=== PATIENT | female | born 1985 | race Caucasian/White ===

== ENCOUNTER → 2024-05-10 | Outpatient (CLI) | payer SELFPAY ==
--- NOTE | 2024-05-10 11:46 | US_ITS ---
STUDY: FIRST TRIMESTER OBSTETRICAL ULTRASOUND REASON FOR EXAM: Female, 38 years old spotting in early LMP: March 28, 2024. TECHNIQUE: Transvaginal TECHNICAL QUALITY: Adequate. PRIOR ULTRASOUND: None. FINDINGS: There is visualization of a single gestational sac in a normal intrauterine position. The mean sac diameter (MSD) measures 9 mm, indicating an estimated gestational age (EGA) of 5 weeks, 5 days. The gestational sac shape is within normal limits. There is a visualized yolk sac. The yolk sac measures 2.7 mm. The placenta is non-visualized. There is no demonstrated embryo ( pole). The estimated gestation age (EGA) by LMP is 6 weeks, 1 days. The estimated date of delivery (NAIDA) by LMP is January 02, 2025. The estimated gestation age (EGA) by US is 5 weeks, 5 days. The estimated date of delivery (NAIDA) by US is January 05, 2025. The uterus measures 8.7 cm x 5.9 cm x 4.2 cm. There is a 2.7 cm x 2.8 cm x 2.3 cm uterine fibroid. The cervix is closed. The patient is status post right nephrectomy. The left ovary measures 4.7 cm x 3.8 cm x 3.1 cm. There is a 1.9 cm x 1.8 cm x 1.6 cm left paraovarian cyst. There is no visualized left adnexal mass or complex lesion. There is no fluid in the cul de sac. US/Transvaginal w/Preg US IMPRESSION: Intrauterine gestational sac corresponding to 5 weeks and 5 days. No embryonic cardiac activity is noted at this time. Uterine fibroid. Left paraovarian cyst. Electronically Signed: Ishmael Montoya MD at 14:03 EST ,
[2024-05-10 13:59] LABS: hCG Titer Quant., Serum 4528 mIU/mL (1-3)
== END | disposition home or self-care (01) ==
PROVIDERS: Referring Provider Obstetrics & Gynecology; Visit Provider Obstetrics & Gynecology
DX: O26.859 Spotting complicating pregnancy, unspecified trimester (principal); Z3A.00 Weeks of gestation of pregnancy not specified
CPT/HCPCS: 36415; 76817; 84702; 86850; 86900; 86901

== ENCOUNTER → 2024-05-12 | Outpatient (CLI) | payer SELFPAY ==
[2024-05-12 11:45] LABS: hCG Titer Quant., Serum 6923 mIU/mL (1-3)
== END | disposition home or self-care (01) ==
PROVIDERS: Visit Provider Obstetrics & Gynecology
DX: O26.859 Spotting complicating pregnancy, unspecified trimester (principal); Z3A.00 Weeks of gestation of pregnancy not specified
CPT/HCPCS: 84702

== ENCOUNTER → 2024-05-24 | Outpatient (CLI) | payer SELFPAY ==
[2024-05-24 12:22] LABS: Amphetamine Urine VISTA NEGATIVE (<1000 ng/mL); Barbiturate Urine VISTA NEGATIVE (< 200 ng/mL); Benzodiazepine Urine VISTA NEGATIVE (< 200 ng/mL); Cocaine Urine VISTA NEGATIVE (< 300 ng/mL); Ecstacy Urine VISTA NEGATIVE (< 500 ng/mL); Methadone Urine VISTA NEGATIVE (< 300 ng/mL); PCP Urine VISTA NEGATIVE (< 25 ng/mL); THC Urine VISTA NEGATIVE (< 50 ng/mL); Vista UDS pH Range 4
[2024-05-24 13:04] LABS: hCG Titer Quant., Serum 17898 mIU/mL (1-3)
[2024-05-28 00:06] LABS: Chlamydia By Nucleic Acid AMP Negative (Negative); Gonococcus By Nucleic Acid AMP Negative (Negative)
== END | disposition home or self-care (01) ==
PROVIDERS: Obstetrics & Gynecology; Referring Provider Advanced Practice Midwife; Visit Provider Advanced Practice Midwife
DX: O20.0 Threatened abortion (principal); Z3A.00 Weeks of gestation of pregnancy not specified
CPT/HCPCS: 36415; 80307; 84702; 87077; 87086; 87088; 87186; 87491; 87591

== ENCOUNTER → 2024-05-29 | Outpatient (CLI) | payer SELFPAY ==
--- NOTE | 2024-05-29 10:51 | US_ITS ---
INDICATION: viability. Right oophorectomy. COMPARISON: 05/10/2024 ultrasound. FINDINGS: 60 grayscale ultrasound images obtained transvaginally demonstrate single live intrauterine measuring at 6 weeks +5 days average ultrasound age. This gives estimated date of delivery by current ultrasound of 01/17/2025. However, crown-rump length measures at 6 weeks +2 days. In addition, heart rate is only 72 bpm (which may possibly represent maternal heart rate). Yolk sac is identified. Adequate amniotic fluid for gestational age. Placenta cannot be definitively identified at this gestational age. Uterine myometrium demonstrates dominant 2.5 cm subendometrial fibroid. Uterine cervix is long and closed measuring at least 3 cm in length. Nabothian cyst at the ectocervix. Left ovary is enlarged measuring 5.0 x 4.1 x 3.0 cm without definite discrete lesion. Right ovary is absent as per history. No significant free fluid. US/Transvaginal w/Preg US IMPRESSION: Single live intrauterine measuring at 6 weeks +5 days average ultrasound age. This gives estimated date of delivery by current ultrasound of 01/17/2025. However, crown-rump length measures at 6 weeks +2 days. In addition, heart rate is only 72 bpm (which may possibly represent maternal heart rate). Recommend correlation with serial quantitative beta-hCG values as well as short interval follow-up ultrasound to confirm continued viable intrauterine . Electronically Signed: Clayton Samuel MD at 7:19 EST ,
== END | disposition home or self-care (01) ==
LOC: OPUS 10:50 → US 10:51
PROVIDERS: Referring Provider Advanced Practice Midwife; Visit Provider Advanced Practice Midwife
DX: O20.0 Threatened abortion (principal); Z3A.01 Less than 8 weeks gestation of pregnancy
CPT/HCPCS: 76817

== ENCOUNTER → 2024-06-18 | Outpatient (CLI) | payer SELFPAY ==
--- NOTE | 2024-06-18 12:17 | US_ITS ---
STUDY: FIRST TRIMESTER OBSTETRICAL ULTRASOUND REASON FOR EXAM: Female, 38 years old follow up miscarriage LMP: 03/28/2024 TECHNIQUE: Transvaginal TECHNICAL QUALITY: Adequate. PRIOR ULTRASOUND: 05/29/2024 FINDINGS: There is no demonstrated intrauterine gestational sac.. The uterus measures 8.0 x 6.5 x 4.1 cm. There is no demonstrated uterine fibroid. The cervix is closed. The endometrium measures 16 mm thick which is the upper limits of normal and is somewhat heterogeneous. Status post right oophorectomy. The left ovary measures 5.3 x 4.3 x 2.9. There is no left ovarian cyst. There is no visualized left adnexal mass or complex lesion. There is no fluid in the cul de sac. US/Transvaginal w/Preg US IMPRESSION: Heterogeneous endometrial stripe but no definite evidence of retained products of conception Electronically Signed: Shaun Garvin MD at 0:17 EST ,
[2024-06-18 14:17] LABS: hCG Titer Quant., Serum 85 mIU/mL (1-3)
== END | disposition home or self-care (01) ==
PROVIDERS: Obstetrics & Gynecology; Referring Provider Obstetrics & Gynecology; Visit Provider Obstetrics & Gynecology
DX: O03.9 Complete or unspecified spontaneous abortion without complication (principal)
CPT/HCPCS: 36415; 76817; 84702

== ENCOUNTER → 2024-12-09 | Outpatient (CLI) | payer SELFPAY ==
[2024-12-09 14:06] LABS: hCG Titer Quant., Serum 3106 mIU/mL (<9 non-preg)
== END | disposition home or self-care (01) ==
PROVIDERS: Referring Provider Obstetrics & Gynecology; Visit Provider Obstetrics & Gynecology
DX: N91.2 Amenorrhea, unspecified (principal)
CPT/HCPCS: 36415; 84702

== ENCOUNTER → 2024-12-11 | Outpatient (CLI) | payer SELFPAY ==
[2024-12-11 12:53] LABS: hCG Titer Quant., Serum 6046 mIU/mL (<9 non-preg)
--- OUTSIDE RECORDS SUMMARY | 2024-12-11 21:40 | XMS RPT_ITS | CCD ---
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 Role Phone [place] Attending Unavailable YARIEL TRIPATHI Primary Care Unavailable Yariel Tripathi Primary Care Provider Yariel Tripathi Primary Care Provider Yariel Tripathi MD Primary Care Provider Palmira VILLANUEVA MD, Frank A Primary Care Provider [phone] YARIEL TRIPATHI III Primary Care Unavailable ROXIE, TATO JAYANTILAL Referring Unavail able ROXIE, TATO CHRISTAYANSHEREENAL Admitting Unavail able JIHAN العراقي Attending Unavailable JIHAN العراقي Referring Unavailable YARIEL TRIPATHI Primary Care Unavailable MAGALY FERNANDO Admitting Unavailable MAGALY FERNANDO Primary Care Unavailable MAGALY FERNANDO Referring Unavailable REKHA PINO Attending Unavailable Yariel Tripathi MD Primary Care Provider [phone] SELF, SELF Referring Unavailable RAIZA BORGES Attending Unavailable YARIEL TRIPATHI Primary Care Unavailable SELF, SELF Referring Unavailable YARIEL TRIPATHI Primary Care Unavailable BORIS VELA Attending Unavailable MERCY WONG Attending Unavailable RAIZA BORGES Referring Unavailable YARILE TRIPATHI Primary Care Unavailable NO, PHYSICIAN Primary Care Unavailable PABLO VIGIL Attending Unavailable DOMINGA REILLY Admitting Unavailable NO, PHYSICIAN Primary Care Unavailable DOMINGA REILLY Attending Unavailable DOMINGA REILLY Consulting Unavailable Zulema Ramirez Referring Unavailshazia e Zulema Ramirez Attending Unavailabl e Care Physician, No Primary Primary Care Unava ilable Care Physician, No Primary Referring Unava ilable Zulema Ramirez Attending Unavailabl e Care Physician, No Primary Primary Care Unava ilable Care Physician, No Primary Referring Unava ilable Janice Palacios Attending Unavailable Care Physician, No Primary Primary Care Unava ilable Care Physician, No Primary Primary Care Unava ilable Samantha Laura Referring Unavailable Samantha Laura Attending Unavailable Care Physician, No Primary Referring Unava ilable Care Physician, No Primary Primary Care Unava ilable Samantha Laura Attending Unavailable Care Physician, No Primary Primary Care Unava ilable Samantha Laura Referring Unavailable Samantha Laura Attending Unavailable Zulema Ramirez Attending Unavailabl e Zulema Ramirez Referring Unavailabl e Care Physician, No Primary Primary Care Unava ilable Care Physician, No Primary Primary Care Unava ilable Zulema Ramirez Attending Unavailmult[facility] e Care Physician, No Primary Primary Care Unava ilable Zulema Ramirez Referring UnavailZulema Perdue Attending Neil e Allergies Allergy Classification Reported Allergen(s) Allergy Type Date of Onset Reaction(s) Facility Unclassified (4 sources) Homeopathic Products Propensity to adverse reactions to drug 02-16-2005 [facility] Medications Current Medications Medication Drug Class(es) Dates Sig (Normalized) Sig (Original) 200 actuat albuterol 0.09 mg/actuat dry powder inhaler (4 sources) beta2-Adrenergic Agonist Start: 10-12-2020 take 2 puff(s) by inhalation four times daily as needed Albuterol Sulfate (ProAir RespiClick) 108 (90 Base) MCG/ACT Aerosol Powder, breath activated Inhale 2 puffs 4 times daily as needed. 1 Each 0 10/12/2020 Active benzonatate 200 mg oral capsule (4 sources) Non-narcotic Antitussive Start: 10-12-2020 take 1 capsule by mouth three times daily as needed for cough benzonatate 200 MG capsule Take 1 capsule by mouth 3 times daily as needed for Cough. 21 capsule 0 10/12/2020 Active fluticasone propionate 0.05 mg/actuat metered dose nasal spray (3 sources) Corticosteroid Start: 05-29-2023 take 2 spray(s) nasal route once daily fluticasone 50 MCG/ACT Suspension nasal spray 2 sprays each nostril daily 11.1 mL 0 05/29/2023 Active 24 hr loratadine 10 mg / pseudoephedrine sulfate 240 mg extended release oral tablet (2 sources) alpha-Adrenergic Agonist Start: 06-04-2023 take 10-240 mg by mouth every twenty-four hours loratadine-pseudo ephedrine (Loratadine-D 24HR) 10-240 MG Tab SR 24 HR Indications: Recurrent acute serous otitis media of left ear Take 1 tablet by mouth daily. 7 tablet 0 06/04/2023 Active predniSONE (5 sources) Start: 05-29-2023 predniSONE 10 MG (21) Tab Therapy Pack Take 6 pills on day 1, then 5, 4, 3, 2 and 1 each day sequentially 21 Each 0 05/29/2023 Active Start: 10-12-2020 End: 05-29-2023 predniSONE 20 MG tablet 3 ta bs daily x 3days; 2 tabs daily x 3days; 1 tab daily x 3days then 1/2 tablet daily x 3days 20 tablet 0 10/12/2020 05/29/2023 Discontinued (Therapy completed) Problems Active Problems Problem Classification Problem Date Documented Date Episodic/Chronic Cardiac dysrhythmias (1 source) Ventricular premature beats; Translations: [PVC (premature ventricular contraction)] Chronic Cardiac dysrhythmias (1 source) Palpitations; Translations: [Palpitations] Episodic Coma; stupor; and brain damage (1 source) Hypersomnia; Translations: [Somnolence] Episodic Menstrual disorders (1 source) Amenorrhea, unspecified; Translations: [Amenorrhea, unspecified] Onset: 12-10-2024 Chronic Other complications of (1 source) Obesity complicating , unspecified trimester; Translations: [Obesity complicating , unspecified trimester] Onset: 05-24-2024 Chronic Other ear and sense organ disorders (3 sources) Conductive hearing loss, unilateral, left ear, with unrestricted hearing on the contralateral side; Translations: [Conductive hearing loss, unilateral] Onset: 06-05-2023 06-05-2023 Chronic Other ear and sense organ disorders (3 sources) Otalgia, left ear; Translations: [Otalgia, unspecified] Onset: 06-04-2023 06-04-2023 Episodic Other lower respiratory disease (1 source) Cough; Translations: [Cough] Episodic Other nervous system disorders (1 source) Narcolepsy without cataplexy ; Translations: [Narcolepsy without cataplexy] Chronic Other nutritional; endocrine; and metabolic disorders (2 sources) Morbid obesity; Translations: [Morbid (severe) obesity due to excess calories] Onset: 05-11-2020 05-11-2020 Chronic Other nutritional; endocrine; and metabolic disorders (3 sources) Body mass index 40+ - severely obese; Translations: [Morbid (severe) obesity due to excess calories] Onset: 05-11-2020 05-11-2020 Chronic Other upper respiratory disease (2 sources) Nasal congestion; Translations: [Nasal congestion] Onset: 06-05-2023 06-05-2023 Episodic Other upper respiratory disease (2 sources) Deviated nasal septum; Translations: [Deviated nasal septum] Onset: 06-05-2023 06-05-2023 Episodic Other upper respiratory disease (1 source) Hypertrophy of nasal turbinates; Translations: [Hypertrophy of nasal turbinates] 06-05-2023 Episodic Other upper respiratory disease (1 source) Nasal congestion; Translations: [Nasal congestion] Onset: 06-05-2023 Episodic Other upper respiratory disease (1 source) Deviated nasal septum; Translations: [Deviated nasal septum] Onset: 06-05-2023 Episodic Other upper respiratory disease (2 sources) Hypertrophy of nasal turbinates; Translations: [Hypertrophy of nasal turbinates] Onset: 06-05-2023 Episodic Otitis media and related conditions (3 sources) Chronic suppurative otitis media of left middle ear; Translations: [Other chronic suppurative otitis media, left ear] Onset: 06-05-2023 06-05-2023 Chronic Otitis media and related conditions (7 sources) Acute non-suppurative otitis media - serous; Translations: [Acute serous otitis media, left ear] Onset: 06-04-2023 05-29-2023 Episodic Residual codes; unclassified (1 source) Obstructive sleep apnea syndrome; Translations: [Obstructive sleep apnea (adult) (pediatric)] Chronic Residual codes; unclassified (1 source) Disturbance in sleep behavior; Translations: [Sleep disorder, unspecified] Episodic Unclassified (1 source) Patient encounter status; Translations: [Encounter for screening for COVID-19] Unclassified (2 sources) Facial Pain; Translations: [Facial Pain] Onset: 05-29-2023 Varicose veins of lower extremity (2 sources) Varicose veins of unspecified lower extremity with other complications; Translations: [Varicose veins of unspecified lower extremity with other complications] Onset: 01-06-2023 Episodic Past or Other Problems Problem Classification Problem Date Documented Da te Episodic/Chronic Conditions associated with dizziness or vertigo (1 source) Dizziness; Translations: [Dizzy] Episodic Hemorrhage during ; abruptio placenta; placenta previa (3 sources) Antepartum hemorrhage, unspecified, unspecified trimester; Translations: [Threatened ] Onset: 06-11-2024 Episodic Other complications of (1 source) Supervision of high risk , unspecified, unspecified trimester; Translations: [Supervision of high risk , unspecified, unspecified trimester] Onset: 05-24-2024 Episodic Other complications of (1 source) Spotting complicating , unspecified trimester; Translations: [Spotting complicating , unspecified trimester] Onset: 06-09-2024 Episodic Other connective tissue disease (1 source) Pain in left arm; Translations: [Left arm pain] Episodic Pneumonia (except that caused by tuberculosis or sexually transmitted disease) (2 sources) Pneumonia, unspecified organism; Translations: [Pneumonia, unspecified organism] Onset: 08-10-2023 Episodic Spontaneous (3 sources) Incomplete spontaneous without complication; Translations: [Complete or unspecified spontaneous without complication] Onset: 06-11-2024 Episodic Results Test Name Value Interpretation Reference Range Facility hCG Titer Quant., Serumon HCG QUANT. 3106 mIU/mL High <9 non-preg [facility] Comment on above: Result Comment: Gest ational Age 0.2-1 Week: 5-50 mIU/mL 1-2 Weeks: 50-500 mIU/mL 2-3 Weeks: 100-5000 mIU/mL 3-4 Weeks: 500-10,000 mIU/mL 4-5 Weeks:1000-50,000 mIU/mL 5-6 Weeks: 10,000-100,000 mIU/mL 6-8 Weeks: 15,000-200,000 mIU/mL 2-3 Months:10,000-100,000 mIU/mL Performed By: #### L 700.8000 #### [facility] [address] [place], [address] Numerologist Office Visit Reporton 07-01-2024 Numerologist Office Visit Report [facility] [address] [place] [address], [address] [place] [address] OFFICE VISIT Date of Service: 07/01/24 MR#: [id number] Acct: [id number] Name: ANGELA SALES Rep #: [id number] : 1985 Provider: Dr. Zulema Youssef, Age/Sex: 38/F Location: 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 COUNT INCLUDES THE [facility] Medical History Threatened Obesity affecting Advanced maternal age (AMA) in Spotting affecting Varicose veins of both lower extremities during Supervision of high-risk History of endometrial biopsy Surgical History H/O hernia repair History of right oophorectomy Family History Father Diabetes CVA (cerebral vascular accident), Onset Age: 55 Social History adopted: No household members: spouse current occupational status: unemployed pets and animals: Yes pets and animals: dog(s) history of recent travel: Yes ([place]) out of state: Yes out of country: No sexually active: Yes Smoking Status: Former smoker quit date: 04/30/24 alcohol intake: current alcohol intake frequency: holidays/special occasions only details: Not while substance use type: former substance user Date of last use: January and diet: other well-balanced diet: daily or most days caffeine: No eating out: rarely or never during the past year weight has: decreased > 10 lbs what type of physical activity do you participate in: none caroline/holiness: Shinto seatbelt use: sometimes do you feel safe at home: Yes additional social history: [employer]- Self Employed HPI Follow up miscarriage, discuss ultrasound Details: ANGELA SALES is a 38 year old who presents for follow up after miscarriage on . she had an ultrasound on 06/18 that then showed a thickened heterogenous lining but not necessarily retained products. She states that she stopped bleeding now. History 1 Elective abortions Hx Para 0 Spontaneous abortions 1 Hx # Term Pregnancies Ectopic pregnancies Hx # Pregnancies Multiple births # of living children 0 Past Pregnancies Del. Date Name GA/Weeks Outcome Route Bth Weight Infant Gen Labor Lgth Anesthesia [facility] Provider FOB 06/05/24 9 spontaneous ROS Const ROS Unobtainable: All systems reviewed are unremarkable except as noted in H Resp Resp: Reports system reviewed and no additional complaints, except as documented; Denies cough GI GI: Reports as per HPI Psych Psych: Reports system reviewed and no additional complaints, except as documented Exam Const General: cooperative, healthy appearing, comfortable and no acute distress Resp Effort Inspection: normal respiratory effort Other: bedside ultrasound shows an 8 mm lining and a left 2.5 cm ovarian simple cyst Skin General: no rashes or lesions noted Psych Appearance: grossly normal Speech and Movement: speech and movement normal Coding Level of Care Code Off vis,est,level 3 Diagnoses Miscarriage O03.9 Assessment and Plan Assessment and Plan (1) Miscarriage: Status: Acute Comment: seen in and admitted overnight, monitored, recommend repeat US, patient thinks eveyrthing has passed but unclear documentaiton. follow HCGs until negative Plan: the miscarraige now appears complete. No products of coneption left behind. She will call if she gets again. 07/01/24 1503 Date Zulema Polo Signature: Date (if applicable) CC: Normal [facility] Transvaginal w/Preg USon Transvaginal w/Preg US [facility] [address] [place] [address] Transvaginal w/Preg US MR#: [id number] Acct: [id number] Name: ANGELA SALES Rep #: [id number] : 1985 F 38 From: Shaun Garvin MD PCP: Care Physician,No Primary Status: REG CLI Study: Transvaginal w/Preg US Date of Exam: 06/18/24 Exam# [id number] Ordering Dr: Zulema Ramirez DO [id number] STUDY: FIRST TRIMESTER OBSTETRICAL ULTRASOUND REASON FOR EXAM: Female, 38 years old follow up miscarriage LMP: 03/28/2024 TECHNIQUE: Transvaginal TECHNICAL QUALITY: Adequate. PRIOR ULTRASOUND: 05/29/2024 FINDINGS: There is no demonstrated intrauterine gestational sac.. The uterus measures 8.0 x 6.5 x 4.1 cm. There is no demonstrated uterine fibroid. The cervix is closed. The endometrium measures 16 mm thick which is the upper limits of normal and is somewhat heterogeneous. Status post right oophorectomy. The left ovary measures 5.3 x 4.3 x 2.9. There is no left ovarian cyst. There is no visualized left adnexal mass or complex lesion. There is no fluid in the cul de sac. US/Transvaginal w/Preg US IMPRESSION: Heterogeneous endometrial stripe but no definite evidence of retained products of conception Electronically Signed: Shaun Garvin MD at 0:17 EST , CC: Dr. Zulema Ramirez, DO; No Primary Care Physician Environmental Air Specialist: Signed Normal [facility] hCG Titer Quant., Serumon HCG QUANT. 85 mIU/mL High 1-3 [facility] Comment on above: Order Comment: follo w up miscarriage Result Comment: hCG levels with Gestational Age Gestational Age hCG mIU/mL (IU/L) 0.2 - 1 week 5 - 50 1-2 weeks 50 - 500 2-3 weeks 100 - 5000 3-4 weeks 500 - 71027 4-5 weeks 1000 - 13236 5-6 weeks 25619 - 100,000 6-8 weeks 90974 - 200,000 2-3 months 43780 - 100,000 Performed By: #### L 700.8000 #### [facility] [address] [place], [address] CBC WITH AUTO DIFFERENTIALon 06-12-2024 AUTO NRBC 0.0 % [facility] Comment on above: Performed By: #### L [id number] #### [facility] [address] [place], [place] [address] Russell Williamson M.D. [id number] AUTO NRBC ABS COUNT 0.00 K/mcL Normal 0.00-0.00 [facility] Comment on above: Performed By: #### L [id number] #### [facility] [address] [place], [place] [address] Russell Williamson M.D. [id number] BASOPHILS ABSOLUTE COUNT 0.02 K/mcL Normal 0.00-0.30 [facility] Comment on above: Performed By: #### L [id number] #### [facility] [address] [place], [place] [address] Russell Williamson M.D. [id number] Basophils/100 WBC (Bld) 0.4 % [facility] Comment on above: Performed By: #### L [id number] #### LAB [address] [place] [address] Russell Williamson M.D. [id number] Eosinophils (Bld) [#/Vol] 0.05 10*3/uL Normal 0.00-0.50 [facility] Comment on above: Performed By: #### L [id number] #### LAB [address] [place] [address] Russell Williamson M.D. [id number] Eosinophils/100 WBC (Bld) 0.9 % Normal [facility] Comment on above: Performed By: #### L [id number] #### LAB [address] [place] [address] Russell Williamson M.D. [id number] Erythrocyte distribution width (RBC) [Ratio] 13.3 % Normal 11.6-14.8 [facility] Comment on above: Performed By: #### L [id number] #### LAB [address] [place] [address] Russell Williamson M.D. [id number] Hematocrit (Bld) [Volume fraction] 27.0 % Low 36.0-46.0 [facility] Comment on above: Performed By: #### L [id number] #### LAB [address] [place] [address] Russell Williamson M.D. [id number] Hemoglobin (Bld) [Mass/Vol] 8.9 g/dL Low 12.0-16.0 [facility] Comment on above: Performed By: #### L [id number] #### [facility] [address] [place] [address] Russell Williamson M.D. [id number] IG ABSOLUTE 0.01 K/mcL Normal 0.00-0.30 [facility] Comment on above: Performed By: #### L [id number] #### [facility] [address] [place] [address] Russell Williamson M.D. [id number] IG PERCENT 0.20 % Normal [facility] Comment on above: Result Comment: The IG parameter is the percentage of metamyelocytes, myelocytes and promyelocytes. An immature granulocyte count (IG) of 1% or more suggests the possibility of infection, an IG count of 3% is very likely related to an infection. Performed By: #### L [id number] #### LAB [address] [place] [address] Russell Williamson M.D. [id number] Lymphocytes (Bld) [#/Vol] 1.87 10*3/uL Normal 0.90-4.00 [facility] Comment on above: Performed By: #### L [id number] #### LAB [address] [place] [address] Russell Williamson M.D. [id number] Lymphocytes/100 WBC (Bld) 34.4 % Normal [facility] Comment on above: Performed By: #### L [id number] #### LAB [address] [place] [address] Russell Williamson M.D. [id number] MCH (RBC) [Entitic mass] 30.0 pg Normal 26.0-34.0 [facility] Comment on above: Performed By: #### L [id number] #### LAB [address] [place] [address] Russell Williamson M.D. [id number] MCV (RBC) [Entitic vol] 90.9 fL Normal 80.0-100.0 [facility] Comment on above: Performed By: #### L [id number] #### LAB [address] [place] [address] Russell Williamson M.D. [id number] MEAN CORPUSCULAR HEMOGLOBIN CONC 33.0 g/dL Normal 31.0-37.0 [facility] Comment on above: Performed By: #### L [id number] #### LAB [address] [place] [address] Russell Williamson M.D. [id number] Monocytes (Bld) [#/Vol] 0.60 10*3/uL Normal 0.30-0.90 [facility] Comment on above: Performed By: #### L [id number] #### LAB [address] [place] [address] Russell Williamson M.D. [id number] Monocytes/100 WBC (Bld) 11.0 % Normal [facility] Comment on above: Performed By: #### L [id number] #### LAB [address] [place] [address] Russell Williamson M.D. [id number] NEUTROPHILS ABSOLUTE COUNT 2.89 K/mcL Normal 1.70-7.00 [facility] Comment on above: Performed By: #### L [id number] #### LAB [address] [place] [address] Russell Williamson M.D. [id number] Neutrophils/100 WBC (Bld) 53.1 % Normal [facility] Comment on above: Performed By: #### L [id number] #### LAB [address] [place] [address] Russell Williamson M.D. [id number] Platelet mean volume (Bld) [Entitic vol] 9.3 fL Low 9.4-12.4 [facility] Comment on above: Performed By: #### L [id number] #### LAB [address] [place] [address] Russell Williamson M.D. [id number] Platelets (Bld) [#/Vol] 169 10*3/uL Normal 150-400 [facility] Comment on above: Performed By: #### L [id number] #### LAB [address] [place] [address] Russell Williamson M.D. [id number] RBC (Bld) [#/Vol] 2.97 10*6/uL Low 4.00-5.20 [facility] Comment on above: Performed By: #### L [id number] #### LAB [address] [place] [address] Russell Williamson M.D. [id number] WBC (Bld) [#/Vol] 5.44 10*3/uL Normal 4.50-11.00 [facility] Comment on above: Performed By: #### L [id number] #### [facility] [address] [place] [address] Russell Williamson M.D. [id number] US OB TRANSVAGINAL WITH COLO R FLOW ANY TRIMESTERon 06-12-2024 US OB TRANSVAGINAL WITH COLOR FLOW ANY TRIMESTER EXAMINATION: US OB TRANSVAGINAL WITH COLOR FLOW ANY TRIMESTER HISTORY: ORDERING SYSTEM PROVIDED HISTORY: vaginal bleeding, incomplete ab, pt passed large amount of material since last scan, TECHNOLOGIST PROVIDED HISTORY: Illness/Other Reason for exam: vaginal bleeding; incomplete ab Cancer History: u Surgery, RadiationHistory: rt oophorectomy Encounter Type: Initial Additional signs and symptoms: none ORDERING SYSTEM PROVIDED DIAGNOSIS CODES: O46.90 Vaginal bleeding in O03.4 Incomplete COMPARISON: None TECHNIQUE: Transvaginal ultrasound utilizing B-mode, M-mode, color Doppler and spectral analysis. FINDINGS: Anechoic cystic area within the cervix measures 0.9 x 0.4 x 0.7 cm. There is an additional heterogeneous area within the cervix measuring 1.9 x 0.8 x 1.9 cm. Could be retained products or hemorrhage. No definitive IUP is identified. No definitive intrauterine sac or pole. No yolk sac or evidence of cardiac activity. Uterus measures 9.8 x 5.4 x 4.9 cm. Endometrial stripe thickness 0.24 mm. No myometrial mass. Right ovary surgically absent. Left ovary identified and measures 3 x 1.7 x 2.6 cm. Normal color flow and Doppler signal. No torsion. Resistive index 0.4. There is a simple left ovarian cyst which is anechoic with through transmission measuring 1.1 x 1.3 x 1.3 cm. Probable corpus luteal cyst. No left ovarian mass. No adnexal masses are seen bilaterally. There is a small amount of simple free fluid in the posterior cul-de-sac. IMPRESSION: 1. Anechoic fluid area in cervix measuring 0.9 x 0.4 x 0.7 cm with additional heterogeneous complex area in the cervix measuring 1.9 x 0.8 x 1.9 cm. Could be incomplete but actively aborting products of conception. No definitive or live IUP seen at this time. Correlate with beta HCG and recommend continued follow-up with repeat pelvic ultrasound over the next 72 hours as clinically warranted. 2. Simple free fluid in the cul-de-sac. 3. Normal sonographic appearance of left ovary with simple left ovarian follicular cyst/corpus luteal cyst. 4. Surgically absent right ovary. Workstation ID: [id number] Dictated by: BRITT WILKINSON on MonJun 12, 2024 12:28:46 AM EST Transcribed by: BRITT WILKINSON on MonJun 12, 2024 12:28:46 AM EST Finalized by: BRITT WILKINSON on MonJun 12, 2024 12:28:46 AM EST [facility] Comment on above: Order Comment: Injur y/Trauma or Illness?:Illness/Other How long have you had these symptoms (acute/chronic)?:Acute Reason for exam?:vaginal bleeding; incomplete ab History of cancer?:u Surgeries, chemotherapy, or radiation?:rt oophorectomy Type of Exam?:Initial Additional signs and symptoms?:none ABORH VERIFICATIONon 024 ABO and Rh group Nom (Bld) Blood group A Rh(D) negative [facility] ABO and Rh group Nom (Bld) ABO/Rh Verification [facility] [facility] Comment on above: Result Comment: Sandi ent's ABO/Rh is verified. CBC WITH AUTO DIFFERENTIALon 06-11-2024 AUTO NRBC 0.0 % [facility] Comment on above: Performed By: #### L [id number] #### MH LAB [address] [address] Russell Williamson M.D. [id number] AUTO NRBC ABS COUNT 0.00 K/mcL Normal 0.00-0.00 [facility] Comment on above: Performed By: #### L [id number] #### MH LAB [address] [place], [place] [address] Russell Williamson M.D. [id number] BASOPHILS ABSOLUTE COUNT 0.05 K/mcL Normal 0.00-0.30 [facility] Comment on above: Performed By: #### L [id number] #### MH LAB [address] [place], [place] [address] Russell Williamson M.D. [id number] Basophils/100 WBC (Bld) 0.5 % Normal [facility] Comment on above: Performed By: #### L [id number] #### LAB [address] [address] Russell Williamson M.D. [id number] Eosinophils (Bld) [#/Vol] 0.04 10*3/uL Normal 0.00-0.50 [facility] Comment on above: Performed By: #### L [id number] #### LAB [address] [address] Russell Williamson M.D. [id number] Eosinophils/100 WBC (Bld) 0.4 % Normal [facility] Comment on above: Performed By: #### L [id number] #### LAB [address] [address] Russell Williamson M.D. [id number] Erythrocyte distribution width (RBC) [Ratio] 13.2 % Normal 11.6-14.8 [facility] Comment on above: Performed By: #### L [id number] #### MH LAB [address] [address] Russell Williamson M.D. [id number] Hematocrit (Bld) [Volume fraction] 29.9 % Low 36.0-46.0 [facility] Comment on above: Performed By: #### L [id number] #### LAB [address] [place] [address] Russell Williamson M.D. [id number] Hemoglobin (Bld) [Mass/Vol] 9.7 g/dL Low 12.0-16.0 [facility] Comment on above: Performed By: #### L [id number] #### MH LAB [address] [address] Russell Williamson M.D. [id number] IG ABSOLUTE 0.02 K/mcL Normal 0.00-0.30 [facility] Comment on above: Performed By: #### L [id number] #### MH LAB [address] [place] [address] Russell Williamson M.D. [id number] IG PERCENT 0.20 % [facility] Comment on above: Result Comment: The IG parameter is the percentage of metamyelocytes, myelocytes and promyelocytes. An immature granulocyte count (IG) of 1% or more suggests the possibility of infection, an IG count of 3% is very likely related to an infection. Performed By: #### L [id number] #### LAB [address] [place] [address] Russell Williamson M.D. [id number] Lymphocytes (Bld) [#/Vol] 1.27 10*3/uL Normal 0.90-4.00 [facility] Comment on above: Performed By: #### L [id number] #### LAB [address] [address] Russell Williamson M.D. [id number] Lymphocytes/100 WBC (Bld) 12.4 % Normal [facility] Comment on above: Performed By: #### L [id number] #### LAB [address] [address] Russell Williamson M.D. [id number] MCH (RBC) [Entitic mass] 30.5 pg Normal 26.0-34.0 [facility] Comment on above: Performed By: #### L [id number] #### LAB [address] [address] Russell Williamson M.D. [id number] MCV (RBC) [Entitic vol] 94.0 fL Normal 80.0-100.0 [facility] Comment on above: Performed By: #### L [id number] #### LAB [address] [address] Russell Williamson M.D. [id number] MEAN CORPUSCULAR HEMOGLOBIN CONC 32.4 g/dL Normal 31.0-37.0 [facility] Comment on above: Performed By: #### L [id number] #### LAB [address] [place] [address] Russell Williamson M.D. [id number] Monocytes (Bld) [#/Vol] 0.85 10*3/uL Normal 0.30-0.90 [facility] Comment on above: Performed By: #### L [id number] #### LAB [address] [address] Russell Williamson M.D. [id number] Monocytes/100 WBC (Bld) 8.3 % Normal [facility] Comment on above: Performed By: #### L [id number] #### LAB [address] [address] Russell Williamson M.D. [id number] NEUTROPHILS ABSOLUTE COUNT 8.00 K/mcL High 1.70-7.00 [facility] Comment on above: Performed By: #### L [id number] #### LAB [address] [address] Russell Williamson M.D. [id number] Neutrophils/100 WBC (Bld) 78.2 % [facility] Comment on above: Performed By: #### L [id number] #### LAB [address] [address] Russell Williamson M.D. [id number] Platelet mean volume (Bld) [Entitic vol] 9.3 fL Low 9.4-12.4 [facility] Comment on above: Performed By: #### L [id number] #### LAB [address] [address] Russell Williamson M.D. [id number] Platelets (Bld) [#/Vol] 165 10*3/uL Normal 150-400 [facility] Comment on above: Performed By: #### L [id number] #### [facility] LAB [address] [address] Russell Williamson M.D. [id number] RBC (Bld) [#/Vol] 3.18 10*6/uL Low 4.00-5.20 [facility] Comment on above: Performed By: #### L [id number] #### MH LAB [address] [address] Russell Williamson M.D. [id number] WBC (Bld) [#/Vol] 10.23 10*3/uL Normal 4.50-11.00 [facility] Comment on above: Performed By: #### L [id number] #### LAB [address] [address] Russell Williamson M.D. [id number] AUTO NRBC 0.0 % Normal [facility] Comment on above: Performed By: #### L [id number] #### LAB [address] [address] Russell Williamson M.D. [id number] AUTO NRBC ABS COUNT 0.00 K/mcL Normal 0.00-0.00 [facility] Comment on above: Performed By: #### L [id number] #### LAB [address] [address] Russell Williamson M.D. [id number] BASOPHILS ABSOLUTE COUNT 0.04 K/mcL Normal 0.00-0.30 [facility] Comment on above: Performed By: #### L [id number] #### LAB [address] [address] Russell Williamson M.D. [id number] Basophils/100 WBC (Bld) 0.5 % [facility] Comment on above: Performed By: #### L [id number] #### LAB [address] [place] [address] Russell Williamson M.D. [id number] Eosinophils (Bld) [#/Vol] 0.14 10*3/uL Normal 0.00-0.50 [facility] Comment on above: Performed By: #### L [id number] #### LAB [address] [place] [address] Russell Williamson M.D. [id number] Eosinophils/100 WBC (Bld) 1.7 % [facility] Comment on above: Performed By: #### L [id number] #### LAB [address] [place] [address] Russell Williamson M.D. [id number] Erythrocyte distribution width (RBC) [Ratio] 13.3 % Normal 11.6-14.8 [facility] Comment on above: Performed By: #### L [id number] #### LAB [address] [address] Russell Williamson M.D. [id number] Hematocrit (Bld) [Volume fraction] 36.8 % Normal 36.0-46.0 [facility] Comment on above: Performed By: #### L [id number] #### LAB [address] [address] Russell Williamson M.D. [id number] Hemoglobin (Bld) [Mass/Vol] 12.4 g/dL Normal 12.0-16.0 [facility] Comment on above: Performed By: #### L [id number] #### LAB [address] [address] Russell Williamson M.D. [id number] IG ABSOLUTE 0.03 K/mcL Normal 0.00-0.30 [facility] Comment on above: Performed By: #### L [id number] #### LAB [address] [address] Russell Williamson M.D. [id number] IG PERCENT 0.40 % [facility] Comment on above: Result Comment: The IG parameter is the percentage of metamyelocytes, myelocytes and promyelocytes. An immature granulocyte count (IG) of 1% or more suggests the possibility of infection, an IG count of 3% is very likely related to an infection. Performed By: #### L [id number] #### LAB [address] [address] Russell Williamson M.D. [id number] Lymphocytes (Bld) [#/Vol] 2.14 10*3/uL Normal 0.90-4.00 [facility] Comment on above: Performed By: #### L [id number] #### LAB [address] [address] Russell Williamson M.D. [id number] Lymphocytes/100 WBC (Bld) 25.3 % Normal [facility] Comment on above: Performed By: #### L [id number] #### LAB [address] [address] Russell Williamson M.D. [id number] MCH (RBC) [Entitic mass] 30.5 pg Normal 26.0-34.0 [facility] Comment on above: Performed By: #### L [id number] #### LAB [address] [address] Russell Williamson M.D. [id number] MCV (RBC) [Entitic vol] 90.4 fL Normal 80.0-100.0 [facility] Comment on above: Performed By: #### L [id number] #### LAB [address] [address] Russell Williamson M.D. [id number] MEAN CORPUSCULAR HEMOGLOBIN CONC 33.7 g/dL Normal 31.0-37.0 [facility] Comment on above: Performed By: #### L [id number] #### LAB [address] [address] Russell Williamson M.D. [id number] Monocytes (Bld) [#/Vol] 0.81 10*3/uL Normal 0.30-0.90 [facility] Comment on above: Performed By: #### L [id number] #### LAB [address] [address] Russell Williamson M.D. [id number] Monocytes/100 WBC (Bld) 9.6 % Normal [facility] Comment on above: Performed By: #### L [id number] #### LAB [address] [address] Russell Williamson M.D. [id number] NEUTROPHILS ABSOLUTE COUNT 5.29 K/mcL Normal 1.70-7.00 [facility] Comment on above: Performed By: #### L [id number] #### LAB [address] [address] Russell Williamson M.D. [id number] Neutrophils/100 WBC (Bld) 62.5 % Normal [facility] Comment on above: Performed By: #### L [id number] #### [facility] LAB [address] [address] Russell Williamson M.D. [id number] Platelet mean volume (Bld) [Entitic vol] 9.5 fL Normal 9.4-12.4 [facility] Comment on above: Performed By: #### L [id number] #### [facility] LAB [address] [address] Russell Williamson M.D. [id number] Platelets (Bld) [#/Vol] 197 10*3/uL Normal 150-400 [facility] Comment on above: Performed By: #### L [id number] #### [facility] LAB [address] [address] Russell Williamson M.D. [id number] RBC (Bld) [#/Vol] 4.07 10*6/uL Normal 4.00-5.20 [facility] Comment on above: Performed By: #### L [id number] #### [facility] LAB [address] [address] Russell Williamson M.D. [id number] WBC (Bld) [#/Vol] 8.45 10*3/uL Normal 4.50-11.00 [facility] Comment on above: Performed By: #### L [id number] #### LAB [address] [address] Russell Williamson M.D. [id number] COMPREHENSIVE METABOLIC PANE Jai 06-11-2024 Albumin [Mass/Vol] 4.0 g/dL Normal 3.2-5.2 [facility] Comment on above: Order Comment: [facility] has implemented the eGFR calculation approach that does not have a coefficient for race that conforms to the NKF-ASN Task Force Recommendations. Performed By: #### 4 [id number] #### [facility] LAB [address] [address] Russell Williamson M.D. [id number] ALP [Catalytic activity/Vol] 39 U/L Low 40-140 [facility] Comment on above: Order Comment: [facility] has implemented the eGFR calculation approach that does not have a coefficient for race that conforms to the NKF-ASN Task Force Recommendations. Performed By: #### 4 [id number] #### LAB [address] [address] Russell Williamson M.D. [id number] ALT [Catalytic activity/Vol] 29 U/L Normal 0-35 U/L [facility] Comment on above: Order Comment: [facility] has implemented the eGFR calculation approach that does not have a coefficient for race that conforms to the NKF-ASN Task Force Recommendations. Performed By: #### 4 [id number] #### LAB [address] [address] Russell Williamson M.D. [id number] Anion gap [Moles/Vol] 14 mmol/L Normal 10-20 [facility] Comment on above: Order Comment: [facility] has implemented the eGFR calculation approach that does not have a coefficient for race that conforms to the NKF-ASN Task Force Recommendations. Performed By: #### 4 [id number] #### LAB [address] [address] Russell Williamson M.D. [id number] AST [Catalytic activity/Vol] 26 U/L Normal 0-35 U/L [facility] Comment on above: Order Comment: [facility] has implemented the eGFR calculation approach that does not have a coefficient for race that conforms to the NKF-ASN Task Force Recommendations. Result Comment: Slig htly Hemolyzed Performed By: #### 4 [id number] #### LAB [address] [address] Russell Williamson M.D. [id number] Bilirubin [Mass/Vol] 0.3 mg/dL Normal 0.0-1.3 [facility] Comment on above: Order Comment: [facility] has implemented the eGFR calculation approach that does not have a coefficient for race that conforms to the NKF-ASN Task Force Recommendations. Performed By: #### 4 [id number] #### LAB [address] [address] Russell Williamson M.D. [id number] Calcium [Mass/Vol] 8.5 mg/dL Normal 8.4-10.2 [facility] Comment on above: Order Comment: [facility] has implemented the eGFR calculation approach that does not have a coefficient for race that conforms to the NKF-ASN Task Force Recommendations. Performed By: #### 4 [id number] #### LAB [address] [id number] Russell Williamson M.D. [id number] Chloride [Moles/Vol] 106 mmol/L Normal 98-108 [facility] Comment on above: Order Comment: [facility] has implemented the eGFR calculation approach that does not have a coefficient for race that conforms to the NKF-ASN Task Force Recommendations. Performed By: #### 4 6126 #### LAB [address] [address] Russell Williamson M.D. [id number] Creatinine [Mass/Vol] 0.53 mg/dL Normal 0.40-1.10 [facility] Comment on above: Order Comment: [facility] has implemented the eGFR calculation approach that does not have a coefficient for race that conforms to the NKF-ASN Task Force Recommendations. Performed By: #### 4 6126 #### LAB [address] [address] Russell Williamson M.D. [id number] EGFR 123 mL/min/1.73 m2 Normal >=60 [facility] Comment on above: Order Comment: [facility] has implemented the eGFR calculation approach that does not have a coefficient for race that conforms to the NKF-ASN Task Force Recommendations. Result Comment: Mandi mated GFR was calculated using the 2020 CKD-EPI creatinine equation. Performed By: #### 4 6126 #### LAB [address] [address] Russell Williamson M.D. [id number] Glucose [Mass/Vol] 126 mg/dL High 65-99 [facility] Comment on above: Order Comment: [facility] has implemented the eGFR calculation approach that does not have a coefficient for race that conforms to the NKF-ASN Task Force Recommendations. Performed By: #### 4 6126 #### LAB [address] [id number] Russell Williamson M.D. [id number] HCO3 (Bld) [Moles/Vol] 22 mmol/L Normal 21-32 [facility] Comment on above: Order Comment: [facility] has implemented the eGFR calculation approach that does not have a coefficient for race that conforms to the NKF-ASN Task Force Recommendations. Performed By: #### 4 6126 #### LAB [address] [id number] Russell Williamson M.D. [id number] Potassium [Moles/Vol] 3.7 mmol/L Normal 3.5-5.1 [facility] Comment on above: Order Comment: [facility] has implemented the eGFR calculation approach that does not have a coefficient for race that conforms to the NKF-ASN Task Force Recommendations. Result Comment: Slig htly Hemolyzed Performed By: #### 4 6126 #### LAB [address] [address] Russell Williamson M.D. [id number] Protein [Mass/Vol] 6.3 g/dL Normal 6.0-8.0 [facility] Comment on above: Order Comment: [facility] has implemented the eGFR calculation approach that does not have a coefficient for race that conforms to the NKF-ASN Task Force Recommendations. Performed By: #### 4 6126 #### LAB [address] [address] Russell Williamson M.D. [id number] Sodium [Moles/Vol] 138 mmol/L Normal 135-145 [facility] Comment on above: Order Comment: [facility] has implemented the eGFR calculation approach that does not have a coefficient for race that conforms to the NKF-ASN Task Force Recommendations. Performed By: #### 4 6126 #### LAB [address] [address] Russell Williamson M.D. [id number] Urea nitrogen [Mass/Vol] 11 mg/dL Normal 8-25 [facility] Comment on above: Order Comment: [facility] has implemented the eGFR calculation approach that does not have a coefficient for race that conforms to the NKF-ASN Task Force Recommendations. Performed By: #### 4 6126 #### LAB [address] [place], [place] [address] Russell Williamson M.D. [id number] Urea nitrogen/Creatinine [Mass ratio] 20.8 mg/mg High 10.0-20.0 [facility] Comment on above: Order Comment: [facility] has implemented the eGFR calculation approach that does not have a coefficient for race that conforms to the NKF-ASN Task Force Recommendations. Performed By: #### 4 6126 #### LAB [address] [place], [place] [address] Russell Williamson M.D. [id number] ED Prov Noteon 06-11-2024 ED Prov Note ED PROVIDER NOTE [facility] EMERGENCY DEPARTMENT NAME: Angela Sales AGE: 38 y.o. : 1985 VISIT DATE: 06/11/2024 CSN: [id number] PCP: No, Physician Chief Complaint Patient presents with Vaginal Bleeding Vaginal Bleeding Patient reports vaginal bleeding onset 4:45 PM today. It was preceded by abdominal cramping onset last night through today. She is 10 weeks last seen by Dr. Adams material worker in [place] 6 days ago. The material worker last Monday noted no heart tones and previous to this visit had a quant of 17,000. Patient now presents by EMS with copious blood clots but she has no pain no dizziness no chest pain no shortness of breath or other symptoms. Past Medical History: Diagnosis Date PCOS (polycystic ovarian syndrome) Past Surgical History: Procedure Laterality Date HERNIA REPAIR ovary removed Right 2010 History reviewed. No pertinent family history. Social History Socioeconomic History Marital status: Tobacco Use Smoking status: Former Current packs/day: 0.50 Average packs/day: 0.5 packs/day for 10.0 years (5.0 ttl pk-yrs) Types: Cigarettes Smokeless tobacco: Never Substance and Sexual Activity Alcohol use: Never Drug use: Never No current outpatient medications on file prior to encounter. No Known Allergies Review of Systems Genitourinary: Positive for vaginal bleeding. All other systems reviewed and are negative. Patient Vitals for the past 24 hrs: BP Temp Pulse Resp SpO2 Height Weight 06/11/24 1756 -- -- (!) 107 -- -- -- -- 06/11/24 1755 (!) 136/100 98.1 degrees F (36.7 degrees C) -- 18 100 % -- -- 06/11/24 1748 -- -- -- -- -- 5' 4 81.6 kg (180 lb) Physical Exam Vitals reviewed. Constitutional: Appearance: Normal appearance. HENT: Head: Normocephalic. Mouth/Throat: Mouth: Mucous membranes are moist. Eyes: Conjunctiva/sclera: Conjunctivae normal. Cardiovascular: Rate and Rhythm: Tachycardia present. Heart sounds: Normal heart sounds. Musculoskeletal: General: Normal range of motion. Cervical back: Normal range of motion and neck supple. Pulmonary: Breath sounds: Normal breath sounds. Abdominal: Palpations: Abdomen is soft. Genitourinary: Comments: With light bulb assembler present a vaginal speculum exam was noted with no vaginal tears. She has large clots removed and what appeared to be a small piece of tissue however no definite specific products of conception other than the tissue. Skin: General: Skin is warm and dry. Neurological: General: No focal deficit present. Mental Status: She is alert and oriented to person, place, and time. Laboratory & Radiographic Imaging (if done): Results for orders placed or performed during the hospital encounter of 06/11/24 CBC Auto Differential Result Value Ref Range WBC 8.45 4.50 - 11.00 K/mcL RBC 4.07 4.00 - 5.20 M/mcL Hemoglobin 12.4 12.0 - 16.0 g/dL Hematocrit 36.8 36.0 - 46.0 % MCV 90.4 80.0 - 100.0 fL MCH 30.5 26.0 - 34.0 pg MCHC 33.7 31.0 - 37.0 g/dL Platelets 197 150 - 400 K/mcL RDW - CV 13.3 11.6 - 14.8 % MPV 9.5 9.4 - 12.4 fL Neutrophils 62.5 % Lymphocytes 25.3 % Monocytes 9.6 % Eosinophils 1.7 % Basophils 0.5 % IG Percent 0.40 % Neutrophils Abs 5.29 1.70 - 7.00 K/mcL Lymphocytes Abs 2.14 0.90 - 4.00 K/mcL Monocytes Abs 0.81 0.30 - 0.90 K/mcL Eosinophils Abs 0.14 0.00 - 0.50 K/mcL Basophils Abs 0.04 0.00 - 0.30 K/mcL IG Absolute 0.03 0.00 - 0.30 K/mcL Nucleated RBC 0.0 % Nucleated RBC Abs 0.00 0.00 - 0.00 K/mcL No orders to display Procedures Medical Decision Making Patient is tachycardic but normotensive. She has known demise and had initially declined Cytotec. Her plan at this time for care is IV fluids checking labs Rh status type and screen. Will get an ultrasound once her exam is stabilized and we can remove some of the clots that are actively coming out. Once the workup is completed I will have a further discussion with Dr. Manzano from OB as we initially spoke regarding the use of Cytotec before the ultrasound and she advised against it. Patient is in agreement with this plan. 1 hour after arrival the patient's heart rate has come down to 92 remains normotensive and although she is still having vaginal bleeding it is now significantly less. She is going for ultrasound Ultrasound is reviewed and discussed with the material worker. Based on this information I had a discussion with the patient regarding option 1 discharge home and continue expectant management option to just discharge home and to take the Cytotec and pain medicine as she was previously prescribed or option 3 a D&C. The patient would prefer option 1 and she does have follow-up in 2 days time knowing that her quant is now 5000 down from previously 17,000. She would prefer to avoid the Cytotec and is adamant about not wanting a D&C. She is comfortable with discharge plan understands (more content not included)... Normal [facility] HCG, BLOOD, QUANTITATIVEon 1 08-12-2023 HCG, QUANTITATIVE 5088 mIU/mL High 0-5 [facility] Comment on above: Order Comment: Males and non females: <5 mIU/mL Females during : 3-4 weeks 9-130 mIU/mL 4-5 weeks 75-2600 mIU/mL 5-6 weeks 850-20,800 mIU/mL 6-7 weeks 4000-100,200 mIU/mL 7-12 weeks 11,500-289,000 mIU/mL 12-16 weeks 18,300-137,000 mIU/mL 16-29 weeks 1,400-53,000 mIU/mL 29-41 weeks 940-60,000 mIU/mL Performed By: #### 4 5827 #### LAB [address] [place], [place] [address] Russell Williamson M.D. [id number] PT/INRon 06-11-2024 INR Coag (PPP) [Relative time] 1.1 {INR} Normal 0.8-1.1 [facility] Comment on above: Order Comment: Andrew richards the induction phase of oral anticoagulation, the INR may not reflect the anticoagulation status of the patient. Therapeutic ranges for INR's are: Most clinical situations: INR 2.0-3.0 Mechanical Prosthetic Valve: INR 2.5-3.5 Critical: INR >5.0 Performed By: #### 4 6391 #### LAB [address] [place], [place] [address] Russell Williamson M.D. [id number] PT Coag (PPP) [Time] 13.9 s Normal 11.8-14.3 [facility] Comment on above: Order Comment: Andrew richards the induction phase of oral anticoagulation, the INR may not reflect the anticoagulation status of the patient. Therapeutic ranges for INR's are: Most clinical situations: INR 2.0-3.0 Mechanical Prosthetic Valve: INR 2.5-3.5 Critical: INR >5.0 Performed By: #### 4 6391 #### LAB [address], [place] [address] Russell Williamson M.D. [id number] TYPE AND SCREENon 06-11-2024 TYPE AND SCREEN ABORH: A Negative AB SCREEN: Negative EXPIRATION DATE: 06/14/2024 23:59 EST Normal [facility] US OB TRANSVAGINAL WITH COLO R FLOW ANY TRIMESTERon 06-11-2024 US OB TRANSVAGINAL WITH COLOR FLOW ANY TRIMESTER EXAMINATION: US OB TRANSVAGINAL WITH COLOR FLOW ANY TRIMESTER HISTORY: ORDERING SYSTEM PROVIDED HISTORY: Miscarriage now, TECHNOLOGIST PROVIDED HISTORY: Illness/Other Reason for exam: vag bleeding; miscarriage Cancer History: u Surgery, RadiationHistory: u Encounter Type: Initial Additional signs and symptoms: none ORDERING SYSTEM PROVIDED DIAGNOSIS CODES: COMPARISON: None. TECHNIQUE: Endovaginal ultrasound of the pelvis with grayscale and Doppler interrogation. FINDINGS: The uterus measured 10.03 cm in length x 5.21 cm AP x 4.73 cm transverse. An elongated cystic structure is identified within the endometrial canal at the lower uterine segment extending into the endocervical canal that is consistent with a gestational sac with a mean diameter of 2.54 cm, corresponding to 7 weeks 5 days. The crown-rump length measured 4.2 mm, corresponding to 7 weeks 0 days. No heart motion is seen. Adjacent heterogeneous tissue within the endometrial canal at the uterine body is consistent with blood products. The left ovary measures 2.19 x 2.07 x 1.41 cm and contains a 1.26 cm peripheral cyst. The left ovary has normal intrinsic arterial and venous waveforms for which the arterial resistive index is 0.42. The right ovary was not visualized. Minimal free fluid is seen within the pelvis. IMPRESSION: 1. Single intrauterine with an estimated age of 7 weeks 0 days. 2. No heart motion consistent with demise, for which the appearance and location of the gestational sac is consistent with a miscarriage in progress. DPR/alt Workstation ID: [id number] Dictated by: MAGALY LEE on MonJun 11, 2024 8:24:28 PM EST Transcribed by: JOHN KOHLER on MonJun 11, 2024 8:34:33 PM EST Finalized by: MAGALY LEE on MonJun 11, 2024 8:35:13 PM EST Normal [facility] Comment on above: Order Comment: Injur y/Trauma or Illness?:Illness/Other How long have you had these symptoms (acute/chronic)?:Acute Reason for exam?:vag bleeding; miscarriage History of cancer?:u Surgeries, chemotherapy, or radiation?:u Type of Exam?:Initial Additional signs and symptoms?:none Numerologist Office Visit Reporton 06-05-2024 Numerologist Office Visit Report [facility]'[address], [address] [place] [address] OFFICE VISIT Date of Service: 06/05/24 MR#: [id number] Acct: [id number] Name: ANGELA SALES Rep #: [id number] : 1985 Provider: Dr. Janice proctor MD Age/Sex: 38/F Location: [facility] Status: Signed with Addenda ADDENDUM by Dr. Janice Palacios MD on 06/14/24 at 1417 Assessment and Plan Assessment and Plan (1) Obesity affecting : Status: Acute (2) Advanced maternal age (AMA) in : Status: Acute (3) Former cigarette smoker: Status: Acute Comment: Quit April (4) Supervision of high-risk : Status: Acute Comment: , NAIDA 01/02/25, Bari (5) : Status: Acute Qualifiers: Weeks of gestation: 9 weeks Qualified Code(s): Z3A.09 - 9 weeks gestation of Comment: declined NIPT Carrier testing (6) Recent weight loss: Status: Acute Comment: lost 100# since July, (7) PCOS (polycystic ovarian syndrome): Status: Acute Comment: denies any thyroid disorder (8) Varicose veins of both lower extremities during : Status: Acute (9) Marijuana use, episodic: Status: Acute Comment: discussed with pt tox screen initial random, used edibles last used 01/2024 (10) Spotting affecting : Status: Acute Comment: HCGx 2 (11) Miscarriage: Status: Acute Comment: seen in and admitted overnight, monitored, recommend repeat US, patient thinks eveyrthing has passed but unclear documentaiton. follow HCGs until negative Orders: Orders POC Urinalysis 2 Dip (Clinic) 06/05/24 Medications: New misoprostol (Cytotec) 800 mcg (4 x 200 mcg) PO .complex 8 tabs 1RF Discontinued oxycodone-acetaminoph en 5-325 mg (Percocet) Discontinued Reason: By Stop Date 1 TAB PO Q4H 3 days PRN 18 tabs 0RF pain O20.0 - Threatened 06/14/24 1417 Date Janice Palacios MD cc: * Signed Intake Vital Signs 05/24/24 10:37 06/05/24 13:05 Height 5 ft 4 in 5 ft 4 in Weight: 178 lb 4 oz 181 lb 4 oz BMI 30.6 31.1 BP 121/85 H 110/73 Blood Pressure Location Rt brachial Position Sitting Intake Visit Reasons: Recheck US in office Chief Complaint: US rescan Is patient in pain?: Yes Allergies No Known Allergies Allergy (Verified 06/05/24 13:10) Medications ???Medication ???Instructions ???Recorded ???Confirmed ???Type multivitamin no.47-iron fum 27 cap PO 05/14/24 06/05/24 History mg-folate no.1 1 mg-dha 300 mg capsule (PNV-DHA) misoprostol 200 mcg tablet 800 mcg (4 x 200 mcg) PO .complex 06/06/24 06/06/24 Rx (Cytotec) #8 tabs oxycodone-acetaminoph en 5 mg-325 1 tab PO Q4H PRN pain 3 days #18 06/06/24 Rx mg tablet (Percocet) tabs Last Menstrual Period: 03/28/24 Zika: Zika virus screening: Negative : Yes Nurse's Note: US rescan PFSH PFSH Medical History History of endometrial biopsy Surgical History H/O hernia repair History of right oophorectomy Family History Father Diabetes CVA (cerebral vascular accident), Onset Age: 55 Social History adopted: No household members: spouse current occupational status: unemployed pets and animals: Yes pets and animals: dog(s) history of recent travel: Yes ([place]) out of state: Yes out of country: No sexually active: Yes Smoking Status: Former smoker quit date: 04/30/24 alcohol intake: current alcohol intake frequency: holidays/special occasions only details: Not while substance use type: former substance user Date of last use: January and diet: other well-balanced diet: daily or most days caffeine: No eating out: rarely or never during the past year weight has: decreased > 10 lbs what type of physical activity do you participate in: none caroline/holiness: Shinto seatbelt use: sometimes do you feel safe at home: Yes 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 repeat ultrasound today shows 3 mm CRL with no FHT activity. confirmed demise. she has had some brown spotting but minimal cramping. she is coping appropriately with loss. large yolk sac seen. small bleeding seen around sac. OB Visit NAIDA Calculator Estimated Delivery Valdemar (more content not included)... Normal [facility] Transvaginal w/Preg USon Transvaginal w/Preg US [facility] Services [address] [place] [address] [id number] Transvaginal w/Preg US MR#: [id number] Acct: [id number] Name: ANGELA SALES Rep #: [id number] : 1985 F 38 From: Clayton Samuel MD PCP: Care Physician,No Primary Status: REG CLI Study: Transvaginal w/Preg US Date of Exam: 05/29/24 Exam# [id number] Ordering Dr: Samantha Laura CNM [id number] INDICATION: viability. Right oophorectomy. COMPARISON: 05/10/2024 ultrasound. __ FINDINGS: 60 grayscale ultrasound images obtained transvaginally demonstrate single live intrauterine measuring at 6 weeks +5 days average ultrasound age. This gives estimated date of delivery by current ultrasound of 01/17/2025. However, crown-rump length measures at 6 weeks +2 days. In addition, heart rate is only 72 bpm (which may possibly represent maternal heart rate). Yolk sac is identified. Adequate amniotic fluid for gestational age. Placenta cannot be definitively identified at this gestational age. Uterine myometrium demonstrates dominant 2.5 cm subendometrial fibroid. Uterine cervix is long and closed measuring at least 3 cm in length. Nabothian cyst at the ectocervix. Left ovary is enlarged measuring 5.0 x 4.1 x 3.0 cm without definite discrete lesion. Right ovary is absent as per history. No significant free fluid. US/Transvaginal w/Preg US IMPRESSION: Single live intrauterine measuring at 6 weeks +5 days average ultrasound age. This gives estimated date of delivery by current ultrasound of 01/17/2025. However, crown-rump length measures at 6 weeks +2 days. In addition, heart rate is only 72 bpm (which may possibly represent maternal heart rate). Recommend correlation with serial quantitative beta-hCG values as well as short interval follow-up ultrasound to confirm continued viable intrauterine . Electronically Signed: Clayton Samuel MD at 7:19 EST , CC: ALF Laura; No Primary Care Physician Environmental Air Specialist: Signed Normal [facility] Chlamydia/GC LAUREN aptimaon CHLAMY,NUC ACID Negative Normal Negative [facility] Comment on above: Performed By: #### L 505.5000, M100.2200, L7000.1800 ####[facility] [address] [place], [address] GC BY NUC ACID Negative Normal Negative [facility] Comment on above: Result Comment: Perf ormed at: =G - [facility] [address] [place] [id number] Coarse Wire Drawer: Sheree Majano MD, Phone: [phone] Performed By: #### L 505.5000, M100.2200, L7000.1800 ####[facility] [address] [place], [address] Urine Cultureon 05-26-2024 [facility] Enterococcus faecali s [place] Count 25,000-50,000 Enterococcus faecalis: REACTION Ampicillin Islt BRIAN <=2 Ciprofloxacin Islt BRIAN <=0.5 S Gentamicin Synergy Susc Islt SYN-S S levoFLOXacin Islt BRIAN 1 S Linezolid Islt BRIAN 2 S Nitrofurantoin Islt BRIAN <=16 S Streptomycin High Pot Susc Islt SYN-S S Tetracycline Islt BRIAN <=1 S Vancomycin Islt BRIAN 2 S Normal [facility] Comment on above: Performed By: #### L 505.5000, M100.2200, L7000.1800 ####[facility] [address] [place], [address] Numerologist Office Visit Reporton 05-24-2024 Numerologist Office Visit Report [facility] [address], [address] [place] [address] OFFICE VISIT Date of Service: 05/24/24 MR#: [id number] Acct: [id number] Name: ANGELA SALES Rep #: [id number] : 1985 Provider: ALF Flynn ams Age/Sex: 38/F Location: 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 Required: No Is patient in pain?: No Allergies No Known Allergies Allergy (Verified 05/24/24 10:30) Medications ???Medication ???Instructions ???Recorded ???Confirmed ???Type multivitamin no.47-iron fum 27 cap PO 05/14/24 05/24/24 History mg-folate no.1 1 mg-dha 300 mg capsule (PNV-DHA) Last Menstrual Period: 03/28/24 Zika: Zika virus screening: Negative : Yes PFSH PFSH Medical History History of endometrial biopsy Surgical History H/O hernia repair History of right oophorectomy Family History Father Diabetes CVA (cerebral vascular accident), Onset Age: 55 Social History adopted: No household members: spouse current occupational status: unemployed pets and animals: Yes pets and animals: dog(s) history of recent travel: Yes ([place]) out of state: Yes out of country: No sexually active: Yes Smoking Status: Former smoker quit date: 04/30/24 alcohol intake: current alcohol intake frequency: holidays/special occasions only details: Not while substance use type: former substance user Date of last use: January and diet: other well-balanced diet: daily or most days caffeine: No eating out: rarely or never during the past year weight has: decreased > 10 lbs what type of physical activity do you participate in: none caroline/holiness: Shinto seatbelt use: sometimes do you feel safe at home: Yes 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 OB Visit NAIDA Calculator Estimated Delivery Date Method Current WG Current Estimate 01/02/25 LMP (Certain) 8w 1d Comments: HIV: Urine Culture: Sequential Screen: NIPT Screen: Estimated Due Date: 01/02/25 Expected Delivery Route/Plan Labor Preferences- CB/BF classes: [] labor support person: [] labor intervention preferences: [] pain management options preferred: [] cut cord/dad catch: [] : [] PP control planned: [] discussed possible routes of delivery and associated risks: [] special requests: [] Specific Issue/Plans Covid status: [] Flu vaccine: [] Tdap vaccine: [] Rhogam: [] LARC form signed: [] Problem list reviewed and updated with the most current plan of care details and appropriate orders placed. Relevant counseling for the gestational age provided. Continue routine care and follow up unless otherwise noted in visit notes/problem list details Initial Weight: Not Recorded Date -???-???-???-???-???- ???-???-???-???-???-? ??-???- EGA Weight BP Urine Prot -???-???-???-???-???- ???-???-???-???-???-? ??-???- Glucose FHR FuHt Pres Dilation -???-???-???-???-???- ???-???-???-???-???-? ??-???- Effaced St Visit Note 05/24/24 -???-???-???-???-???- ???-???-???-???-???-? ??-???- 8w 1d 178 lb 4 oz 121/85 -???-???-???-???-???- ???-???-???-???-???-? ??-???- 68 -???-???-???-???-???- ???-???-???-???-???-? ??-???- KW-CRL not c ons with dates. measuring 6 weeks today. declines NIPT. formal scan ordered Menstrual History Last Menstrual Period: 03/28/24 Reported LMP: definite Normal amount/duration: No (staff interpreter than normal.) Frequency in days: 28 On hormonal BC at conception: No hCG+: 04/29/24 Antepartum Record Genetic Screening: Congenital Heart Defect: Other, Neural Tube Defect: Other, Hemoglobinopathy Or Carrier: Other, Cystic Fibrosis: Other, Chromosome Abnormality: Other, Ramirez-Sachs: Other, Hemophilia: Other, Intellectual Disability/Autism: Other, Recurrent Loss/Stillbirth: Other, Other Structural Defect: Other, Other Genetic Disease: Other and Maternal Metabolic Disorder: Other Infection History: Live with someone with TB or Exposed to TB: No, Patient or Partner has history of Genital Herpes: No, Rash or Viral illness since last mentrual period: No, Prior GBS-Infected child: No, History of STD: No (more content not included)... Normal [facility] Urine Drug Screen (VISTA)on 05-24-2024 AMPHETAMINES Negative Normal <1000 ng/mL [facility] Comment on above: Order Comment: UNK Performed By: #### L 505.5000, M100.2200, L7000.1800 ####[facility] [address] [place] [address] BARBITIURATES Negative Normal < 200 ng/mL [facility] Comment on above: Order Comment: UNK Performed By: #### L 505.5000, M100.2200, L7000.1800 ####[facility] [address] [place] [address] BENZODIAZIPINE Negative Normal < 200 ng/mL [facility] Comment on above: Order Comment: UNK Performed By: #### L 505.5000, M100.2200, L7000.1800 ####[facility] [address] [place] [address] COCAINE Negative Normal < 300 ng/mL [facility] Comment on above: Order Comment: UNK Performed By: #### L 505.5000, M100.2200, L7000.1800 ####[facility] [address] [place] [address] ECSTACY Negative Normal < 500 ng/mL [facility] Comment on above: Order Comment: UNK Performed By: #### L 505.5000, M100.2200, L7000.1800 ####[facility] [address] [place] [address] METHADONE Negative Normal < 300 ng/mL [facility] Comment on above: Order Comment: UNK Performed By: #### L 505.5000, M100.2200, L7000.1800 ####[facility] [address] [place], [address] OPIATES Negative Normal < 300 ng/mL [facility] Comment on above: Order Comment: UNK Performed By: #### L 505.5000, M100.2200, L7000.1800 ####[facility] [address] [place], [address] PCP Negative Normal < 25 ng/mL [facility] Comment on above: Order Comment: UNK Performed By: #### L 505.5000, M100.2200, L7000.1800 ####[facility] [address] [place], [address] THC Negative Normal < 50 ng/mL [facility] Comment on above: Order Comment: UNK Performed By: #### L 505.5000, M100.2200, L7000.1800 ####[facility] [address] [place], [address] VISTA UDS PH 4 Normal [facility] Comment on above: Order Comment: UNK Performed By: #### L 505.5000, M100.2200, L7000.1800 ####[facility] [address] [place], [address] hCG Titer Quant., Serumon HCG QUANT. 56717 mIU/mL High 1-3 [facility] Comment on above: Result Comment: hCG levels with Gestational Age Gestational Age hCG mIU/mL (IU/L) 0.2 - 1 week 5 - 50 1-2 weeks 50 - 500 2-3 weeks 100 - 5000 3-4 weeks 500 - 92731 4-5 weeks 1000 - 91339 5-6 weeks 97274 - 100,000 6-8 weeks 78914 - 200,000 2-3 months 04855 - 100,000 Performed By: #### L 700.8000 #### [facility] [address] [place], [address] hCG Titer Quant., Serumon HCG QUANT. 6923 mIU/mL High 1-3 [facility] Comment on above: Result Comment: hCG levels with Gestational Age Gestational Age hCG mIU/mL (IU/L) 0.2 - 1 week 5 - 50 1-2 weeks 50 - 500 2-3 weeks 100 - 5000 3-4 weeks 500 - 91513 4-5 weeks 1000 - 57909 5-6 weeks 93531 - 100,000 6-8 weeks 60305 - 200,000 2-3 months 37480 - 100,000 Performed By: #### L 700.8000 ####[facility] [address] [facility] [place], [address] Transvaginal w/Preg USon Transvaginal w/Preg US [facility] Imaging Services [address] [facility] [place] [address] Transvaginal w/Preg US MR#: [id number] Acct: [id number] Name: ANGELA SALES Rep #: [id number] : 1985 F 38 From: Ishmael barrientos MD PCP: Care Physician,No Primary Status: [facility] CLI Study: Transvaginal w/Preg US Date of Exam: 05/10/24 Exam# [id number] Ordering Dr: Zulema Ramirez DO [id number] STUDY: FIRST TRIMESTER OBSTETRICAL ULTRASOUND REASON FOR EXAM: Female, 38 years old spotting in early LMP: March 28, 2024. TECHNIQUE: Transvaginal TECHNICAL QUALITY: Adequate. PRIOR ULTRASOUND: None. FINDINGS: There is visualization of a single gestational sac in a normal intrauterine position. The mean sac diameter (MSD) measures 9 mm, indicating an estimated gestational age (EGA) of 5 weeks, 5 days. The gestational sac shape is within normal limits. There is a visualized yolk sac. The yolk sac measures 2.7 mm. The placenta is non-visualized. There is no demonstrated embryo ( pole). The estimated gestation age (EGA) by LMP is 6 weeks, 1 days. The estimated date of delivery (NAIDA) by LMP is January 02, 2025. The estimated gestation age (EGA) by US is 5 weeks, 5 days. The estimated date of delivery (NAIDA) by US is January 05, 2025. The uterus measures 8.7 cm x 5.9 cm x 4.2 cm. There is a 2.7 cm x 2.8 cm x 2.3 cm uterine fibroid. The cervix is closed. The patient is status post right nephrectomy. The left ovary measures 4.7 cm x 3.8 cm x 3.1 cm. There is a 1.9 cm x 1.8 cm x 1.6 cm left paraovarian cyst. There is no visualized left adnexal mass or complex lesion. There is no fluid in the cul de sac. US/Transvaginal w/Preg US IMPRESSION: Intrauterine gestational sac corresponding to 5 weeks and 5 days. No embryonic cardiac activity is noted at this time. Uterine fibroid. Left paraovarian cyst. Electronically Signed: Ishmael Montoya MD at 14:03 EST Reading Location ID and State: [address] [place] [address] , Service support , CC: Dr. Zulema Ramirez, DO; No Primary Care Physician Environmental Air Specialist: Signed [facility] Type AND Screenon 05-10-2024 Ab SCREEN GEL Negative [facility] Comment on above: Order Comment: PN Performed By: #### L 700.8000, BTS #### [facility] [address] [place], [place], [id number] ABO and Rh group Nom (Bld) Blood group A Rh(D) negative [facility] Comment on above: Order Comment: PN Performed By: #### L 700.8000, BTS #### [facility] [address] [place], [address] hCG Titer Quant., Serumon HCG QUANT. 4528 mIU/mL High 1-3 [facility] Comment on above: Result Comment: hCG levels with Gestational Age Gestational Age hCG mIU/mL (IU/L) 0.2 - 1 week 5 - 50 1-2 weeks 50 - 500 2-3 weeks 100 - 5000 3-4 weeks 500 - 49727 4-5 weeks 1000 - 35599 5-6 weeks 00189 - 100,000 6-8 weeks 39970 - 200,000 2-3 months 45643 - 100,000 Performed By: #### L 700.8000, BTS #### [facility] [address] [place], [address] XR CHEST AP/PA AND LATon XR CHEST AP/PA AND LAT EXAMINATION: XR CHEST AP/PA AND LAT 08/10/2023 12:33 pm HISTORY: ORDERING SYSTEM PROVIDED HISTORY: pain, TECHNOLOGIST PROVIDED HISTORY: Illness/Other Reason for exam: chest pain, numbness in arms Cancer History: u Surgery, RadiationHistory: u Encounter Type: Initial Additional signs and symptoms: current smoker ORDERING SYSTEM PROVIDED DIAGNOSIS CODES: COMPARISON: AP and lateral chest 08/08/2020. FINDINGS: The heart appears within normal limits in size. Since the prior study there has been development of patchy opacification involving the medial aspect of the lung bases bilaterally and there is also patchy opacification projecting over the anterior aspect of the heart on the lateral view. No pneumothorax, pleural effusion or evidence of congestive heart failure is seen. IMPRESSION: Since the prior study of 08/08/2020 there has been development of patchy opacification involving the lung bases bilaterally which is concerning for multifocal pneumonia or less likely atelectasis among other etiologies. A follow-up PA and lateral chest examination in 4-6 weeks is recommended to document resolution of these findings. Workstation ID: [id number] Dictated by: QUENTIN RODRÍGUEZ on MonAug 10, 2023 12:38:28 PM EST Transcribed by: QUENTIN RODRÍGUEZ on MonAug 10, 2023 12:38:28 PM EST Finalized by: QUENTIN RODRÍGUEZ on MonAug 10, 2023 12:38:28 PM EST Normal [facility] Comment on above: Order Comment: Injur y/Trauma or Illness?:Illness/Other How long have you had these symptoms (acute/chronic)?:Acute Reason for exam?:vaginal bleeding; incomplete ab History of cancer?:u Surgeries, chemotherapy, or radiation?:rt oophorectomy Type of Exam?:Initial Additional signs and symptoms?:none No Panel Informationon 06-05 [facility] CNOVon 07-16-2021 CNOV Office Visit (FAMPWS ) ANGELA SALES ([id number]) 1985 F Date Time Provider Department 07/16/21 1:40 PM STEPHANIE STOCKTON During your visit today, we recorded the following information about you: Temperature Pulse Respiration Blood pressure 99.9 degrees 101/minute 18/minute 126/72 Weight 127.4 kg Stephanie Stockton APRN.CNP 07/16/2021 3:32 PM Signed 07/16/2021 Patient presents with: Covid Follow Up: Congested croupy cough; SUBJECTIVE: This is a 35 year old that is here today for Above Complaints.. Reports COVID-19 beginning of June. Had some sinus issues, dizziness, fevers, and chills. Reports felt better after ten days. Started yesterday afternoon with sore throat, chest congestion, occasionally productive cough. Reports some soreness in throat from swallowing. Also admits to mild SOB when climbing stairs. Has used some OTC cough/cold preparations with mild relief. Denies fevers, chills, difficulty swallowing, headache, sinus pressure, nasal congestion, rhinorrhea, loss of taste or smell, dyspnea, chest pain, nausea, vomiting or diarrhea PAST MEDICAL HISTORY Diagnosis Date - Absence of menstruation - Adjustment disorder with depressed mood 01/22/2007 - Anxiety 05/07/2010 - Migraine with aura - PCOS (polycystic ovarian syndrome) ALLERGIES Asthma Med [Other] and Dena Topping [Other] MEDICATIONS Current Outpatient Medications Medication Sig - oxyCODONE-acetaminoph en (PERCOCET) 5-325 mg tablet Take 1 tablet by mouth every 8 hours as needed for pain. (Patient not taking: Reported on 07/16/2021) No current facility-administered medications for this visit. Medications and allergies reviewed by this provider. SOCIAL HISTORY Social History Tobacco Use - Smoking status: Current Every Day Smoker Packs/day: 0.50 Years: 10.00 Pack years: 5.00 Types: Cigarettes - Smokeless tobacco: Never Used Substance Use Topics - Alcohol use: Yes Comment: Occasionally - Drug use: No REVIEW OF SYSTEMS All other reviewed and negative other than HPI. OBJECTIVE: BP 126/72 Pulse 101 Temp 37.7 ?C (99.9 ?F) Resp 18 Wt 127.4 kg (280 lb 12.8 oz) LMP 11/17/2020 (Approximate) SpO2 97% BMI 48.20 kg/m? . Vital signs reviewed by this provider. APPEARANCE Well appearing, alert, in no acute distress, well-hydrated, well nourished. EYES PERRLA, conjunctiva and sclera normal. EARS External ears normal, canals clear THROATno erythema and tonsillar hypertrophy, 2+. No exudates NECK Supple, no adenopathy; thyroid symmetric, normal size, no bruits HEART RRR with normal S1 and S2, no murmurs, no gallops, no JVD appreciated LUNG clear to auscultation. No wheezes, rhonchi or rales. Able to speak in full sentence without difficulty SKIN Skin color, texture, turgor normal, no suspicious rashes or lesions to exposed skin COVID-19 VACCINE(1) Never done DTAP,TDAP,TD(6 - Tdap) due on 09/13/1998 HEPATITIS C SCREENING Never done HIV SCREENING Never done ONE PNEUMOVAX PRIOR TO AGE 65 Never done INFLUENZA(1) Never done DEPRESSION SCREENING due on 08/31/2021 PAP TESTING due on 04/06/2023 HPV TESTING due on 04/06/2023 MENINGOCOCCAL CONJUGATE Aged Out ASSESSMENT/PLAN: 1. Sore throat - ICD9: 462, ICD10: J02.9 (primary diagnosis) - suspect viral - Discussed supportive care treatment with fluids, rest and analgesia. - The patient may also use OTC cough and cold meds as needed, warm salt water gargles, throat lozenges and/or OTC throat spray as needed and Cepacol lozenges. - The patient should follow up in 3-5 days if symptoms persist or worsen - Call back if drooling, increased temperature, symptoms of dehydration and/or still sick in one week 2. Cough - ICD9: 786.2, ICD10: R05.9 - plan as #1 Stephanie Stockton APRN.[employer] Prescription instructions reviewed with patient as applicable. Patient advised if symptoms do not improve or if symptoms worsen sooner, to contact their primary care physician. Potential red flag symptoms discussed with the patient. Reviewed appropriate action plan to take if red flag symptoms occur. Patient agreeable to treatment plan. Referring Provider: SELF [[id number]] Allergies As of Date: 07/16/2021 Noted Allergy Reaction asthma med [Other] 02/16/2005 Comments: caused hallucinations dena topping [Other] 02/16/2005 4 - Hives Date Reviewed: 07/16/2021 Reviewed by: Dea Pickens LPN - Fully Assessed Reason for Visit: Covid Follow Up [3281] Cmt: Congested croupy cough; Primary Visit Diagnosis:Sore throat [J02.9] Other Visit Diagnosis:Cough [R05.9] Prescriptions as of 07/16/2021 - oxyCODONE-acetaminoph en (PERCOCET) 5-325 mg tablet Take 1 tablet by mouth every 8 hours as needed for pain. Problem List As Of Date 07/16/2021 Noted Resolved ADJUSTMENT DISORDER WITH DEPRESSED MOOD [F43.21]01/22/2007 Anxiety [F41.9] 05/07/2010 Obesity, Class III, BM (more content not included)... [facility] KATLYNN [facility] (GENABBY) ANGELA SALES ([id number]) 1985 F Date Time Provider Department 05/18/21 MAX CHINO During your visit today, we recorded the following information about you: Ana Maria Duffy RN 05/18/2021 8:58 AM Signed 05/11/21 Umbilical hernia repair Patient was unable to work yesterday due to post surgical pain. She is working today but needs a letter excusing her from work yesterday, 05/17/2021 Letter completed, signed and faxed to Patient's employer at [phone] Fax confirmation received Paperwork sent to scanning Allergies As of Date: 05/18/2021 Noted Allergy Reaction asthma med [Other] 02/16/2005 Comments: caused hallucinations dena topping [Other] 02/16/2005 4 - Hives Date Reviewed: 05/11/2021 Reviewed by: Mecca Garvin RN - Fully Assessed Reason for Visit: Letter [264] Prescriptions as of 05/18/2021 - oxyCODONE-acetaminoph en (PERCOCET) 5-325 mg tablet Take 1 tablet by mouth every 8 hours as needed for pain. Problem List As Of Date 05/18/2021 Noted Resolved ADJUSTMENT DISORDER WITH DEPRESSED MOOD [F43.21]01/22/2007 Anxiety [F41.9] 05/07/2010 Obesity, Class III, BMI 40-49.9 (morbid obesity*10/25/2010 PCOS (polycystic ovarian syndrome) [E28.2] 07/12/2016 Palpitations [R00.2] 08/31/2020 Letter Text Encounter Status:Closed by ANA MARIA DUFFY RN on 05/18/21 Normal [facility] ANES POSTPROC EVALon 021 ANES POSTPROC EVAL HNO ID: [id number] Author: Tylor Palacios MD Service: Anesthesiology Author Type: Anesthesiologist Type: Anesthesia Postprocedure Evaluation Filed: 05/11/2021 11:19 AM Note Text: POST ANESTHESIA EVALUATION NOTE : 1985 Procedure Summary Date: 05/11/21 Room / Location: [place] [address] / [place] Anesthesia Start: 732 Anesthesia Stop: 913 Procedure: HERNIORRHAPHY UMBILICAL ADULT (N/A Umbilicus) Diagnosis: Umbilical hernia without obstruction or gangrene Surgeons: Max Chino MD Responsible Provider: Tylor Palacios MD Anesthesia Type: general ASA Status: 4 Anesthesia Type: general Last vitals Vitals Value Taken Time BP 92/55 05/11/21 1000 Temp 36.5 ?C (97.7 ?F) 05/11/21 0913 Pulse 72 05/11/21 1001 Resp 26 05/11/21 1001 SpO2 94 % 05/11/21 1001 Vitals shown include unvalidated device data. Post Anesthesia Patient Status Patient Evaluation: bedside. Anticipated Disposition: phase 2 then home. Neurological Status: aware and responsive. Pulmonary Status: breathing comfortably on room air Airway Control: returned to baseline unsupported. Cardiovascular Status: stable. Pain Management: clinically adequate Postoperative Hydration: acceptable. Intraoperative Events: no significant anesthesia events Post Operative Nausea/Vomiting Status: no significant post operative nausea or vomiting Anesthetic Observations: Recommendation: continue current plan of care. Anesthesia Observations No Documentation SIGNATURE: Tylro Palacios MD PATIENT NAME: Angela Sales DATE: May 11, 2021 TIME: 11:19 AM CSN: [id number] [facility] ANES PRE-OPon 05-11-2021 ANES PRE-OP HNO ID: [id number] Author: Tylor Palacios MD Service: Anesthesiology Author Type: Anesthesiologist Type: Anesthesia Preprocedure Evaluation Filed: 05/11/2021 6:52 AM Note Text: ANESTHESIOLOGY DAY OF SURGERY NOTE : 1985 Procedure(s) (LRB): HERNIORRHAPHY UMBILICAL ADULT (N/A) Surgeon(s): Max Chino MD Estimated body mass index is 48.41 kg/m? as calculated from the following: Height as of 05/10/21: 162.6 cm (5' 4). Weight as of 05/10/21: 127.9 kg (282 lb). Most recent hematocrit and potassium results: No results found for this basename: HCT,HEMATOCRIT,K,POTA SSIUM Relevant Problems No relevant active problems I - PHYSICAL EVALUATION AIRWAY Patient intubated: No. Tracheostomy tube not present Mallampati: III. TM distance: <3 FB. Neck ROM: full ROM without neurological symptoms. Mouth opening: non-adequate. Short neck: yes. Thick neck: yes DENTAL Normal dental observations. Dental findings: teeth intact. Additional exam findings: no II - ANESTHESIA PLAN ASA Score: 4 Anesthetic Plan: general Airway type: LMA The patient is a current smoker. NPO Status: adequate Monitoring plan: standard ASA. Postoperative analgesic plan: parenteral or oral opioids. Anesthetic Risks, Benefits, Alternatives, Personnel Discussed. Consent obtained from: patient.Patient / Surrogate agrees to blood products: blood products not planned DNR status not reviewed with patient and/or family prior to surgery. Significant changes in the patient condition since the History and Physical, not otherwise documented in primary service progress note: no. Potential Anesthesia issues that may suggest increased risk of complications or contraindication to planned procedure: potential difficult intubation and potential difficult IV access. Vitals Value Taken Time BP 131/66 05/11/21636 Pulse Resp 18 05/11/21636 Temp 36.3 ?C (97.3 ?F) 05/11/21636 SpO2 98 % 05/11/21636 Facility-Administered Medications as of 05/11/2021 Medication Dose Route Frequency - [COMPLETED] acetaminophen 650 mg tab(s) (TYLENOL) 650 mg ORAL Pre-Op Once - [COMPLETED] promethazine 12.5 mg tab(s) (PHENERGAN) 12.5 mg ORAL Pre-Op Once - scopolamine 1 mg over 3 days 1 Patch (TRANSDERM-SCOP) 1 Patch TRANSDERMAL ONCE - lidocaine 10 mg/mL (1 %) 1-2 mg injection (XYLOCAINE) 0.1-0.2 mL INTRADERMAL PRN - lactated ringers iv infusion 5-30 mL/hr INTRAVENOUS CONTINUOUS No current outpatient medications on file as of 05/11/2021. I have interviewed and examined the patient. I have reviewed the medical record and/or the pre-anesthesia evaluation, pertinent labs, and test results. This contains updated information obtained within 48 hours of Surgery/Procedure. SIGNATURE: Tylor Palacios MD PATIENT NAME: Angela Sales DATE: May 11, 2021 TIME: 6:51 AM CSN: [id number] [facility] BRIEF OP NOTon 05-11-2021 BRIEF OP NOT HNO ID: [id number] Author: Max Chino MD Service: General Surgery Author Type: Physician Type: Brief Op Note Filed: 05/11/2021 9:18 AM Note Text: BRIEF OPERATIVE / PROCEDURE NOTE LOG ID: [id number] SURGERY/PROCEDURE DATE: 05/11/2021 INCISION/PROCEDURE START TIME: 7:59 AM INCISION CLOSE/PROCEDURE END TIME: 9:04 AM SURGEON(S)/PROCEDURAL IST(S) AND SHOPPER MARKETING MANAGER(S): Surgeon(s) and Role: * Max Chino MD - Primary Nurse Practitioner: Jihan Jacobsen APRN.KATLYN SURGERY/PROCEDURE(S): umbilical hernia repair with mesh ANESTHESIA: General FINDINGS: 3 cm defect ESTIMATED BLOOD LOSS: 10 mls SPECIMENS: None COMPLICATIONS: None PRE-OP/PRE-PROCEDURE DIAGNOSIS: umbilical hernia POST-OP/POST-PROCEDUR E DIAGNOSIS: Same as Preop SIGNATURE: Max Chino MD PATIENT NAME: Angela Sales DATE: May 11, 2021 TIME: 9:18 AM [facility] HISTORY PHYSICALon HISTORY PHYSICAL HNO ID: [id number] Author: Max Chino MD Service: General Surgery Author Type: Physician Type: HANDP Filed: 05/11/2021 7:35 AM Note Text: UPDATED HISTORY AND PHYSICAL EXAMINATION SERVICE DATE: 05/11/2021 SERVICE TIME: 7:27 AM PHYSICAL EXAM MUST BE COMPLETED ON ADMISSION The History and Physical (completed in the past 30 days) has been reviewed and the patient has been examined. The contents accurately reflect the patient's condition with the following additions or revisions since the HANDP was completed. Examination indicates the following changes Heart : RRR Lungs: CTA B This HANDP can be found in the Electronic Medical Record. SIGNATURE: Max Chino MD PATIENT NAME: Angela Sales DATE: May 11, 2021 TIME: 7:27 AM [facility] NURSING PROGon 05-11-2021 NURSING PROG HNO ID: [id number] Author: Malathi Pepper RN Service: Nursing Author Type: Registered Nurse Type: Nursing Progress Note Filed: 05/11/2021 10:40 AM Note Text: Nursing Progress Note Patient Name: Angela Sales Patient Location: [place] [facility] [facility] 1010 pt relates pain 4-5, offered pain pill, pt not wanting to wait after taking pain pill, binder applied and pt has relief of pain. called to bedside This note was completed by: Malathi Pepper 1030 up to bathroom, gait steady, + void. Asking to go home, D/C instructions given. Normal [facility] OPERATIVE NOon 05-11-2021 OPERATIVE NO HNO ID: [id number] Author: Max Chino MD Service: General Surgery Author Type: Physician Type: Operative Report Filed: 05/12/2021 2:56 PM Note Text: [facility] - Operative Report ANGELA SALES : 1985 AGE: 35. SEX: F PATIENT TYPE: [place] [facility] [place] [place] [facility] LOCATION: [facility] ATTENDING PHYSICIAN: Max Chino M.D. CSN NUMBER: [id number] DATE OF SURGERY/PROCEDURE: 05/11/2021 INCISION/PROCEDURE START TIME: 7:59 a.m. INCISION CLOSE/PROCEDURE END TIME: 9:04 a.m. PREOPERATIVE DIAGNOSIS: Umbilical hernia. POSTOPERATIVE DIAGNOSIS: Umbilical hernia. SURGEON: Max Chino M.D. SHOPPER MARKETING MANAGER: Jihan Jacobsen CNP No resident was able to assist with the surgery. A nurse practitioner was utilized as 1st state tested nursing assistant. Her role included skin retraction, assistance with incision closure. SURGERY/PROCEDURE: Umbilical hernia repair with mesh. ANESTHESIA: General. FINDINGS: 3 cm fascial defect. ESTIMATED BLOOD LOSS: About 10 mL. SPECIMENS: None. COMPLICATIONS: None. PATIENT HISTORY: Patient is a 35-year-old female recently seen through the office with umbilical hernia. This was causing her increasing discomfort and she wished to have this repaired. I offered her the option of surgery. We discussed details of the planned procedure and she wished to proceed. She was brought to the operating room today following informed consent. Antibiotics were given. Time-out was performed. She was placed supine on the operative table with arms outstretched on armboards. General anesthesia was induced. Once adequately sedated, the abdomen was then prepped and draped in usual sterile manner. A curvilinear incision was made around the superior aspect of the umbilicus. Bovie electrocautery was then used to dissect down through subcutaneous tissues down to the level of the fascia. The skin of the umbilicus was then detached from the underlying hernia sac. The hernia sac was then excised. This was actually fairly sizable hernia, defect size was about 3 or so cm. The hernia sac was excised. The fascial edges were cleared. Due to the size of the fascial defect, the size of the patient's abdomen and the quality of the fascia, we decided that a mesh repair would be beneficial to reduce risk of recurrence and so a 6.6 cm mesh was selected. This was inserted in a subfascial layer. The edges of the mesh ring were tacked to the fascia in a segment and 8 sutures. This mesh laid very nicely. The wound was copiously irrigated. The skin of the umbilicus was then reattached to the underlying fascia using 3-0 Vicryl. 3-0 Vicryl was used to reapproximate the subdermal layer and then 5-0 Vicryl was run on the skin. Skin glue was applied as dressing. A 2 x 2 and a Silverlon dressing were applied along with skin glue. She was awakened from anesthesia and taken to the PACU in good condition. Max Chino M.D. SAW:[id number] /[id number] Normal [facility] HISTORY PHYSICALon HISTORY PHYSICAL HNO ID: [id number] Author: Lynne Santamaria PA-C Service: ? Author Type: Physician Spread Cutter Type: HANDP Filed: 05/10/2021 3:04 PM Note Text: PREANESTHESIA CONSULT CLINIC TELEHEALTH VISIT Patient has been identified by name and date of : Yes This is a virtual visit using [employer] video visit. It require patient-provider interaction for the medical decision making as documented below. Reason for contact: PACC visit Accompanied by: Self Scheduled Surgery: HERNIORRHAPHY UMBILICAL ADULT Subjective CHIEF COMPLAINT: Umbilical hernia HPI: This is a 35 year old female who presents for preop evaluation. Patient has had umbilical hernia for the past few months. She states she has discomfort in the area. She denies changes in bowel habits and blood in her stool. She denies fever, chills, chest pain and SOB. ACTIVE PROBLEM LIST Adjustment Disorder With Depressed Mood Anxiety Obesity, Class III, BMI 40-49.9 (morbid obesity) (HCC) Pcos (Polycystic Ovarian Syndrome) Palpitations PAST MEDICAL HISTORY Diagnosis Date - Absence of menstruation - Adjustment disorder with depressed mood 01/22/2007 - Anxiety 05/07/2010 - Migraine with aura - PCOS (polycystic ovarian syndrome) PAST SURGICAL HISTORY Procedure Laterality Date - Dermoid Cyst Removed 07/30/2009 FAMILY HISTORY Problem Relation Age of Onset - Diabetes Father - other (depression) Mother - Breast Cancer Maternal Grandmother - Anesthesia Problems No Family History Social History Tobacco Use - Smoking status: Current Every Day Smoker Packs/day: 0.50 Years: 10.00 Pack years: 5.00 Types: Cigarettes - Smokeless tobacco: Never Used Substance Use Topics - Alcohol use: Yes Comment: Occasionally - Drug use: No ALLERGIES Allergen Reactions - Asthma Med [Other] caused hallucinations - Gilbert Topping [Oth* Hives MEDICATIONS: No current outpatient medications on file. No current facility-administered medications for this visit. COVID VACCINATION STATUS: Not vaccinated REVIEW OF SYSTEMS: Pain Assessment: General: No weight loss, malaise or fevers. Neuro: No history of TIA's, stroke, PILE HEADER tumor, impaired sensorium, hemiplegia, paraplegia or quadraplegia. No neurological symptoms or problems. Respiratory: Negative for Asthma, COPD, Current cough, Dyspnea, Pneumonia within 6 weeks (date) +ANABELLE - uses CPAP, +smoker -0.5ppd, ~5 pack year history Cardiovascular: No history of HTN requiring medication, no history of angina, CHF, OR, cardiac surgery or stents. Denies rest pain, gangrene or revascularization/amp utation for PVD. No history of cardiovascular symptoms or problems. GI: No history of GI symptoms or problems. No history of esophageal varices, recent ascites, or ETOH greater than 2 drinks per day. : No history of dysuria, frequency or incontinence,, stones or chronic kidney disease BENCH MOVER: Negative for abnormal vaginal bleeding, abnormal vaginal discharge. : Denies, Patient's last menstrual period was 11/17/2020 (approximate). Endocrine: No history of diabetes. Has not taken steroids within the past 30 days. No history of endocrinological symptoms or problems. Hematology: No history of bleeding or clotting disorder. Pt is not taking anti-coagulation or platelet medications. No history of hematological symptoms or problems. Oncology: No history of CA metastasis, chemo within 30 days, or radiotherapy within 90 days. Has not lost 10% of body wt in 6 months. No history of oncological symptoms or problems. Psych: Anxiety Musculoskeletal: Negative for joint pain or swelling, back pain or muscle pain. Skin: Negative for lesions, rash and itching. Objective PHYSICAL EXAM: Ht 5' 4 (1.63m) Wt 282 lb (127.9kg) LMP 11/17/2020 BMI 48.38 kg/(m2). VIDEO EXAM: (if completed, performed via video enabled technology) GENERAL: alert and appropriate, in no distress, well-hydrated, well nourished, happy, smiling, interactive and overweight SKIN: no rash noted HEAD: normocephalic, no abnormality or lesion noted EYES: no injection OROPHARYNX: moist mucus membranes NECK: full ROM, no cervical LNs noted RESPIRATORY: breathing non-labored CHEST: equal chest rise with normal respiratory effort HEART: Well perfused, no cyanosis noted NEUROLOGIC: no obvious deficit Diagnostic tests reviewed for today's visit: No results found for: HBA1C Most recent labs in CE reviewed Most recent EKG 05/15/21 Diagnosis: NORMAL SINUS RHYTHM LOW VOLTAGE QRS, CONSIDER PULMONARY DISEASE, PERICARDIAL EFFUSION, OR NORMAL VARIANT BORDERLINE ECG Confirmed by RICARDO JONES M.D. ([id number]) on 05/15/2020 9:34:21 AM ? Impression/Recommenda tions ASSESSMENT: Obesity, Class III, BMI 40-49.9 (morbid obesity) (HCC) -BMI 48.38 METS: Climb a flight of stairs or walk up a hill (5.50 METs) Patient denies any chest pain or undue shortness of breath with the above physical activity. (more content not included)... Normal [facility] Giovanny 05-07-2021 ADY Telephone ([employer] ([employer]a [employer])) ANGELA SALES ([id number]) 1985 F Date Time Provider Department 05/07/21 MAX CHINO During your visit today, we recorded the following information about you: Ana Maria Duffy RN 05/07/2021 3:20 PM Signed This nurse reached patient by phone re: Pre-anesthesia appointment. 05/11/21 Umbilical hernia repair is scheduled with Dr Chino Patient asks if 05/11/21 is the same date for pre-anesthesia Patient will answer the phone in the future. Please call to confirm the date and time of pre-anesthesia Allergies As of Date: 05/07/2021 Noted Allergy Reaction asthma med [Other] 02/16/2005 Comments: caused hallucinations dena topping [Other] 02/16/2005 4 - Hives Date Reviewed: 04/08/2021 Reviewed by: Max Chino MD - Fully Assessed Reason for Visit: Appointment [186] Prescriptions as of 05/17/2021 - oxyCODONE-acetaminoph en (PERCOCET) 5-325 mg tablet Take 1 tablet by mouth every 8 hours as needed for pain. Problem List As Of Date 05/07/2021 Noted Resolved ADJUSTMENT DISORDER WITH DEPRESSED MOOD [F43.21]01/22/2007 Anxiety [F41.9] 05/07/2010 Obesity, Class III, BMI 40-49.9 (morbid obesity*10/25/2010 PCOS (polycystic ovarian syndrome) [E28.2] 07/12/2016 Palpitations [R00.2] 08/31/2020 Encounter Status:Closed by ANA MARIA DUFFY RN on 05/17/21 [facility] CNOVon 04-08-2021 CNOV Office Visit (GENSBR ) ANGELA SALES ([id number]) 1985 F Date Time Provider Department 04/08/21 2:30 PM MAX CHINO During your visit today, we recorded the following information about you: Weight Height 127.5 kg 1.626 m Max Chino MD 04/15/2021 12:56 PM Addendum PROGRESS NOTES PATIENT NAME: Angela aSles Assessment Consultation requested by Vi Jalloh PA-C for an opinion regarding umbilical hernia . My final recommendations will be communicated back to the requesting physician by way of shared Medical record or letter to requesting physician via [place] mail. ASSESSMENT AND PLAN The patient is a 35-year-old female who is being seen today for an umbilical hernia. I recommended umbilical hernia repair surgery. We discussed the details of the planned procedure including risk benefits and alternatives and she wishes to proceed. This will be scheduled in a timely manner. SUBJECTIVE CHIEF COMPLAINT: Patient presents with: Hernia: umbilical INTERVAL HISTORY OF PRESENT ILLNESS: The patient is a 35-year-old female who is being seen today for an umbilical hernia. She states she has had this for few months. This is causing her into increasing discomfort. She presents today to discuss having this repaired. GENERAL:No weight loss, malaise or fevers., See HPI HEENT:Negative for frequent or significant headaches, Wear glasses or contacts, No changes in hearing or vision, no nose bleeds or other nasal problems CARDIOVASCULAR: Negative for chest pain, Negative for leg swelling, Negative for palpitaions SKIN:Negative for lesions, rash, and itching. RESPIRATORY: Negative for cough, wheezing or shortness of breath. GASTROINTESTINAL: Negative for abdominal discomfort, blood in stools or black stools or change in bowel habits GENITOURINARY: No history of dysuria, frequency or incontinence. ENDOCRINE: None MUSCULOSKELETAL: Negative for joint pain or swelling, back pain or muscle pain. NEUROLOGIC:Negative for focal numbness or weakness, headaches and dizziness or syncope. HEMATOLOGIC/LYMPHATIC /IMMUNOLOGIC:Negative for prolonged bleeding, bruising easily or swollen nodes. I have reviewed and agree with the Review of Systems. Max Chino MD HISTORIES: PAST MEDICAL HISTORY Diagnosis Date - Absence of menstruation - Adjustment disorder with depressed mood 01/22/2007 - Anxiety 05/07/2010 - Migraine with aura - PCOS (polycystic ovarian syndrome) PAST SURGICAL HISTORY Procedure Laterality Date - Dermoid Cyst Removed 07/30/2009 - HSG 12/28/2016 Patient Left Fallopian tube- right surgically absent ALLERGIES: Asthma Med [Other] and Gilbert Topping [Other] MEDICATIONS: Current Outpatient Medications Medication Sig - metoprolol succinate ER (TOPROL XL) 25 mg 24 hr tablet Take 1 tablet by mouth once daily. (Patient not taking: Reported on 03/24/2021 ) No current facility-administered medications for this visit. FAMILY HISTORY Problem Relation Age of Onset - other (depression) Mother - Diabetes Father - Breast Cancer Maternal Grandmother Social History Tobacco Use - Smoking status: Current Every Day Smoker Types: Cigarettes Last attempt to quit: 08/17/2010 Years since quittin.6 - Smokeless tobacco: Never Used - Tobacco comment: 1 pack every month or 2 months Substance Use Topics - Alcohol use: Yes Comment: Occasionally - Drug use: No OBJECTIVE PHYSICAL EXAM: [facility] 12/18/2019 GENERAL: Alert, no distress, cooperative EYES: PERRLA, EOMI LUNGS: Lungs clear to auscultation, Good diaphragmatic excursion CARDIAC: Normal S1 and S2; no rubs, murmurs, or gallops ABDOMEN: Abdomen soft, non-tender, BS normal, No masses or organomegaly DATA: Diagnostic tests reviewed for today's visit: Most recent labs and imaging results. Max Chino MD Referring Provider: VI JALLOH [[id number]] Allergies As of Date: 04/08/2021 Noted Allergy Reaction asthma med [Other] 02/16/2005 Comments: caused hallucinations dena topping [Other] 02/16/2005 4 - Hives Date Reviewed: 04/08/2021 Reviewed by: Max Chino MD - Fully Assessed Reason for Visit: Hernia [1598] Cmt: umbilical Visit Diagnosis:Umbilical hernia without obstruction or gangrene [K42.9] Order(s):CONSULT TO GENERAL SURGERY [9011] Order #: [id number]: 1 Prescriptions as of 04/15/2021 - metoprolol succinate ER (TOPROL XL) 25 mg 24 hr tablet Take 1 tablet by mouth once daily. Problem List As Of Date 04/08/2021 Noted Resolved ADJUSTMENT DISORDER WITH DEPRESSED MOOD [F43.21]01/22/2007 Anxiety [F41.9] 05/07/2010 Obesity, Class III, BMI 40-49.9 (morbid obesity*10/25/2010 PCOS (polycystic ovarian syndrome) [E28.2] 07/12/2016 Palpitations [R00.2] 08/31/2020 Disposition: Return in about 4 weeks (around 05/06/2021). Follow-up and Disposition History Record (more content not included)... Normal [facility] CNOVon 03-24-2021 CNOV Office Visit (FAMPWS ) ANGELA SALES ([id number]) 1985 F Date Time Provider Department 03/24/21 12:00 PM [facility] During your visit today, we recorded the following information about you: Temperature Pulse Respiration Blood pressure 99.2 degrees 96/minute 16/minute 118/80 Weight 127 kg Vi Jalloh PA-C 03/24/2021 12:25 PM Signed 03/24/2021 Patient presents with: Pain: hernia SUBJECTIVE: This is a 35 year old that is here today for Above Complaints.. Patient states that she has had an undiagnosed abdominal hernia for the past 2 years. Never brought this up with her previous doctor as it never caused any pain. Today, she bent over to tie her shoes and when she stood up, she coughed and felt a sharp pain in this area that took about an hour to subside enough that she felt like she could move again. She is still having some nausea. But pain has improved quite a bit. States certain movements is still painful, but not to the same extent. PAST MEDICAL HISTORY Diagnosis Date - Absence of menstruation - Adjustment disorder with depressed mood 01/22/2007 - Anxiety 05/07/2010 - Migraine with aura - PCOS (polycystic ovarian syndrome) ALLERGIES Asthma Med [Other] and Dena Topping [Other] MEDICATIONS Current Outpatient Medications Medication Sig - metoprolol succinate ER (TOPROL XL) 25 mg 24 hr tablet Take 1 tablet by mouth once daily. (Patient not taking: Reported on 03/24/2021 ) No current facility-administered medications for this visit. SOCIAL HISTORY Social History Tobacco Use - Smoking status: Current Every Day Smoker Types: Cigarettes Last attempt to quit: 08/17/2010 Years since quittin.6 - Smokeless tobacco: Never Used - Tobacco comment: 1 pack every month or 2 months Substance Use Topics - Alcohol use: Yes Comment: Occasionally - Drug use: No REVIEW OF SYSTEMS All other reviewed and negative other than HPI. OBJECTIVE: BP 118/80 Pulse 96 Temp 37.3 ?C (99.2 ?F) (Left Tympanic) Resp 16 Wt 127 kg (280 lb) LMP 12/18/2019 (LMP Unknown) BMI 48.06 kg/m? APPEARANCE Well appearing, alert, in no acute distress, well-hydrated, well nourished. and Obese ABDOMEN bowel sounds normoactive, no bruits, soft, non-distended, palpable umbilical hernia that is tender when patient does situp. No evidence of obstruction on exam. Reduces when patient relaxes back to supine position. ASSESSMENT/PLAN: 1. Umbilical hernia without obstruction or gangrene - ICD9: 553.1, ICD10: K42.9 Given that she has developed more pain associated with the hernia, I would recommend patient discussing options with surgeon. Patient in agreement. ER if worsening pain. - CONSULT TO GENERAL SURGERY Vi Jalloh PA-C Referring Provider: SELF [[id number]] Allergies As of Date: 03/24/2021 Noted Allergy Reaction asthma med [Other] 02/16/2005 Comments: caused hallucinations dena topping [Other] 02/16/2005 4 - Hives Date Reviewed: 03/24/2021 Reviewed by: Eryn Pagan Ma - Fully Assessed Reason for Visit: Pain [78] Cmt: hernia Primary Visit Diagnosis:Umbilical hernia without obstruction or gangrene [K42.9] Order(s):CONSULT TO GENERAL SURGERY [9011] Order #: [id number]: 1 FUTURE Prescriptions as of 03/24/2021 - metoprolol succinate ER (TOPROL XL) 25 mg 24 hr tablet Take 1 tablet by mouth once daily. Problem List As Of Date 03/24/2021 Noted Resolved ADJUSTMENT DISORDER WITH DEPRESSED MOOD [F43.21]01/22/2007 Anxiety [F41.9] 05/07/2010 Obesity, Class III, BMI 40-49.9 (morbid obesity*10/25/2010 PCOS (polycystic ovarian syndrome) [E28.2] 07/12/2016 Palpitations [R00.2] 08/31/2020 Encounter Status:Closed by VI LUCERO on 03/24/21 [facility] COVID-19, MOLECULARon 2020 SARS-CoV-2 (COVID-19) RNA LAUREN+probe Ql (Unsp spec) Not detected Normal Not Detected [facility] Comment on above: Result Comment: This test was performed under the FDA's Emergency Use Authorization (EUA). Testing was performed using the Ani SARS-CoV-2 RT-PCR assay on the Linda Ani 6800 System. This test has not been approved for use in asymptomatic patients and its performance in this patient population has not been evaluated. Negative results do not rule out the presence of SARS-CoV-2/COVID-19. Fact sheets for this EUA can be found at the following links: For Healthcare Providers: https://www.fda.gov/media/438368/download For Patients: https://www.fda.gov/media/718085/download Performed By: #### L [id number] #### [facility] [address] [place] [address] Tylor Goetz M.D. [id number] SARS-COV-2 RAPIDOrdered By: Aimee Elaine on 10-12-2020 Watch Engineer Cyto stain Nom (Cvx/Vag) [ID] NEMAHA WALK-IN [facility] NARRATIVE -1 This test was performed using isothermal LAUREN and has been approved as Emergency Use Authorization (EUA) for the qualitative detection [id number] nucleic acid. [facility] SARS-CoV-2 (COVID-19) RNA LAUREN+probe Ql (Unsp spec) Not detected NOT DETECTED [facility] Comment on above: Negative results do not preclude SARS-CoV-2 infection and should not be used as the sole basis for treatment or other patient management decisions. Optimum specimen types and timing for peak viral levels during infections caused by SARS-CoV-2 has not been determined. The possibility of a false negative result should especially be considered if the patient's recent exposures or clinical presentation suggest that SARS-CoV-2 infection is probable, and diagnostic tests for other causes of illness (e.g., other respiratory illness) are negative. Collection of a new specimen and re-testing may be necessary if the patient is critically ill or clinically deteriorating. [facility] CBC WITH AUTO DIFFERENTIALon 08-08-2020 Basophils (Bld) [#/Vol] 0.08 10*3/uL [facility] Basophils/100 WBC (Bld) 0.5 % [facility] Eosinophils (Bld) [#/Vol] 0.19 10*3/uL [facility] Eosinophils/100 WBC (Bld) 1.3 % [facility] Erythrocyte distribution width (RBC) [Entitic vol] 13.5 % 11.6 - 14.8 % [facility] Hematocrit (Bld) [Volume fraction] 47.9 % High 36.0 - 46.0 % [facility] Hemoglobin (Bld) [Mass/Vol] 14.9 g/dL 12.0 - 16.0 g/dL [facility] Immature granulocytes (Bld) [#/Vol] 0.04 10*3/uL [facility] Immature granulocytes/100 WBC (Bld) 0.30 % [facility] Comment on above: The IG parameter is the percentage of metamyelocytes, myelocytes and promyelocytes. An immature granulocyte count (IG) of 1% or more suggests the possibility of infection, an IG count of 3% is very likely related to an infection. Interpretation and review of laboratory results Abnormal [facility] Lymphocytes (Bld) [#/Vol] 4.19 10*3/uL High [facility] Lymphocytes/100 WBC (Bld) 28.5 % [facility] MCH (RBC) [Entitic mass] 27.5 pg 26.0 - 34.0 pg [facility] MCHC (RBC) [Mass/Vol] 31.1 g/dL 31.0 - 37.0 g/dL [facility] MCV (RBC) [Entitic vol] 88.4 fL 80.0 - 100.0 fL [facility] Monocytes (Bld) [#/Vol] 1.32 10*3/uL High [facility] Monocytes/100 WBC (Bld) 9.0 % [facility] Neutrophils (Bld) [#/Vol] 8.90 10*3/uL High [facility] Neutrophils/100 WBC (Bld) 60.4 % [facility] Nucleated RBC (Bld) [#/Vol] 0.00 10*3/uL [facility] Nucleated RBC/100 WBC (Bld) [Ratio] 0.0 % [facility] Platelet mean volume (Bld) [Entitic vol] 10.1 fL 9.4 - 12.4 fL [facility] Platelets (Bld) [#/Vol] 306 10*3/uL [facility] RBC (Bld) [#/Vol] 5.42 10*6/uL High [facility]alth WBC (Bld) [#/Vol] 14.72 10*3/uL [facility] Comprehensive Metabolic Pane jai 08-08-2020 Albumin [Mass/Vol] 3.5 g/dL 3.2 - 5.2 g/dL [facility] ALP [Catalytic activity/Vol] 76 U/L 40 - 140 U/L [facility] ALT [Catalytic activity/Vol] 30 U/L 14 - 65 U/L [facility] Anion gap [Moles/Vol] 9 mmol/L Low 10 - 20 mmol/L [facility] AST [Catalytic activity/Vol] 17 U/L 0 - 45 U/L [facility] Bilirubin [Mass/Vol] 0.2 mg/dL 0.0 - 1 .3 mg/dL [facility] Calcium [Mass/Vol] 9.1 mg/dL 8.4 - 10. 2 mg/dL [facility] Chloride [Moles/Vol] 108 mmol/L 98 - 10 8 mmol/L [facility] Creatinine [Mass/Vol] 0.70 mg/dL 0.40 - 1.10 [facility] GFR/1.73 sq M predicted among non-blacks MDRD (S/P/Bld) [Vol rate/Area] The eGFR should be used for monitoring renal function only and not for medication dosing. [facility] GFR/1.73 sq M.predicted CKD-EPI (S/P/Bld) [Vol rate/Area] 115 >=60 mL/min/1.73 m2 [facility] Glucose [Mass/Vol] 135 mg/dL High 65 - 99 mg/dL [facility] HCO3 [Moles/Vol] 25 mmol/L 21 - 32 mmol/L [facility] Interpretation and review of laboratory results Abnormal [facility] Potassium [Moles/Vol] 3.7 mmol/L 3.5 - 5.1 mmol/L [facility] Protein [Mass/Vol] 7.8 g/dL 6.0 - 8.0 g/dL [facility] Sodium [Moles/Vol] 138 mmol/L 135 - 145 mmol/L [facility] Urea nitrogen [Mass/Vol] 10 mg/dL 8 - 25 mg/dL [facility] Urea nitrogen/Creatinine [Mass ratio] 14.3 mg/mg [facility] ECG 12-LEADon 08-08-2020 Esdras Cruz MD 08/08/2020 3:04 PM EKG 12-lead Date/Time: 08/08/2020 1:50 PM Performed by: Esdras Cruz MD Authorized by: Esdras Cruz MD Interpreted by ED attending physician Comparison: not compared with previous ECG Rhythm: sinus rhythm BPM: 97 Conduction: conduction normal CT Interval: 150 QRS Interval: 86 QT Interval: 426 Other findings: low voltage Clinical impression: non-specific ECG and low voltage [facility] Otheron 08-08-2020 Extra Tube Hold for add-ons. [facility] Comment on above: Auto resulted. TROPONINon 08-08-2020 Troponin I.cardiac [Mass/Vol] Normal [facility] Troponin I.cardiac [Mass/Vol] ng/mL <=45 ng/L [facility] TSH with Reflex Free T4on Interpretation and review of laboratory results Normal [facility] TSH Qn 1.08 m[IU]/L [facility] XR CHEST AP/PA AND LATon No radiographic evidence of acute cardiopulmonary disease. Workstation ID: [id number] [facility] EXAMINATION: XR CHES T AP/PA AND LAT 08/08/2020 2:14 pm HISTORY: ORDERING SYSTEM PROVIDED HISTORY: COUGHING, TECHNOLOGIST PROVIDED HISTORY: Illness/Other Reason for exam: hx of heart palpitations, sob, hx of htn Cancer History: u Surgery, RadiationHistory: u Encounter Type: Initial Additional signs and symptoms: . ORDERING SYSTEM PROVIDED DIAGNOSIS CODES: COMPARISON: Prior chest x-ray from 07/26/2010. FINDINGS: Frontal and lateral views of the chest were obtained. The lungs appear clear. The heart size is within normal limits. There are no pleural effusions. No acute bony abnormality is identified in the chest. EKG wires overlie the chest. [facility] Interface, Rad In Fuji Speechq - 08/08/2020 2:44 PM EST EXAMINATION: XR CHEST AP/PA AND LAT 08/08/2020 2:14 pm HISTORY: ORDERING SYSTEM PROVIDED HISTORY: COUGHING, TECHNOLOGIST PROVIDED HISTORY: Illness/Other Reason for exam: hx of heart palpitations, sob, hx of htn Cancer History: u Surgery, RadiationHistory: u Encounter Type: Initial Additional signs and symptoms: . ORDERING SYSTEM PROVIDED DIAGNOSIS CODES: COMPARISON: Prior chest x-ray from 07/26/2010. FINDINGS: Frontal and lateral views of the chest were obtained. The lungs appear clear. The heart size is within normal limits. There are no pleural effusions. No acute bony abnormality is identified in the chest. EKG wires overlie the chest. IMPRESSION: No radiographic evidence of acute cardiopulmonary disease. Workstation ID: [id number] [facility] POC Basic Metabolic Panelon 04-25-2019 Calcium.ionized (Bld) [Mass/Vol] 4.6 mg/dL 4.5 - 5.3 mg/dL [facility] Chloride [Moles/Vol] 106 mmol/L 98 - 10 8 mmol/L [facility] CO2 [Moles/Vol] 26 mmol/L 21 - 32 mmol/L [facility] Creatinine [Mass/Vol] 0.51 mg/dL 0.4 - 1.1 mg/dL [facility] GFR/1.73 sq M.predicted MDRD (S/P/Bld) [Vol rate/Area] 129 mL/min/{1.73_m2} >=60 mL/min/1.73 m2 [facility] Glucose [Mass/Vol] 165 mg/dL High 65 - 99 mg/dL [facility] Interpretation and review of laboratory results Abnormal [facility] Potassium [Moles/Vol] 3.8 mmol/L 3.5 - 5.1 mmol/L [facility] Sodium [Moles/Vol] 141 mmol/L 135 - 145 mmol/L [facility] Urea nitrogen [Mass/Vol] 11 mg/dL 8 - 25 mg/dL [facility] POC CBC and Differentialon 1 06-25-2018 Erythrocyte distribution width (RBC) [Entitic vol] 13.9 % 11.6 - 14.8 % [facility] Hematocrit (Bld) [Volume fraction] 41.4 % 36 - 46 % [facility] Hemoglobin (Bld) [Mass/Vol] 13.6 g/dL 12 - 16 g/dL [facility] Lymphocytes (Bld) [#/Vol] 3.6 10*3/uL [facility] Lymphocytes/100 WBC (Bld) 38.2 % [facility] MCH (RBC) [Entitic mass] 28.6 pg 26 - 34 pg [facility] MCHC (RBC) [Mass/Vol] 32.9 g/dL 31 - 37 g/dL [facility] MCV (RBC) [Entitic vol] 87.0 fL 80 - 100 fL [facility] Mixed 7.5 % [facility] Mixed Abs 0.7 K/mcl [facility] Neutrophil Abs 5.1 [facility] Neutrophils/100 WBC (Bld) 54.3 % [facility] Platelet mean volume (Bld) [Entitic vol] 9.7 fL 9 - 15.5 fL [facility] Platelets (Bld) [#/Vol] 276 10*3/uL [facility] RBC (Bld) [#/Vol] 4.76 10*6/uL [facility] WBC (Bld) [#/Vol] 9.40 10*3/uL [facility] POC , Urineon 04-25 Beta HCG ( test) Ql (U) Dilute urine specimens, as indicated by a low specific gravity (<1.010) may not contain access services representative levels of hCG. If is still suspected, a serum test or repeat urine test using a first morning urine specimen should be considered. [facility] HCG ( test) Ql (U) Negative Negative [facility] Interpretation and review of laboratory results Normal [facility] Vital Signs Date Time Vital Sign Value Performing Clinician Facility 06-05-2023 14:31-0500 Body height 162.6 cm Mercy Wong MD Work Phone: [facility] 06-05-2023 14:31-0500 Body mass index (BMI) [Ratio] 43.65 kg/m2 Mercy Wong MD Work Phone: [facility] 06-05-2023 14:31-0500 Body temperature 97.59 [degF] Mercy Wong MD Work Phone: [facility] 06-05-2023 14:31-0500 Body weight 115.35 kg Mercy Wong MD Work Phone: [facility] 06-04-2023 14:21-0500 Body mass index (BMI) [Ratio] 42.91 kg/m2 [facility] 06-04-2023 14:21-0500 Body temperature 97.5 [degF] [facility] 06-04-2023 14:21-0500 Body weight 113.4 kg [facility] 06-04-2023 14:21-0500 Diastolic blood pressure 69 mm[Hg] [facility] 06-04-2023 14:21-0500 Heart rate 69 /min [facility] 06-04-2023 14:21-0500 Respiratory rate 16 /min [facility] 06-04-2023 14:21-0500 SaO2% (BldA) [Mass fraction] 98 % [facility] 06-04-2023 14:21-0500 Systolic blood pressure 138 mm[Hg] [facility] 05-29-2023 19:01-0500 Body height 162.6 cm Raiza Borges PA Work Phone: [facility] 05-29-2023 19:01-0500 Body mass index (BMI) [Ratio] 42.91 kg/m2 Raiza Borges PA Work Phone: [facility] 05-29-2023 19:01-0500 Body temperature 99.1 [degF] Raiza Borges PA Work Phone: [facility] 05-29-2023 19:01-0500 Body weight 113.4 kg Raiza Borges PA Work Phone: [facility] 05-29-2023 19:01-0500 Diastolic blood pressure 63 mm[Hg] Raiza Borges PA Work Phone: [facility] 05-29-2023 19:01-0500 Heart rate 71 /min Raiza Borges PA Work Phone: [facility] 05-29-2023 19:01-0500 Respiratory rate 18 /min Raiza Borges PA Work Phone: [facility] 05-29-2023 19:01-0500 SaO2% (BldA) [Mass fraction] 99 % Raiza Borges PA Work Phone: [facility] 05-29-2023 19:01-0500 Systolic blood pressure 113 mm[Hg] Raiza Borges PA Work Phone: [facility] 10-12-2020 10:22-0400 Body height 162.6 cm Aimee Chele PA-C Work Phone: [facility] 10-12-2020 10:22-0400 Body mass index (BMI) [Ratio] 45.83 kg/m2 Aimee Chele PA-C Work Phone: [facility] 10-12-2020 10:22-0400 Body temperature 98.71 [degF] Aimee Chele PA-C Work Phone: [facility] 10-12-2020 10:22-0400 Body weight 121.11 kg Aimee Chele PA-C Work Phone: [facility] 10-12-2020 10:22-0400 Diastolic blood pressure 76 mm[Hg] Aimee Chele PA-C Work Phone: [facility] 10-12-2020 10:22-0400 Heart rate 102 /min Aimee Chele PA-C Work Phone: [facility] 10-12-2020 10:22-0400 Respiratory rate 16 /min Aimee Chele PA-C Work Phone: [facility] 10-12-2020 10:22-0400 SaO2% (BldA) [Mass fraction] 97 % Aimee Chele PA-C Work Phone: [facility] 10-12-2020 10:22-0400 Systolic blood pressure 116 mm[Hg] Aimee Chele PA-C Work Phone: [facility] 08-08-2020 15:00-0500 BP Diastolic 75 mm[Hg] [facility] 08-08-2020 15:00-0500 BP Systolic 126 mm[Hg] [facility] 08-08-2020 15:00-0500 Pulse (Heart Rate) 87 /min [facility] 08-08-2020 15:00-0500 Pulse Oximetry 96 % [facility] 08-08-2020 13:51-0500 Body Temperature 98.71 [degF] [facility] 08-08-2020 13:51-0500 Respiratory Rate 14 /min [facility] 08-08-2020 13:47-0500 BMI (Body Mass Index) 46.35 kg/m2 [facility] 08-08-2020 13:47-0500 Body weight 122.47 kg [facility] 08-08-2020 13:47-0500 Height 162.6 cm [facility] 05-11-2020 16:23-0500 BMI (Body Mass Index) 46.69 kg/m2 [facility] 05-11-2020 16:23-0500 Body Temperature 99 [degF] [facility] 05-11-2020 16:23-0500 Body weight 123.38 kg [facility] 05-11-2020 16:23-0500 BP Diastolic 90 mm[Hg] [facility] 05-11-2020 16:23-0500 BP Systolic 130 mm[Hg] [facility] 05-11-2020 16:23-0500 Height 162.6 cm [facility] 05-11-2020 16:23-0500 Pulse (Heart Rate) 91 /min [facility] 05-11-2020 16:23-0500 Pulse Oximetry 97 % [facility] 05-11-2020 16:23-0500 Respiratory Rate 18 /min [facility] 04-25-2019 00:10-0500 Body Temperature 98.29 [degF] [facility] 04-25-2019 00:10-0500 BP Diastolic 79 mm[Hg] [place] [facility] 04-25-2019 00:10-0500 BP Systolic 129 mm[Hg] [place] [facility] 04-25-2019 00:10-0500 Pulse (Heart Rate) 87 /min [place] [facility] 04-25-2019 00:10-0500 Pulse Oximetry 96 % [place] [facility] 04-25-2019 00:10-0500 Respiratory Rate 18 /[facility] Encounters Encounter Date Encounter Type Care Provider Facility Start: 12-09-2024 ambulatory Zulema Ramirez Fa cility:[facility] Start: 07-01-2024 End: 07-01-2024 ambulatory No Primary Care Physician Facility:[facility] Start: 06-18-2024 End: 06-18-2024 ambulatory Zulema Ramirez Facility:[facility] Start: 06-11-2024 End: 06-12-2024 ambulatory DOMINGA MEÑO [facility] Start: 06-05-2024 End: 06-05-2024 ambulatory No Primary Care Physician Facility:[facility] Start: 05-29-2024 End: 05-29-2024 ambulatory No Primary Care Physician Facility:[facility] Start: 05-24-2024 End: 05-24-2024 ambulatory No Primary Care Physician Facility:[facility] Start: 05-24-2024 End: 05-24-2024 ambulatory No Primary Care Physician Facility:[facility] Start: 05-12-2024 End: 05-12-2024 ambulatory No Primary Care Physician Facility:[facility] Start: 05-10-2024 End: 05-10-2024 ambulatory No Primary Care Physician Facility:[facility] Start: 08-10-2023 End: 08-10-2023 Emergency department patient visit PHYSICIAN NO [facility] Start: 06-05-2023 ambulatory MERCY WONG [facility] Start: 06-05-2023 End: 06-05-2023 Office outpatient new 45 minutes Mercy Wong MD Work Phone: [facility] Comment on above: Dysfunction of left eustachian tube (Primary Dx); Chronic suppurative otitis media of left ear, unspecified otitis media location; Conductive hearing loss of left ear with unrestricted hearing of right ear; Nasal congestion; Deviated nasal septum; Nasal turbinate hypertrophy Start: 06-04-2023 ambulatory SELF SELF [facility] Start: 06-04-2023 End: 06-04-2023 Office outpatient visit 15 minutes Boris IRVINSAP HANA DEVELOPER Work Phone: [facility] Comment on above: Recurrent acute sero us otitis media of left ear (Primary Dx); Otalgia of left ear Start: 05-29-2023 ambulatory SELF SELF [facility] Start: 05-29-2023 End: 05-29-2023 Office outpatient visit 15 minutes Raiza SABILLON Work Phone: [facility] Comment on above: Non-recurrent acute serous otitis media of left ear (Primary Dx) Start: 01-06-2023 End: 01-06-2023 [facility] Start: 05-10-[address] [facility] Start: 02-26-2021 End: 02-26-2021 ambulatory [facility] Start: 01-25-2021 End: 01-25-2021 Orders Only [facility] Comment on above: ANABELLE (obstructive sle ep apnea) (Primary Dx) Start: 01-15-2021 End: 01-15-2021 Transcribe Orders [facility] Comment on above: Primary narcolepsy w ithout cataplexy (Primary Dx) Start: 11-25-2020 End: 11-25-2020 Transcribe Orders Jazzy [employer] Work Phone: [facility] Comment on above: Sleep disturbances ( Primary Dx); Excessive sleepiness while driving Start: 10-12-2020 End: 10-12-2020 Office outpatient visit 15 minutes Aimee Elaine PA-C Work Phone: [facility] Comment on above: Encounter for screen ing for COVID-19 (Primary Dx); Cough Start: 08-08-2020 End: 08-08-2020 Emergency department patient visit Esdras Cruz Work Phone: [facility] Comment on above: Palpitations (Primar y Dx); PVC (premature ventricular contraction) Start: 05-11-2020 End: 05-11-2020 Office outpatient new 20 minutes Suni Yanes Work Phone: [facility] Comment on above: Left arm pain (Prima ry Dx) Start: 04-25-2019 End: 04-25-2019 [facility] Start: 04-25-2019 End: 04-25-2019 [facility] Work Phone: [facility] Comment on above: Dizzy (Primary Dx) Procedures Date Procedure Procedure Detail Performing Clinician Start: 06-05-2023 Nasal endoscopy diagnostic uni/bi spx Mercy Wong MD Work Phone: Start: 10-12-2020 SARS-COV-2 RAPID Aimee Elaine PA-C Work Phone: Start: 08-08-2020 12 lead ECG Esdras Cruz Work Phone: Start: 08-08-2020 Standard chest X-ray Esdras Cruz Work Phone: Start: 08-08-2020 Complete blood count with white cell differential, automated Esdras Cruz Work Phone: Start: 08-08-2020 Complete blood count with white cell differential, manual Esdras Cruz Work Phone: Start: 08-08-2020 Comprehensive metabolic 2000 panel - Serum or Plasma Esdras Cruz Work Phone: Start: 08-08-2020 LAVENDER TOP Esdras Cruz Work Phone: Start: 08-08-2020 LIGHT BLUE TOP Esdras Cruz Work Phone: Start: 08-08-2020 LIGHT GREEN TOP Esdras Cruz Work Phone: Start: 08-08-2020 MINT GREEN TOP Esdras Cruz Work Phone: Start: 08-08-2020 RAINBOW DRAW Esdras Cruz Work Phone: Start: 08-08-2020 Thyrotropin [Units/volume] in Serum or Plasma by Detection limit <= 0.005 mIU/L Esdras Cruz Work Phone: Start: 08-08-2020 Troponin measurement Esdras Cruz Work Phone: Start: 04-25-2019 Choriogonadotropin ( test) [Presence] in Urine [facility] Start: 04-25-2019 Assay of urea nitrogen quantitative [facility] Start: 04-25-2019 Blood count complete auto&auto difrntl [facility] [place] Work Phone: Plan of Treatment Date Care Activity Detail Author Start: 02-17-2023 Influenza vaccination INFLUENZA VACC INE (#1) [facility] Start: 03-03-2021 End: 03-03-2021 Patient encounter procedure 03/03/2021 Appointment Sleep Medicine [facility] Start: 03-02-2021 End: 03-02-2021 Patient encounter procedure 03/02/2021 Appointment Sleep Medicine Tato Burns MD [address] [place], [place] [id number] [phone] [facility] Start: 02-17-2021 Influenza vaccination [facility] Start: 02-18-2020 Influenza vaccination INFLUENZA VACC INE (#1) [facility] Start: 02-18-2020 Influenza vaccinatio n given Sequential Influenza Vaccine (#1) [facility] Start: 09-13-2008 Screening for malign ant neoplasm of cervix CERVICAL CANCER SCREENING DISCUSSION [facility] Start: 09-13-2006 Third diphtheria, tetanus and acellular pertussis (DTaP) vaccination TDAP (ADULT) [facility] Start: 09-13-2005 Hepatitis C antibody , confirmatory test Hepatitis C Screening [facility] Start: 09-13-2005 Hepatitis C screening Hepatitis C Sc reening [facility] Start: 09-13-2005 Tetanus vaccination TETANUS [facility] Start: 2003 COVID-19 Vaccine (1 of 2) COVID-19 Vaccine ([facility] 2) [facility] Start: 2003 COVID-19 VACCINE (1) COVID-19 VACCIN E (1) [facility] Start: 01-04-2003 Tetanus vaccination TETANUS [facility] Start: 09-13-2002 HIV screening [facility] Start: 09-13-2000 HIV screening HIV SCREENING DISCUSSION [facility] Start: 1999 Adolescent depressio n screening assessment Depression Screening (PHQ9) [facility] Start: 1999 COVID-19 Vaccine (1) COVID-19 Vaccin e (1) [facility] Start: 1999 Depression screening using PHQ-9 (Patient Health Questionnaire 9) score Depression Screening (PHQ9) [facility] Start: 09-13-1993 PNEUMOCOCCAL VACCINE SERIES (1 - PCV) PNEUMOCOCCAL VACCINE SERIES (1 - PCV) [facility] Start: 09-13-1993 Pneumococcal Vaccine : Ped or At-Risk (1 of 2 - PPSV23) Pneumococcal Vaccine: Ped or At-Risk (1 of 2 - PPSV23) [facility] Start: 09-13-1990 History and physical examination, annual for health maintenance Wellness Visit [facility] Start: 03-16-1988 COVID-19 VACCINE (#1) COVID-19 VACCI NE (#1) [facility] Start: 1987 Hepatitis B vaccination HEP B VACCINE (1 of 3 - 3-dose series) [facility] Start: 1987 Hepatitis C antibody , confirmatory test HEPATITIS C VIRUS SCREENING [facility] Start: 1987 Hepatitis C screening HEPATITI S C VIRUS SCREENING [facility] Start: 1987 Screening for malign ant neoplasm of cervix Pap Smear [facility] Start: 1987 Tetanus vaccination Tetanus: Every 1 0yrs [facility] End: 01-25-2022 SARS-CoV-2 (COVID-19) RdRp gene [Presence] in Respiratory specimen by LAUREN with probe detection COVID-19, Molecular Microbiology Routine ANABELLE (obstructive sleep apnea) 1 Occurrences starting 01/25/2021 until 01/25/2022 [facility] Comment on above: 1 Occurrences starti ng 01/25/2021 until 01/25/2022 Payers Date Payer Category Payer Self-pay 2024 Unknown [id number] 2022 Unknown [employer] M [place] [id number] 2022-Present [address] [place] [address] [id number] 2022 Unknown [id number] 2022 Unknown [id number] 2016 Unknown [id number] 2016 Unknown [employer] S UPERMED PPO xxxxxxxxxxxx 2016-Present [id number] 2016 Unknown [employer] UPERMED PPO [id number] 2016-Present [id number] 1987 Unknown [id number] 1987 Unknown [id number] [id number] 1987 Unknown [id number] [id number] 1987 Unknown [id number] [id number] 1987 Unknown [id number] [id number] 1987 Unknown [id number] [id number] 1987 Unknown [id number] [id number] 1987 Unknown [id number] [id number] 1987 Unknown [id number] [id number] Unknown [id number] [id number] Unknown [id number] [id number] Unknown [id number] [id number] Unknown [id number] [id number] Unknown [id number] [id number] Unknown [id number] [id number] Unknown [id number] [id number] Unknown [id number] [id number] Unknown [id number] [id number] Social History Date Type Detail Facility Start: 04-25-2019 Tobacco smoking stat [facility] Unknown if ever smoked [facility] Start: 1987 Sex Assigned At Not on file [facility] Start: 08-08-2020 End: 06-05-2023 Tobacco smoking status NHIS Current every day smoker Satiety [facility] Start: 08-08-2020 End: 06-05-2023 Tobacco use and exposure Never used Satiety [facility] Start: 08-08-2020 Alcohol intake Lifetime non-d daniel (finding) [facility] Start: 08-08-2020 History SDOH Alcohol Frequency 1 [facility] Exposure to SARS-CoV -2 (event) Not sure [facility] History of tobacco use Cigarette Smoker [facility] Start: 05-11-2020 End: 06-05-2023 Cigarettes smoked current (pack per day) - Reported [facility] Start: 05-11-2020 End: 06-05-2023 Alcohol intake Current drinker of alcohol (finding) [facility] Start: 05-11-2020 Alcohol Comment rare [facility] Start: 05-29-2023 End: 06-05-2023 Tobacco use panel [facility] Clinical Notes 10-12-2020 to 06-12-2024 Lavonne Douglass, ELECTRICIAN - 06/05/2023 2:40 PM Cristal Wong MD - 06/05/2023 2:40 PM Cristal Wong MD - 06/05/2023 2:40 PM Cristal Wong MD - 06/05/2023 2:40 PM ESTPatient Instructions Note Date & Type Note Facility 06-12-2024 Note Patient states her b leeding is like a normal menstrual flow at this time. She denies any cramping, lightheadedness or dizziness. Abdomen is soft nontender, nondistended. Extremities: Negative Assessment: Complete miscarriage and mother with Rh- blood type. Plan: Repeat CBC Rhophylac Discharge to home after Rhophylac. AUTHENTICATED BY JIHAN NASH, ON 06/12/2024 08:07:09 [facility] 06-11-2024 Note Ultrasound repeat sh owed no further gestational sac or pole, endo is 2.4cm Pt is bleeding small amount now, much improved. Will observe for now. AUTHENTICATED BY DOMINGA REILLY, ON 06/11/2024 23:54:21 [facility] 06-11-2024 Note Obstetrics History a nd Physical Subjective Chief Complaint Patient presents with Vaginal Bleeding HPI: Angela Sales is a 38 y.o. No obstetric history on file. at Unknown who presents to the Center with complaints of known missed AB. Pt had syncopal episode this evening at home with what she states was a large amount of vaginal bleeding. Pt has declined and continues to decline cytotec or surgical intervention. Pt has desire to be discharged but continues to be symptomatic with near syncope and diaphoresis. Pt states she passed a large amount of material into bedpan after her ultrasound was performed earlier. Ultrasound at that time showed no FHT but sac and pole still present in the uterus. Review of Systems: The following ROS was otherwise negative, except as noted in the HPI: constitutional, HEENT, respiratory, cardiovascular, gastrointestinal, genitourinary, skin, musculoskeletal, neurological, psych. Active Problems There are no active problems to display for this patient. Obstetrical History: OB History No obstetric history on file. Past Medical History: Past Medical History: Diagnosis Date PCOS (polycystic ovarian syndrome) Medications: No current outpatient medications on file as of 06/11/2024. Allergies: Patient has no known allergies. Surgical History: Past Surgical History: Procedure Laterality Date HERNIA REPAIR ovary removed Right 2010 Family History: History reviewed. No pertinent family history. Social History: Social History Substance and Sexual Activity Alcohol Use Never Social History Substance and Sexual Activity Drug Use Never Social History Tobacco Use Smoking Status Former Current packs/day: 0.50 Average packs/day: 0.5 packs/day for 10.0 years (5.0 ttl pk-yrs) Types: Cigarettes Smokeless Tobacco Never Social History Substance and Sexual Activity Sexual Activity Not on file Objective OBGyn Exam Physical Exam: BP (!) 72/47 Pulse (!) 59 Temp 98.1 degrees F (36.7 degrees C) Resp (!) 19 Ht 5' 4 (1.626 m) Wt 81.6 kg (180 lb) LMP 03/25/2024 SpO2 99% BMI 30.90 kg/m Vitals: 06/11/24 1830 06/11/24 2100 06/11/24 2200 06/11/24 2245 BP: 119/71 110/70 111/70 (!) 72/47 Pulse: 90 96 72 (!) 59 Resp: (!) 21 (!) 19 Temp: SpO2: 99% 99% 100% 99% Weight: Height: Body mass index is 30.9 kg/m . Neuro: She has no focal neurologic deficits. Normal gait and mobility. Pulm: Breathing is non labored breathing with no use of accessory muscles. CV: Skin well perfused. No edema. No significant varicosities. Musculoskeletal: No gross osteopathic abnormalities noted on general physical exam. Skin: Skin exam normal on brief evaluation of exposed skin with no obvious rashes or concerning lesions. Abd: Soft. Non tender. No rebound or guarding. Uterus: Non tender, gravid. Pelvic:Genital exam not performed by this provider at this time. Cervical Check: Cervix was not checked by physician or CNM at this time. Labs: Labs from the last 3 days: Admission on 06/11/2024 Component Date Value Ref Range Status Extra Tube 06/11/2024 Hold for add-ons. Final Extra Tube 06/11/2024 Hold for add-ons. Final Extra Tube 06/11/2024 Hold for add-ons. Final Sodium 06/11/2024 138 135 - 145 mmol/L Final Potassium 06/11/2024 3.7 3.5 - 5.1 mmol/L Final Chloride 06/11/2024 106 98 - 108 mmol/L Final Bicarbonate 06/11/2024 22 21 - 32 mmol/L Final Anion Gap 06/11/2024 14 10 - 20 mmol/L Final Glucose 06/11/2024 126 (H) 65 - 99 mg/dL Final BUN 06/11/2024 11 8 - 25 mg/dL Final Creatinine 06/11/2024 0.53 0.40 - 1.10 mg/dL Final eGFR 06/11/2024 123 >=60 mL/min/1.73 m2 Final BUN/Creatinine Ratio 06/11/2024 20.8 (H) 10.0 - 20.0 Final Total Protein 06/11/2024 6.3 6.0 - 8.0 g/dL Final Albumin 06/11/2024 4.0 3.2 - 5.2 g/dL Final Calcium 06/11/2024 8.5 8.4 - 10.2 mg/dL Final Alkaline Phosphatase 06/11/2024 39 (L) 40 - 140 U/L Final AST 06/11/2024 26 0-35 U/L U/L Final ALT 06/11/2024 29 0-35 U/L U/L Final Total Bilirubin 06/11/2024 0.3 0.0 - 1.3 mg/dL Final hCG Quant 06/11/2024 5,088 (H) 0 - 5 mIU/mL Final Protime (PT) 06/11/2024 13.9 11.8 - 14.3 seconds Final INR 06/11/2024 1.1 0.8 - 1.1 Final ABORh 06/11/2024 A Negative Final Antibody Screen 06/11/2024 Negative Final Specimen Expires 06/11/2024 06/14/2024 23:59 EST Final WBC 06/11/2024 8.45 4.50 - 11.00 K/mcL Final RBC 06/11/2024 4.07 4.00 - 5.20 M/mcL Final Hemoglobin 06/11/2024 12.4 12.0 - 16.0 g/dL Final Hematocrit 06/11/2024 36.8 36.0 - 46.0 % Final MCV 06/11/2024 90.4 80.0 - 100.0 fL Final MCH 06/11/2024 30.5 26.0 - 34.0 pg Final MCHC 06/11/2024 33.7 31.0 - 37.0 g/dL Final Platelets 06/11/2024 197 150 - 400 K/mcL Final RDW - CV 06/11/2024 13.3 11.6 - 14.8 % Final MPV 06/11/2024 9.5 9.4 - 12.4 fL Final Neutrophils 06/11/2024 62.5 % Final Lymphocytes 06/11/2024 25.3 % Final Monocytes 06/11/2024 9.6 % Final Eosinophils 06/11/2024 1.7 % (more content not included)... [facility] 06-05-2023 History of Present illness Narrative Angela complains of left ear pain for the past 3 months. She went to the walk in clinic yesterday and was given a prescription for Claritan and a referral to ENT. Her last dose of Prednisone is today. ENT History & Physical Chief Complaint: New Patient Referring Provider: Raiza Borges PA HPI: Angela Sales is a 37 y.o. female who presents with LEFT eustachian tube dysfunction. Patient notes intermittent aural fullness, hearing loss, tinnitus, ear popping and crackling. It seems to improve briefly with ear popping, but patient has difficulty popping ears. This has been a problem for months. Started with a URI and was told she has fluid buildup in her ear. Patient denies otorrhea, vertigo, facial weakness. Patient denies prior history of ear surgery or trauma. I reviewed Raiza Borges's note dated 05/29/23. The following areas of the chart have been personally reviewed: Tobacco Allergies Meds Problems Med Hx Surg Hx Fam Hx Review of Systems: General: Negative Eyes: Negative ENT: Per HPI Heart: Negative Respiratory: Negative GI: Negative : Negative Skin: Negative Neuro: Negative Psych: Negative Endocrine: Negative Heme/lymph: Negative Past Medical History: Past Medical History: Diagnosis Date PCOS (polycystic ovarian syndrome) Past Surgical History: Past Surgical History: Procedure Laterality Date CYSTOSTOMY OOPHORECTOMY Right Medications: Current Outpatient Medications Medication Sig fluticasone 50 MCG/ACT Suspension nasal spray 2 sprays each nostril daily loratadine-pseudoephedrine (Loratadine-D 24HR) 10-240 MG Tab SR 24 HR Take 1 tablet by mouth daily. predniSONE 10 MG (21) Tab Therapy Pack Take 6 pills on day 1, then 5, 4, 3, 2 and 1 each day sequentially Albuterol Sulfate (ProAir RespiClick) 108 (90 Base) MCG/ACT Aerosol Powder, breath activated Inhale 2 puffs 4 times daily as needed. (Patient not taking: Reported on 06/05/2023) benzonatate 200 MG capsule Take 1 capsule by mouth 3 times daily as needed for Cough. (Patient not taking: Reported on 06/05/2023) Allergies: Allergies Allergen Reactions Aches-Pains Medicine [Homeopathic Products] caused hallucinations Family History: Family History Problem Relation Age of Onset No known problems Mother Diabetes Father Stroke Father x3 Social History: Social History Tobacco Use Smoking status: Every Day Packs/day: .5 Types: Cigarettes Smokeless tobacco: Never Vaping Use Vaping Use: Never used Substance Use Topics Alcohol use: Yes Comment: rare Drug use: Never Objective: Vitals: 06/05/23 1431 Temp: 97.6 F (36.4 C) General: No acute distress Head: Normocephalic, atraumatic Face: Bilateral symmetric movement, sensation intact Eyes: Extraocular movements intact, no scleral icterus Ears: The ears were examined under binocular otomicroscopy. Obstructive cerumen was removed with cerumen loops and suction as needed. See procedure note for details. LEFT ear canal patent, tympanic membrane bulging with serous effusion. RIGHT ear canal patent, tympanic membrane midposition, pearly de, and mobile without fluid or infection Nose: Bilateral nasal cavities patent, moist mucosa Mouth: Moist mucous membranes, no lesions Neck: Supple, nontender, no lymphadenopathy Cardiovascular: Intact peripheral perfusion Pulmonary: Equal chest rise, nonlabored respirations, no stridor Skin: Warm and dry, no lesions of the head and neck Neuro: Alert and oriented, no cranial nerve deficits Psych: Normal affect Procedure: Rigid nasal endoscopy (see procedure note for details) Findings: Right: Nasal cavity with moderate turbinate hypertrophy, no pus, no polyps, no masses Left: Nasal cavity with moderate turbinate hypertrophy, no pus, no polyps, no masses Nasopharynx: Clear, bilateral eustachian tube orifices patent, no masses Septum: Moderately deviated to the left with inferior spur, makes access of nasopharynx very difficult Assessment and Plan: Angela was seen today for new patient. Diagnoses and all orders for this visit: Dysfunction of left eustachian tube - CT NASAL ENDOSCOPY,DX Chronic suppurative otitis media of left ear, unspecified otitis media location - CT EAR MICROSCOPY EXAMINATION Conductive hearing loss of left ear with unrestricted hearing of right ear - CT EAR MICROSCOPY EXAMINATION Nasal congestion - CT NASAL ENDOSCOPY,DX Deviated nasal septum Nasal turbinate hypertrophy -- LEFT eustachian tube dysfunction with serous effusion. Discussed options including observation, trial of nasal corticosteroid sprays and allergy medication, myringotomy with ear tube placement, and/or eustachian tube balloon dilation. After discussion of risks, benefits, indications and alternatives of the options, patient opts for trial of nasal steroid sprays or allergy medication. -- Pt will call if desiring LEFT ear tube placement in the office -- RTC PRN Mercy Wong MD documented in this encounter [facility] 06-05-2023 Note Mercy Wong MD 1 08/06/2022 3:09 PM Procedure: Binocular otomicroscopy (CPT 27373) Performed by: Mercy Wong MD Pre-procedure diagnosis: hearing loss, otalgia, and eustachian tube dysfunction Post-procedure diagnosis: Same Description: After obtaining verbal informed consent, the patient was positioned seated upright. The binocular microscope and a disposable otic speculum were used to examine the bilateral ears. Obstructive cerumen was removed with a combination of cerumen loops and suction. The findings are as described below. The speculum was removed. The patient tolerated the procedure well and I performed the procedure myself. Findings: LEFT ear canal patent, tympanic membrane bulging with serous effusion. RIGHT ear canal patent, tympanic membrane midposition, pearly de, and mobile without fluid or infection Procedure: Rigid nasal endoscopy (CPT 88488) Performed by: Mercy Wong MD Pre-procedure diagnosis: Nasal congestion not able to visualize posteriorly Post-procedure diagnosis: Same Description: After obtaining informed consent, the patient was positioned seated upright. The 0-degree rigid nasal endoscope was inserted in a two-pass maneuver into the right nasal cavity and then the left. The findings are as described below. The scope was removed. The patient tolerated the procedure well and I performed the procedure myself. Findings: Right: Nasal cavity with moderate turbinate hypertrophy, no pus, no polyps, no masses Left: Nasal cavity with moderate turbinate hypertrophy, no pus, no polyps, no masses Nasopharynx: Clear, bilateral eustachian tube orifices patent, no masses Septum: Moderately deviated to the left with inferior spur, makes access of nasopharynx very difficult [facility] 06-05-2023 Note Mercy Wong MD 1 08/06/2022 3:09 PM Procedure: Binocular otomicroscopy (CPT 42865) Performed by: Mercy Wong MD Pre-procedure diagnosis: hearing loss, otalgia, and eustachian tube dysfunction Post-procedure diagnosis: Same Description: After obtaining verbal informed consent, the patient was positioned seated upright. The binocular microscope and a disposable otic speculum were used to examine the bilateral ears. Obstructive cerumen was removed with a combination of cerumen loops and suction. The findings are as described below. The speculum was removed. The patient tolerated the procedure well and I performed the procedure myself. Findings: LEFT ear canal patent, tympanic membrane bulging with serous effusion. RIGHT ear canal patent, tympanic membrane midposition, pearly de, and mobile without fluid or infection Procedure: Rigid nasal endoscopy (CPT 63742) Performed by: Mercy Wong MD Pre-procedure diagnosis: Nasal congestion not able to visualize posteriorly Post-procedure diagnosis: Same Description: After obtaining informed consent, the patient was positioned seated upright. The 0-degree rigid nasal endoscope was inserted in a two-pass maneuver into the right nasal cavity and then the left. The findings are as described below. The scope was removed. The patient tolerated the procedure well and I performed the procedure myself. Findings: Right: Nasal cavity with moderate turbinate hypertrophy, no pus, no polyps, no masses Left: Nasal cavity with moderate turbinate hypertrophy, no pus, no polyps, no masses Nasopharynx: Clear, bilateral eustachian tube orifices patent, no masses Septum: Moderately deviated to the left with inferior spur, makes access of nasopharynx very difficult [facility] 06-05-2023 Procedure note Associated Ord er(s): CT NASAL ENDOSCOPY,DX; CT EAR MICROSCOPY EXAMINATION Procedure: Binocular otomicroscopy (CPT 19769) Performed by: Mercy Wong MD Pre-procedure diagnosis: hearing loss, otalgia, and eustachian tube dysfunction Post-procedure diagnosis: Same Description: After obtaining verbal informed consent, the patient was positioned seated upright. The binocular microscope and a disposable otic speculum were used to examine the bilateral ears. Obstructive cerumen was removed with a combination of cerumen loops and suction. The findings are as described below. The speculum was removed. The patient tolerated the procedure well and I performed the procedure myself. Findings: LEFT ear canal patent, tympanic membrane bulging with serous effusion. RIGHT ear canal patent, tympanic membrane midposition, pearly de, and mobile without fluid or infection Procedure: Rigid nasal endoscopy (CPT 98507) Performed by: Mercy Wong MD Pre-procedure diagnosis: Nasal congestion not able to visualize posteriorly Post-procedure diagnosis: Same Description: After obtaining informed consent, the patient was positioned seated upright. The 0-degree rigid nasal endoscope was inserted in a two-pass maneuver into the right nasal cavity and then the left. The findings are as described below. The scope was removed. The patient tolerated the procedure well and I performed the procedure myself. Findings: Right: Nasal cavity with moderate turbinate hypertrophy, no pus, no polyps, no masses Left: Nasal cavity with moderate turbinate hypertrophy, no pus, no polyps, no masses Nasopharynx: Clear, bilateral eustachian tube orifices patent, no masses Septum: Moderately deviated to the left with inferior spur, makes access of nasopharynx very difficult [facility] 06-05-2023 Procedure note Associated Ord er(s): CT NASAL ENDOSCOPY,DX; CT EAR MICROSCOPY EXAMINATION Procedure: Binocular otomicroscopy (CPT 60588) Performed by: Mercy Wong MD Pre-procedure diagnosis: hearing loss, otalgia, and eustachian tube dysfunction Post-procedure diagnosis: Same Description: After obtaining verbal informed consent, the patient was positioned seated upright. The binocular microscope and a disposable otic speculum were used to examine the bilateral ears. Obstructive cerumen was removed with a combination of cerumen loops and suction. The findings are as described below. The speculum was removed. The patient tolerated the procedure well and I performed the procedure myself. Findings: LEFT ear canal patent, tympanic membrane bulging with serous effusion. RIGHT ear canal patent, tympanic membrane midposition, pearly de, and mobile without fluid or infection Procedure: Rigid nasal endoscopy (CPT 37371) Performed by: Mercy Wong MD Pre-procedure diagnosis: Nasal congestion not able to visualize posteriorly Post-procedure diagnosis: Same Description: After obtaining informed consent, the patient was positioned seated upright. The 0-degree rigid nasal endoscope was inserted in a two-pass maneuver into the right nasal cavity and then the left. The findings are as described below. The scope was removed. The patient tolerated the procedure well and I performed the procedure myself. Findings: Right: Nasal cavity with moderate turbinate hypertrophy, no pus, no polyps, no masses Left: Nasal cavity with moderate turbinate hypertrophy, no pus, no polyps, no masses Nasopharynx: Clear, bilateral eustachian tube orifices patent, no masses Septum: Moderately deviated to the left with inferior spur, makes access of nasopharynx very difficult documented in this encounter [facility] 06-04-2023 History of Present illness Narrative QUE Sales female 1985 presents to the [facility] with Chief Complaint Patient presents with Ear Pain Left ear pain worsening. Recently treated here for this issue 37-year-old female presents today with recurrent complaint of left ear pain. Patient was seen here 1 week ago and was treated for serous otitis media. Patient states she is on her last day of prednisone and she has had continuously had pain as her prednisone was decreased. Patient was referred to ENT through [facility] and is not heard from them at this time. Patient denies fever, shortness of breath, dysphagia, sinus pain. History Allergies Allergen Reactions Aches-Pains Medicine [Homeopathic Products] caused hallucinations Current Outpatient Medications Medication Sig Albuterol Sulfate (ProAir RespiClick) 108 (90 Base) MCG/ACT Aerosol Powder, breath activated Inhale 2 puffs 4 times daily as needed. benzonatate 200 MG capsule Take 1 capsule by mouth 3 times daily as needed for Cough. fluticasone 50 MCG/ACT Suspension nasal spray 2 sprays each nostril daily loratadine-pseudoephedrine (Loratadine-D 24HR) 10-240 MG Tab SR 24 HR Take 1 tablet by mouth daily. predniSONE 10 MG (21) Tab Therapy Pack Take 6 pills on day 1, then 5, 4, 3, 2 and 1 each day sequentially Family History Problem Relation Age of Onset No known problems Mother Diabetes Father Stroke Father x3 Past Medical History: Diagnosis Date PCOS (polycystic ovarian syndrome) Past Surgical History: Procedure Laterality Date CYSTOSTOMY OOPHORECTOMY Right Social History Socioeconomic History Marital status: Spouse name: Not on file Number of children: Not on file Years of education: Not on file Highest education level: Not on file Occupational History Not on file Tobacco Use Smoking status: Every Day Packs/day: .5 Types: Cigarettes Smokeless tobacco: Never Vaping Use Vaping Use: Never used Substance and Sexual Activity Alcohol use: Yes Comment: rare Drug use: Never Sexual activity: Not on file Other Topics Concern Service Not Asked Blood Transfusions Not Asked Caffeine Concern Not Asked Occupational Exposure Not Asked Hobby Hazards Not Asked Sleep Concern Not Asked Stress Concern Not Asked Weight Concern Not Asked Special Diet Not Asked Back Care Not Asked Exercise Not Asked Bike Helmet Not Asked Seat Belt Not Asked Domestic Violence No Social History Narrative Not on file Social Determinants of Health Financial Resource Strain: Not on file Food Insecurity: Not on file Transportation Needs: Not on file Physical Activity: Not on file Stress: Not on file Social Connections: Not on file Intimate Partner Violence: Not on file Housing Stability: Not on file ROS Review of Systems Constitutional: Negative. HENT: Positive for ear pain. Negative for rhinorrhea, sinus pain and sore throat. Eyes: Negative. Respiratory: Negative. Cardiovascular: Negative. 8 systems reviewed with patient, negative unless specifically mentioned in history of present illness PHYSICAL EXAM Visit Vitals BP 138/69 (BP Location: Right arm, BP Position: Sitting) Pulse 69 Temp 97.5 F (36.4 C) (Temporal) Resp 16 Wt 113.4 kg (250 lb) SpO2 98% BMI 42.91 kg/m Physical Exam Vitals and nursing note reviewed. Constitutional: Appearance: Normal appearance. She is normal weight. HENT: Head: Normocephalic and atraumatic. Right Ear: Tympanic membrane, ear canal and external ear normal. Left Ear: A middle ear effusion is present. Tympanic membrane is bulging. Tympanic membrane is not injected, scarred, perforated or erythematous. Cardiovascular: Rate and Rhythm: Normal rate and regular rhythm. Pulmonary: Effort: Pulmonary effort is normal. Neurological: Mental Status: She is alert. RESULTS No results found for this or any previous visit (from the past 1 hour(s)). ASSESSMENT/PLAN 1. Recurrent acute serous otitis media of left ear 2. Otalgia of left ear Orders Placed This Encounter loratadine-pseudoephedrine (Loratadine-D 24HR) 10-240 MG Tab SR 24 HR Patient is to keep referral with ENT and call them tomorrow morning to schedule appointment. Patient is to increase use of fluticasone to twice daily 1 squirt in each nostril. We will add on Claritin D 24 hour release to use in conjunction with fluticasone. Patient is agreeable to plan and left urgent care in stable condition. If symptoms worsen patient was advised to follow up in our office, primary care provider or the Emergency Dept. Benefits, Risks, Contraindications, and Complications of recommended treatments were explained. The patient understands and agrees to proceed with plan. ADA Peterson 06/04/2023 documented in this encounter [facility] 05-29-2023 History of Present illness Narrative URGENT CARE eNCOUnter CHIEF COMPLAINT Facial Pain (Left side face pain down into neck x couple months did have xray done at dentist and tooth pulled but still has the pain and not sure if its her ear or what is causing the pain ) HPI Angela Sales is a 37 y.o. female who presents today for complaint of left ear pain that radiates down to her neck. Patient states she is had this discomfort for the past couple months. Patient has discomfort in her ear when she swallows. Denies fever. She has had some intermittent congestion. Has not tried any medication at home. REVIEW OF SYSTEMS Review of Systems As documented in HPI. A thorough 12 point review of systems was evaluated including Constitutional and general appearance, Head, Face, Ears, Eyes, Nose, Throat, Cardiovascular, Pulmonary, GI, , Skin, and Psychiatric and was found to be negative without symptoms or signs consistent with acute pathology with the exception of that specifically documented in the HPI section of this documentation. PAST MEDICAL HISTORY Past Medical History: Diagnosis Date PCOS (polycystic ovarian syndrome) SURGICAL HISTORY Past Surgical History: Procedure Laterality Date CYSTOSTOMY OOPHORECTOMY Right CURRENT MEDICATIONS Current Outpatient Medications Medication Sig Dispense Refill Albuterol Sulfate (ProAir RespiClick) 108 (90 Base) MCG/ACT Aerosol Powder, breath activated Inhale 2 puffs 4 times daily as needed. 1 Each 0 benzonatate 200 MG capsule Take 1 capsule by mouth 3 times daily as needed for Cough. 21 capsule 0 fluticasone 50 MCG/ACT Suspension nasal spray 2 sprays each nostril daily 11.1 mL 0 predniSONE 10 MG (21) Tab Therapy Pack Take 6 pills on day 1, then 5, 4, 3, 2 and 1 each day sequentially 21 Each 0 No current facility-administered medications for this visit. ALLERGIES Allergies Allergen Reactions Aches-Pains Medicine [Homeopathic Products] caused hallucinations FAMILY HISTORY Family History Problem Relation Age of Onset No known problems Mother Diabetes Father Stroke Father x3 SOCIAL HISTORY Social History Socioeconomic History Marital status: Spouse name: Not on file Number of children: Not on file Years of education: Not on file Highest education level: Not on file Occupational History Not on file Tobacco Use Smoking status: Every Day Packs/day: .5 Types: Cigarettes Smokeless tobacco: Never Vaping Use Vaping Use: Never used Substance and Sexual Activity Alcohol use: Yes Comment: rare Drug use: Never Sexual activity: Not on file Other Topics Concern Service Not Asked Blood Transfusions Not Asked Caffeine Concern Not Asked Occupational Exposure Not Asked Hobby Hazards Not Asked Sleep Concern Not Asked Stress Concern Not Asked Weight Concern Not Asked Special Diet Not Asked Back Care Not Asked Exercise Not Asked Bike Helmet Not Asked Seat Belt Not Asked Domestic Violence No Social History Narrative Not on file Social Determinants of Health Financial Resource Strain: Not on file Food Insecurity: Not on file Transportation Needs: Not on file Physical Activity: Not on file Stress: Not on file Social Connections: Not on file Intimate Partner Violence: Not on file Housing Stability: Not on file PHYSICAL EXAM BP 113/63 (BP Location: Right arm, BP Position: Sitting) Pulse 71 Temp 99.1 F (37.3 C) (Temporal) Resp 18 Ht 1.626 m (5' 4) Wt 113.4 kg (250 lb) SpO2 99% BMI 42.91 kg/m Smoking Status Every Day Physical Exam General exam: Patient is well-developed and well-nourished in no distress. Patient does not appear acutely ill or toxic. Eye exam: Lids and conjunctivae are normal ENT exam: head and facial exam is normal. The neck is supple without meningeal signs. No significant adenopathy. + increased serous fluid of the left TM with air bubbles. TM intact. TM clear for the most part. Right TM clear. Bilateral external canals are normal. Pulmonary exam: No respiratory distress. Respiratory rate is normal. No stridor. Breath sounds are equal bilaterally. There are no wheezes, rales, or rhonchi noted. Cardiac exam: The cardiac rate and rhythm are normal. No significant murmurs, rubs, or gallops. Peripheral pulses are normal. Skin and soft tissue: Skin is warm and dry, without significant abnormality. Good color. Musculoskeletal exam: There is no peripheral edema. Musculoskeletal exam of the lower extremities is normal without significant focal tenderness or spasm. Neurologic: Patient is alert and appropriate. Normal speech. Normal symmetric strength and tone in all extremities. Psychiatric: Normal adult with appropriate demeanor and interpersonal interaction. Is oriented to person, place, and time. Diagnosis, Assessment & Plan: Angela was seen today for facial pain. Diagnoses and all orders for this visit: Non-recurrent acute serous otitis media of left ear - AMB REFERRAL TO OTOLARYNGOLOGY Other orders - predniSONE 10 MG (21) Tab Therapy Pack; Take 6 pills on day 1, then 5, 4, 3, 2 and 1 each day sequentially - fluticasone 50 MCG/ACT Suspension nasal spray; 2 sprays each nostril daily 37-year-old female presents today with serous otitis media of the left ear. Patient started on Flonase and prednisone also advised to use a daily antihistamine. Referral placed to ENT. Advised to return if any new or worsening symptoms. RAMANDEEP Brown 05/29/2023 documented in this encounter [facility] 07-16-2021 Note HNO ID: [id number] Author: Stephanie Stockton APRN.SAP HANA DEVELOPER Service: ? Author Type: Nurse Practitioner Type: Progress Notes Filed: 07/16/2021 3:32 PM Note Text: 07/16/2021 Patient presents with: Covid Follow Up: Congested croupy cough; SUBJECTIVE: This is a 35 year old that is here today for Above Complaints.. Reports COVID-19 beginning of June. Had some sinus issues, dizziness, fevers, and chills. Reports felt better after ten days. Started yesterday afternoon with sore throat, chest congestion, occasionally productive cough. Reports some soreness in throat from swallowing. Also admits to mild SOB when climbing stairs. Has used some OTC cough/cold preparations with mild relief. Denies fevers, chills, difficulty swallowing, headache, sinus pressure, nasal congestion, rhinorrhea, loss of taste or smell, dyspnea, chest pain, nausea, vomiting or diarrhea PAST MEDICAL HISTORY Diagnosis Date - Absence of menstruation - Adjustment disorder with depressed mood 01/22/2007 - Anxiety 05/07/2010 - Migraine with aura - PCOS (polycystic ovarian syndrome) ALLERGIES Asthma Med [Other] and Gilbert Topping [Other] MEDICATIONS Current Outpatient Medications Medication Sig - oxyCODONE-acetaminophen (PERCOCET) 5-325 mg tablet Take 1 tablet by mouth every 8 hours as needed for pain. (Patient not taking: Reported on 07/16/2021) No current facility-administered medications for this visit. Medications and allergies reviewed by this provider. SOCIAL HISTORY Social History Tobacco Use - Smoking status: Current Every Day Smoker Packs/day: 0.50 Years: 10.00 Pack years: 5.00 Types: Cigarettes - Smokeless tobacco: Never Used Substance Use Topics - Alcohol use: Yes Comment: Occasionally - Drug use: No REVIEW OF SYSTEMS All other reviewed and negative other than HPI. OBJECTIVE: BP 126/72 Pulse 101 Temp 37.7 ?C (99.9 ?F) Resp 18 Wt 127.4 kg (280 lb 12.8 oz) LMP 11/17/2020 (Approximate) SpO2 97% BMI 48.20 kg/m? . Vital signs reviewed by this provider. APPEARANCE Well appearing, alert, in no acute distress, well-hydrated, well nourished. EYES PERRLA, conjunctiva and sclera normal. EARS External ears normal, canals clear THROATno erythema and tonsillar hypertrophy, 2+. No exudates NECK Supple, no adenopathy; thyroid symmetric, normal size, no bruits HEART RRR with normal S1 and S2, no murmurs, no gallops, no JVD appreciated LUNG clear to auscultation. No wheezes, rhonchi or rales. Able to speak in full sentence without difficulty SKIN Skin color, texture, turgor normal, no suspicious rashes or lesions to exposed skin COVID-19 VACCINE(1) Never done DTAP,TDAP,TD(6 - Tdap) due on 09/13/1998 HEPATITIS C SCREENING Never done HIV SCREENING Never done ONE PNEUMOVAX PRIOR TO AGE 65 Never done INFLUENZA(1) Never done DEPRESSION SCREENING due on 08/31/2021 PAP TESTING due on 04/06/2023 HPV TESTING due on 04/06/2023 MENINGOCOCCAL CONJUGATE Aged Out ASSESSMENT/PLAN: 1. Sore throat - ICD9: 462, ICD10: J02.9 (primary diagnosis) - suspect viral - Discussed supportive care treatment with fluids, rest and analgesia. - The patient may also use OTC cough and cold meds as needed, warm salt water gargles, throat lozenges and/or OTC throat spray as needed and Cepacol lozenges. - The patient should follow up in 3-5 days if symptoms persist or worsen - Call back if drooling, increased temperature, symptoms of dehydration and/or still sick in one week 2. Cough - ICD9: 786.2, ICD10: R05.9 - plan as #1 Stephanie Podlogar, CERAMIC ENGINEERING PROFESSOR.SAP HANA DEVELOPER Prescription instructions reviewed with patient as applicable. Patient advised if symptoms do not improve or if symptoms worsen sooner, to contact their primary care physician. Potential red flag symptoms discussed with the patient. Reviewed appropriate action plan to take if red flag symptoms occur. Patient agreeable to treatment plan. [facility] 05-11-2021 Note HNO ID: [id number] Author: Ziyad Costello APRN.BLASTING ENTRY SPECIALIST Service: Anesthesiology Author Type: Nurse Senior Network Administrator Type: Anesthesia Procedure Notes Filed: 05/11/2021 8:05 AM Note Text: ANESTHESIOLOGY PROCEDURE NOTE Airway General Information Procedure Start Time/Medication Administration: 05/11/2021 7:38 AM Patient location during procedure: OR Timeout Performed Pre-procedure: timeout performed Consent Obtained: Yes Patient identity confirmed: arm band Staffing Performed by: anesthesiologist and BLASTING ENTRY SPECIALIST Indications and Patient Condition Preoxygenated: yes Patient position: sniffing Manual In-Line Stabilization: No Difficult Mask: No Indications for airway management: anesthesia anesthesia circuit Method: asleep Cricoid Pressure: No Final Airway Details Final airway type: endotracheal airway Final Endotracheal Airway: ETT Cuffed: yes Successful intubation technique: video laryngoscopy Devices used: Glidescope Endotracheal tube insertion site: oral Blade: Katty Blade size: #4 ETT size (mm): 7.0 Measured from: lips Measurement (cm): 21 Placement verified by: chest auscultation Cormack-Lehane Classification: grade I - full view of glottis Number of attempts at approach: 1 Ventilation between attempts: BVM Other Attempts Unsuccessful attempted endotracheal techniques: video laryngoscopy Failed airway: no Unrecognized esophageal intubation: no Airway not difficult SIGNATURE: Ziyad Costello APRN.BLASTING ENTRY SPECIALIST PATIENT NAME: Angela Sales DATE: May 11, 2021 TIME: 8:04 AM CSN: [id number] [facility] 05-04-2021 Note Patient Outreach (VLAD HUNTERAV) MONICAANGELA ([id number]) 1985 F Date Time Provider Department 05/04/21 TL BOWIE During your visit today, we recorded the following information about you: Tl Bowie Population Health Navigator 05/04/2021 9:57 AM Signed POPULATION HEALTH NAVIGATION OUTREACH Action/FYI I spoke with patient and verified her pcp Updated pcp field No care everywhere Contact made with patient or family member? YES Pt identified by name and : YES Outreach Outcome/Action Spoke to patient or caregiver: PCP confirmed / updated Reason for Outreach Attribution: Provider Off-boarding Payer: Payor: MMO / Plan: MMO SUPERMED PLUS / Product Type: PPO / Care Gap Reviewed:: Reminder: Reminder note to check Health Maintenance for items below Health Maintenance items due: COVID-19 VACCINE(1) Never done DTAP,TDAP,TD(6 - Tdap) due on 09/13/1998 HEPATITIS C SCREENING Never done HIV SCREENING Never done ONE PNEUMOVAX PRIOR TO AGE 65 Never done INFLUENZA(1) Never done Advanced Directives Completed: Have you ever planned for future healthcare decisions with a power of criminal defense attorney, living will, or advance directives? No. Please bring a copy to your next appointment or email to [email or web address] Referrals: N/A Message Sent to Practice: NO Navigation Signature: Tl Bowie Population Health Navigator May 04, 2021 9:56 AM Allergies As of Date: 05/04/2021 Noted Allergy Reaction asthma med [Other] 02/16/2005 Comments: caused hallucinations dena topping [Other] 02/16/2005 4 - Hives Date Reviewed: 04/08/2021 Reviewed by: Max Chino MD - Fully Assessed Reason for Visit: Population Health Navigation Outreach [3910] Cmt: Offboarding Prescriptions as of 05/04/2021 - metoprolol succinate ER (TOPROL XL) 25 mg 24 hr tablet Take 1 tablet by mouth once daily. Problem List As Of Date 05/04/2021 Noted Resolved ADJUSTMENT DISORDER WITH DEPRESSED MOOD [F43.21]01/22/2007 Anxiety [F41.9] 05/07/2010 Obesity, Class III, BMI 40-49.9 (morbid obesity*10/25/2010 PCOS (polycystic ovarian syndrome) [E28.2] 07/12/2016 Palpitations [R00.2] 08/31/2020 Encounter Status:Closed by [facility] on 05/04/21 [facility] 05-04-2021 Note HNO ID: [id number] Author: Tl Donovani Population Health Navigator Service: ? Author Type: ? Type: Progress Notes Filed: 05/04/2021 9:57 AM Note Text: POPULATION HEALTH NAVIGATION OUTREACH Action/FYI I spoke with patient and verified her pcp Updated pcp field No care everywhere Contact made with patient or family member? YES Pt identified by name and : YES Outreach Outcome/Action Spoke to patient or caregiver: PCP confirmed / updated Reason for Outreach Attribution: Provider Off-boarding Payer: Payor: MMO / Plan: MMO SUPERMED PLUS / Product Type: PPO / Care Gap Reviewed:: Reminder: Reminder note to check Health Maintenance for items below Health Maintenance items due: COVID-19 VACCINE(1) Never done DTAP,TDAP,TD(6 - Tdap) due on 09/13/1998 HEPATITIS C SCREENING Never done HIV SCREENING Never done ONE PNEUMOVAX PRIOR TO AGE 65 Never done INFLUENZA(1) Never done Advanced Directives Completed: Have you ever planned for future healthcare decisions with a power of criminal defense attorney, living will, or advance directives? No. Please bring a copy to your next appointment or email to Referrals: N/A Message Sent to Practice: NO Navigation Signature: Tl Nicholsonlli Population Health Navigator May 04, 2021 9:56 AM [facility] 04-08-2021 Note HNO ID: [id number] Author: Max Chino MD Service: ? Author Type: Physician Type: Progress Notes Filed: 04/15/2021 12:56 PM Note Text: PROGRESS NOTES PATIENT NAME: Angela Sales Assessment Consultation requested by Vi Jalloh PA-C for an opinion regarding umbilical hernia . My final recommendations will be communicated back to the requesting physician by way of shared Medical record or letter to requesting physician via US mail. ASSESSMENT AND PLAN The patient is a 35-year-old female who is being seen today for an umbilical hernia. I recommended umbilical hernia repair surgery. We discussed the details of the planned procedure including risk benefits and alternatives and she wishes to proceed. This will be scheduled in a timely manner. SUBJECTIVE CHIEF COMPLAINT: Patient presents with: Hernia: umbilical INTERVAL HISTORY OF PRESENT ILLNESS: The patient is a 35-year-old female who is being seen today for an umbilical hernia. She states she has had this for few months. This is causing her into increasing discomfort. She presents today to discuss having this repaired. GENERAL:No weight loss, malaise or fevers., See HPI HEENT:Negative for frequent or significant headaches, Wear glasses or contacts, No changes in hearing or vision, no nose bleeds or other nasal problems CARDIOVASCULAR: Negative for chest pain, Negative for leg swelling, Negative for palpitaions SKIN:Negative for lesions, rash, and itching. RESPIRATORY: Negative for cough, wheezing or shortness of breath. GASTROINTESTINAL: Negative for abdominal discomfort, blood in stools or black stools or change in bowel habits GENITOURINARY: No history of dysuria, frequency or incontinence. ENDOCRINE: None MUSCULOSKELETAL: Negative for joint pain or swelling, back pain or muscle pain. NEUROLOGIC:Negative for focal numbness or weakness, headaches and dizziness or syncope. HEMATOLOGIC/LYMPHATIC/IMMUNOLOGI C:Negative for prolonged bleeding, bruising easily or swollen nodes. I have reviewed and agree with the Review of Systems. Max Chino MD HISTORIES: PAST MEDICAL HISTORY Diagnosis Date - Absence of menstruation - Adjustment disorder with depressed mood 01/22/2007 - Anxiety 05/07/2010 - Migraine with aura - PCOS (polycystic ovarian syndrome) PAST SURGICAL HISTORY Procedure Laterality Date - Dermoid Cyst Removed 07/30/2009 - HSG 12/28/2016 Patient Left Fallopian tube- right surgically absent ALLERGIES: Asthma Med [Other] and Gilbert Topping [Other] MEDICATIONS: Current Outpatient Medications Medication Sig - metoprolol succinate ER (TOPROL XL) 25 mg 24 hr tablet Take 1 tablet by mouth once daily. (Patient not taking: Reported on 03/24/2021 ) No current facility-administered medications for this visit. FAMILY HISTORY Problem Relation Age of Onset - other (depression) Mother - Diabetes Father - Breast Cancer Maternal Grandmother Social History Tobacco Use - Smoking status: Current Every Day Smoker Types: Cigarettes Last attempt to quit: 08/17/2010 Years since quittin.6 - Smokeless tobacco: Never Used - Tobacco comment: 1 pack every month or 2 months Substance Use Topics - Alcohol use: Yes Comment: Occasionally - Drug use: No OBJECTIVE PHYSICAL EXAM: LMP 12/18/2019 GENERAL: Alert, no distress, cooperative EYES: PERRLA, EOMI LUNGS: Lungs clear to auscultation, Good diaphragmatic excursion CARDIAC: Normal S1 and S2; no rubs, murmurs, or gallops ABDOMEN: Abdomen soft, non-tender, BS normal, No masses or organomegaly DATA: Diagnostic tests reviewed for today's visit: Most recent labs and imaging results. Max Chino MD [facility] 03-24-2021 Note HNO ID: [id number] Author: Vi Jalloh PA-C Service: ? Author Type: Physician Spread Cutter Type: Progress Notes Filed: 03/24/2021 12:25 PM Note Text: 03/24/2021 Patient presents with: Pain: hernia SUBJECTIVE: This is a 35 year old that is here today for Above Complaints.. Patient states that she has had an undiagnosed abdominal hernia for the past 2 years. Never brought this up with her previous doctor as it never caused any pain. Today, she bent over to tie her shoes and when she stood up, she coughed and felt a sharp pain in this area that took about an hour to subside enough that she felt like she could move again. She is still having some nausea. But pain has improved quite a bit. States certain movements is still painful, but not to the same extent. PAST MEDICAL HISTORY Diagnosis Date - Absence of menstruation - Adjustment disorder with depressed mood 01/22/2007 - Anxiety 05/07/2010 - Migraine with aura - PCOS (polycystic ovarian syndrome) ALLERGIES Asthma Med [Other] and Dena Topping [Other] MEDICATIONS Current Outpatient Medications Medication Sig - metoprolol succinate ER (TOPROL XL) 25 mg 24 hr tablet Take 1 tablet by mouth once daily. (Patient not taking: Reported on 03/24/2021 ) No current facility-administered medications for this visit. SOCIAL HISTORY Social History Tobacco Use - Smoking status: Current Every Day Smoker Types: Cigarettes Last attempt to quit: 08/17/2010 Years since quittin.6 - Smokeless tobacco: Never Used - Tobacco comment: 1 pack every month or 2 months Substance Use Topics - Alcohol use: Yes Comment: Occasionally - Drug use: No REVIEW OF SYSTEMS All other reviewed and negative other than HPI. OBJECTIVE: BP 118/80 Pulse 96 Temp 37.3 ?C (99.2 ?F) (Left Tympanic) Resp 16 Wt 127 kg (280 lb) LMP 12/18/2019 (LMP Unknown) BMI 48.06 kg/m? APPEARANCE Well appearing, alert, in no acute distress, well-hydrated, well nourished. and Obese ABDOMEN bowel sounds normoactive, no bruits, soft, non-distended, palpable umbilical hernia that is tender when patient does situp. No evidence of obstruction on exam. Reduces when patient relaxes back to supine position. ASSESSMENT/PLAN: 1. Umbilical hernia without obstruction or gangrene - ICD9: 553.1, ICD10: K42.9 Given that she has developed more pain associated with the hernia, I would recommend patient discussing options with surgeon. Patient in agreement. ER if worsening pain. - CONSULT TO GENERAL SURGERY Vi Jalloh PA-C [facility] 10-12-2020 History of Present illness Narrative HPI Angela Sales female 1985 presents to the [facility] with Chief Complaint Patient presents with Sore Throat symptoms started yesterday Cough Fever Sinus Congestion Nasal Congestion Patient comes to the walk in clinic with cough, congestion, fevers, body aches, he states he has green nasal discharge. She is a smoker. Mild chest tightness. Temp this am when she got up. No meds taken, no fevers here. She states she hurts all over. Pain is a 5/10. She states a cowoker has similar symptoms and was tested for COVID. It was negative but they recommended have him retested in a few days. No vomiting or diarrhea but she has a mild upset stomach. He has a headache. History Allergies Allergen Reactions Aches-Pains Medicine [Homeopathic Products] caused hallucinations Current Outpatient Medications Medication Sig Albuterol Sulfate (ProAir RespiClick) 108 (90 Base) MCG/ACT Aerosol Powder, breath activated Inhale 2 puffs 4 times daily as needed. benzonatate 200 MG capsule Take 1 capsule by mouth 3 times daily as needed for Cough. predniSONE 20 MG tablet 3 tabs daily x 3days; 2 tabs daily x 3days; 1 tab daily x 3days then 1/2 tablet daily x 3days family history includes Diabetes in her father; No known problems in her mother; Stroke in her father. Past Medical History: Diagnosis Date PCOS (polycystic ovarian syndrome) Past Surgical History: Procedure Laterality Date CYSTOSTOMY OOPHORECTOMY Right Social History Socioeconomic History Marital status: Spouse name: Not on file Number of children: Not on file Years of education: Not on file Highest education level: Not on file Occupational History Not on file Tobacco Use Smoking status: Current Every Day Smoker Packs/day: 0.50 Types: Cigarettes Smokeless tobacco: Never Used Substance and Sexual Activity Alcohol use: Yes Comment: rare Drug use: Never Sexual activity: Not on file Other Topics Concern Service Not Asked Blood Transfusions Not Asked Caffeine Concern Not Asked Occupational Exposure Not Asked Hobby Hazards Not Asked Sleep Concern Not Asked Stress Concern Not Asked Weight Concern Not Asked Special Diet Not Asked Back Care Not Asked Exercise Not Asked Bike Helmet Not Asked Seat Belt Not Asked Domestic Violence No Social History Narrative Not on file Social Determinants of Health Financial Resource Strain: Difficulty of Paying Living Expenses: Not on file Food Insecurity: Worried About Running Out of Food in the Last Year: Not on file Ran Out of Food in the Last Year: Not on file Transportation Needs: Lack of Transportation (Medical): Not on file Lack of Transportation (Non-Medical): Not on file Physical Activity: Days of Exercise per Week: Not on file Minutes of Exercise per Session: Not on file Stress: Feeling of Stress : Not on file Social Connections: Frequency of Communication with Friends and Family: Not on file Frequency of Social Gatherings with Friends and Family: Not on file Attends Advent Services: Not on file Active Member of Clubs or Organizations: Not on file Attends Club or Organization Meetings: Not on file Marital Status: Not on file Intimate Partner Violence: Fear of Current or Ex-Partner: Not on file Emotionally Abused: Not on file Physically Abused: Not on file Sexually Abused: Not on file ROS Review of Systems Constitutional: Positive for chills, fatigue and fever. Respiratory: Positive for cough and chest tightness. Negative for stridor. Cardiovascular: Negative for chest pain. Gastrointestinal: Negative for abdominal pain, nausea and vomiting. Musculoskeletal: Positive for myalgias. Skin: Negative for color change, pallor, rash and wound. PHYSICAL EXAM Visit Vitals BP 116/76 (BP Location: Right arm, BP Position: Sitting) Pulse 102 Temp 98.7 F (37.1 C) (Oral) Resp 16 Ht 1.626 m (5' 4) Wt 121.1 kg (267 lb) LMP 10/12/2020 SpO2 97% BMI 45.83 kg/m Physical Exam Vitals and nursing note reviewed. Constitutional: General: She is not in acute distress. Appearance: She is well-developed. She is not toxic-appearing. HENT: Head: Normocephalic. Mouth/Throat: Mouth: Mucous membranes are moist. Tonsils: No tonsillar exudate or tonsillar abscesses. Cardiovascular: Rate and Rhythm: Normal rate. Pulmonary: Effort: Pulmonary effort is normal. No respiratory distress. Breath sounds: No stridor. No wheezing or rales. Musculoskeletal: Cervical back: Normal range of motion and neck supple. Skin: Coloration: Skin is not pale. Findings: No rash. Neurological: Mental Status: She is alert. Recent Results (from the past 1 hour(s)) SARS-COV-2 RAPID Collection Time: 10/12/20 10:33 AM Specimen: Fluid/Swab Result Value Ref Range SARS COV 2 RNA, QL REAL TIME RT PCR NOT DETECTED NOT DETECTED NARRATIVE -1 This test was performed using isothermal LAUREN and has been approved as Emergency Use Authorization (EUA) for the qualitative detection [id number] nucleic acid. PERFORMED BY [facility] ASSESSMENT/PLAN Angela was seen today for sore throat, cough, fever, sinus congestion and nasal congestion. Diagnoses and all orders for this visit: Encounter for screening for COVID-19 - SARS-COV-2 RAPID; Future - SARS-COV-2 RAPID Cough Other orders - benzonatate 200 MG capsule; Take 1 capsule by mouth 3 times daily as needed for Cough. - predniSONE 20 MG tablet; 3 tabs daily x 3days; 2 tabs daily x 3days; 1 tab daily x 3days then 1/2 tablet daily x 3days - Albuterol Sulfate (ProAir RespiClick) 108 (90 Base) MCG/ACT Aerosol Powder, breath activated; Inhale 2 puffs 4 times daily as needed. Patient looks and acts well here. COVID is negative. Vitals are good. There is no signs of any distress or airway compromise. I feel is more likely a viral upper respiratory infection. At this point I would not recommend any antibiotics. I encouraged them to continue any Tylenol or Motrin for any fevers, body aches or pain. I encouraged salt water gargles. I also encouraged fluids and rest. They're to return back to the emergency department if they develop any wheezing, high fevers, shortness of breath or worsening symptoms. Differential diagnosis does include bronchitis, pneumonia, or body aspiration, croup, epiglottitis, sepsis, pharyngitis. Patient is encouraged to follow up with her family care physician in the next few days to be rechecked return back if worse. After my independent evaluation, they appear to have a self-limiting illness likely due to a viral URI. At this time, there is a no evidence of pneumonia, hypoxia, OM, bacterial sinus infection, bacterial bronchitis, bacteremia, or sepsis. If symptoms worsen patient was advised to follow up in our office or the Emergency Dept. Benefits, Risks, Contraindications, and Complications of recommended treatments were explained. The patient understands and agrees to proceed with plan. Aimee Elaine PA-C 10/12/2020 COVID documented in this encounter [facility] 10-12-2020 Instructions Aimee Elaine PA-C - 10/12/2020 10:10 AM EDT Acute Bronchitis or Chest Cold Care Instructions Acute bronchitis, also called a chest cold, happens when your airways in your lungs, called bronchial tubes, swell and produce mucus. This is the most common type of bronchitis. The swelling of the airways and the mucus can make you cough and may cause some trouble breathing. Acute bronchitis can come on quickly after having a cold or the flu, and signs often go away in 7 to 10 days, except for the cough that can last for up to 3 weeks. Common signs include: Soreness in your chest Frequent coughing with or without mucus Feeling tired Mild head or body aches Sore throat Fever or chills Watery eyes Runny or stuffy nose Bronchitis is most often caused by a virus, like colds, and antibiotics do not help and may be harmful. Your care at home Get lots of rest and drink plenty of fluids. Use a cool mist vaporizer, or breathe moist air from a hot shower or sink filled with hot water to help thin the mucus. Sip warm liquids such as tea, broth or soup to help ease congestion and soothe the throat. Suck on lozenges, ice chips or hard candy to ease the soreness in your throat and to ease coughing. Honey may also help to ease coughing, but should not be used for a child less than 1 year old. Do not smoke and avoid being around others who smoke. Take over the counter medicines as directed by your doctor or pharmacist to ease your signs. Be sure to follow the directions on the bottle or package label. These may include: ? Pain medicines, such as acetaminophen (Tylenol), naproxen (Aleve) or ibuprofen (Advil and Motrin) to help ease head and body aches. ? Expectorant cough medicine called guaifenisin to help loosen and break up the mucus to help cough it out. ? Cough suppressant called dextromethorphan to ease cough. Avoid cough medicines that have several medicines combined to avoid taking too much medicine and having more risk of side effects. Be sure to read the labels and follow the directions. Ask your doctor or pharmacist is you have any questions. Reduce the spread of infection to others Wash your hands often with soap and water or use alcohol based hand beater room helper. Be sure to wash your hands: ? After blowing your nose, coughing or sneezing ? Before you prepare food or eat ? After going to the bathroom ? After playing with or handling a pet ? After changing a diaper ? Before and after caring for an ill person Always cover your mouth and nose when coughing or sneezing. Wear a face mask. Keep your distance from others as much as possible. Follow up care Contact your primary care provider if you develop any of these signs: Temperature of 100.4 F or higher Cough with bloody mucus New or worse shortness of breath or trouble breathing Also contact your provider if: Your signs are lasting more than 3 weeks. You have bronchitis multiple times in a year. Call 911 if you are having severe trouble breathing. 2019April 15, 2020. The [facility]. This handout is for informational purposes only. Talk with your doctor or healthcare team if you have any questions about your care. For more health information call the Library for Health Information at [phone] or email: [email or web address]. documented in this encounter [facility] Evaluation note Diagnosis Encounter for screening for COVID-19- Primary Cough [facility] Diagnosis Sleep disturbances- Primary Excessive sleepiness while driving [facility] Diagnosis Primary narcolepsy without cataplexy- Primary [facility] Diagnosis ANABELLE (obstructive sleep apnea)- Primary Obstructive sleep apnea (adult) (pediatric) [facility]* Diagnosis Non-recurrent acute serous otitis media of left ear- Primary [facility]* Diagnosis Recurrent acute serous otitis media of left ear- Primary Acute serous otitis media Otalgia of left ear Otalgia, unspecified [facility] Diagnosis Dysfunction of left eustachian tube- Primary Dysfunction of Eustachian tube Chronic suppurative otitis media of left ear, unspecified otitis media location Conductive hearing loss of left ear with unrestricted hearing of right ear Nasal congestion Other diseases of nasal cavity and sinuses Deviated nasal septum Nasal turbinate hypertrophy Hypertrophy of nasal turbinates [facility] Attachments The following attachments cannot be sent through Care Everywhere. * Earache: Adult (Northern Irish) [facility] (n[facility]ative)* Consultation (Routine) - New Request Specialty Diagnoses / Procedures Referred By Fabiola green Referred To Contact Otolaryngology Diagnoses Non-recurrent acute serous otitis media of left ear Raiza Borges PA [address] [place] [id number] Referral ID Status Reason Start Date Expiration Date V isits Requested Visits Authorized [id number] New Request 05/29/2023 06/22/2024 1 1 [facility] Summary Purpose Family History No Family History Records FoundNo Family History Records FoundNo Family History Records FoundNo Family History Records FoundNo Family History Records FoundNo Family History Records FoundNo Family History Records FoundNo Family History Records FoundNo Family History Records Found Advance Directives No Advanced Directives Records FoundDocuments on File Type Date Recorded Patient Court Recording Monitor Expl anation Advance Directives and Livin g Will 04/25/2019 12:51 AM Documents on File Type Date Recorded Patient Court Recording Monitor Expl anation Advance Directives and Livin g Will 08/08/2020 2:12 PM Documents on File Type Date Recorded Patient Court Recording Monitor Expl anation Advance Directives and Livin g Will 08/08/2020 2:12 PM Discharge Instructions * Instructions* [place] MD - 04/25/2019 Increase fluid intake * Attachments The following attachments cannot be sent through Care Everywhere. * Lightheadedness or Faintness (Northern Irish) documented in this encounter* Attachments The following attachments cannot be sent through Care Everywhere. * Palpitations (Northern Irish) * Premature Heartbeat (Northern Irish) documented in this encounter Assessments Diagnosis Dizzy- Primary Dizziness and giddiness Diagnosis Palpitations- Primary PVC (premature ventricular contraction) Other premature beats Diagnosis Left arm pain- Primary Pain in limb History of Present Illness * Suni Yanes, DAV[employer] DEVELOPER - 05/11/2020 4:20 PM EST HPI Angela Sales female 1985 presents to the [facility] with Chief Complaint Patient presents with Arm Pain left arm pain and numbness, this morning she had a sharp pain in her hip and her chest felt like she was being electrocuted. HR high and palpitations. Patient presents to clinic with left arm pain and numbness and tingling that started around 2:30 this afternoon. She states that earlier in the day she did have right hip pain that doubled her over an electrical shock discomfort in her chest as well and she noted that her heart rate was in the 120s. She currently denies any chest pain or shortness of breath at this time. She denies any weakness to the extremities. She denies any headache, blurred vision, dizziness, photophobia. She denies any medical history. She states that her father has had 3 strokes with this first one being before the age of 50. Patient states that this is related to having a heart issue. She is unable to recall the name. She is not taking anything [id number]. She voices no other concerns at this time. History Not on File No current outpatient medications on file. Family History Problem Relation Age of Onset No known problems Mother Diabetes Father Stroke Father x3 Past Medical History: Diagnosis Date PCOS (polycystic ovarian syndrome) Past Surgical History: Procedure Laterality Date CYSTOSTOMY OOPHORECTOMY Right Social History Socioeconomic History Marital status: Spouse name: Not on file Number of children: Not on file Years of education: Not on file Highest education level: Not on file Occupational History Not on file Social Needs Financial resource strain: Not on file Food insecurity Worry: Not on file Inability: Not on file Transportation needs Medical: Not on file Non-medical: Not on file Tobacco Use Smoking status: Current Every Day Smoker Packs/day: 0.50 Types: Cigarettes Smokeless tobacco: Never Used Substance and Sexual Activity Alcohol use: Yes Comment: rare Drug use: Never Sexual activity: Not on file Lifestyle Physical activity Days per week: Not on file Minutes per session: Not on file Stress: Not on file Relationships Social connections Talks on phone: Not on file Gets together: Not on file Attends yazdanism service: Not on file Active member of club or organization: Not on file Attends meetings of clubs or organizations: Not on file Relationship status: Not on file Intimate partner violence Fear of current or ex partner: Not on file Emotionally abused: Not on file Physically abused: Not on file Forced sexual activity: Not on file Other Topics Concern Service Not Asked Blood Transfusions Not Asked Caffeine Concern Not Asked Occupational Exposure Not Asked Hobby Hazards Not Asked Sleep Concern Not Asked Stress Concern Not Asked Weight Concern Not Asked Special Diet Not Asked Back Care Not Asked Exercise Not Asked Bike Helmet Not Asked Seat Belt Not Asked Domestic Violence No Social History Narrative Not on file ROS Review of Systems Constitutional: Negative. HENT: Negative. Eyes: Negative. Respiratory: Negative. Cardiovascular: Negative. Gastrointestinal: Negative. Musculoskeletal: Positive for arthralgias. Skin: Negative. Neurological: Negative. Psychiatric/Behavioral: Negative. PHYSICAL EXAM Visit Vitals BP 130/90 (BP Location: Right arm, BP Position: Sitting) Pulse 91 Temp 99 F (37.2 C) (Oral) Resp 18 Ht 1.626 m (5' 4) Wt 123.4 kg (272 lb) LMP (Approximate) Comment: has PCOS- irregular periods SpO2 97% No BMI 46.69 kg/m Physical Exam Vitals signs and nursing note reviewed. Constitutional: General: She is not in acute distress. Appearance: Normal appearance. She is not ill-appearing or toxic-appearing. HENT: Head: Normocephalic. Right Ear: External ear normal. Left Ear: External ear normal. Nose: Nose normal. Eyes: Pupils: Pupils are equal, round, and reactive to light. Neck: Musculoskeletal: Normal range of motion. Cardiovascular: Rate and Rhythm: Normal rate. Heart sounds: Normal heart sounds. Pulmonary: Effort: Pulmonary effort is normal. Breath sounds: Normal breath sounds. Abdominal: General: There is no distension. Musculoskeletal: Normal range of motion. Left shoulder: Normal. Left elbow: Normal. Left wrist: Normal. Skin: General: Skin is warm and dry. Capillary Refill: Capillary refill takes less than 2 seconds. Neurological: General: No focal deficit present. Mental Status: She is alert and oriented to person, place, and time. GCS: GCS eye subscore is 4. GCS verbal subscore is 5. GCS motor subscore is 6. Cranial Nerves: Cranial nerves are intact. Sensory: Sensation is intact. Motor: Motor function is intact. Coordination: Coordination is intact. Gait: Gait is intact. Psychiatric: Thought Content: Thought content normal. RESULTS No results found for this or any previous visit (from the past 1 hour(s)). ASSESSMENT/PLAN 1. Left arm pain No orders of the defined types were placed in this encounter. Patient presents to the clinic with left arm pain that started approximately 2:30 this afternoon. She did experience some electric shocks in her chest as well as tachycardia. She is overweight, is a smoker and does have family history of heart problems. She is nontoxic in appearance and converses without difficulty. She does not look to be in any acute distress however with her risk factors and family history is deemed necessary that she be further evaluated at the ER for further evaluation andtreatment. Patient agrees with plan and she is discharged stable If symptoms worsen patient was advised to follow up in our office, primary care provider or the Emergency Dept. Benefits, Risks, Contraindications, and Complications of recommended treatments were explained. The patient understands and agrees to proceed with plan. ADA Murrell 05/11/2020 documented in this encounter Reason for Referral Status Reason Specialty Diagnoses / Procedures Referred By Contact Referred To Contact Authorized Neurology Diagnoses Sleep disturbances Excessive sleepiness while driving Jazzy Hays CNP [address] [place] [address] [facility] [address] Medical Office Building, [address] [place] [address] Status Reason Specialty Diagnoses / Procedures Referred By Contact Referred To Contact Authorized Specialty Services Required/Patien t's Best Interest Sleep Medicine Diagnoses Primary narcolepsy without cataplexy ANABELLE Procedures CT MULTIPLE SLEEP LATENCY TEST CT POLYSOM 6/>YRS SLEEP 4/> ADDL MAO ATTND MSLT/PSG Tato Burns MD [address] [place] [address] [address] [place] [id number] Additional Source Comments INFORMATION SOURCE (unrecogn ized section and content) DATE CREATED AUTHOR 04/25/2019 [facility] DATE CREATED AUTHOR AUTHOR'S ORGANIZ ATION 02/27/2021 [facility] DATE CREATED AUTHOR AUTHOR'S ORGANIZ ATION 05/14/2021 [facility] DATE CREATED AUTHOR AUTHOR'S ORGANIZ ATION 09/07/2021 [facility] DATE CREATED AUTHOR AUTHOR'S ORGANIZ ATION 05/18/2022 [facility] DATE CREATED AUTHOR AUTHOR'S ORGANIZ ATION 01/07/2023 [facility] DATE CREATED AUTHOR AUTHOR'S ORGANIZ ATION 06/06/2023 [facility] DATE CREATED AUTHOR AUTHOR'S ORGANIZ ATION 06/13/2024 [facility] DATE CREATED AUTHOR AUTHOR'S ORGANIZ ATION 12/10/2024 [facility] Reason for Visit (unrecogniz ed section and content) Reason Comments Dizziness Reason Comments Tachycardia worsened over the year Reason Comments Arm Pain left arm pain and nu mbness, this morning she had a sharp pain in her hip and her chest felt like she was being electrocuted. HR high and palpitations. Reason Comments Sore Throat symptoms started yes terday Cough Fever Sinus Congestion Nasal Congestion Reason Comments Facial Pain Left side face pain down into neck x couple months did have xray done at dentist and tooth pulled but still has the pain and not sure if its her ear or what is causing the pain Reason Comments Ear Pain Left ear pain worsen ing. Recently treated here for this issue Reason Comments New Patient Specialty Diagnoses / Procedures Referred By Fabiola green Referred To Contact Otolaryngology Diagnoses Non-recurrent acute serous otitis media of left ear Raiza Borges PA [address] [place] [address] Mercy Wong MD [address] [place] [address] Referral ID Status Reason Start Date Expiration Date Visits Re quested Visits Authorized [id number] Open 05/29/2023 06/22/2024 1 1 [place] MD - 04/25/2019 12:53 AM Mercy Eugene RN - 04/25/2019 12:12 AM Esdras Oliva MD - 08/08/2020 2:43 PM Aruna Guerrero LPN - 08/08/2020 1:39 PM EST ED Notes (unrecognized secti on and content) ED PROVIDER NOTE [facility] NAME: Angela Sales AGE: 33 y.o. : 1985 VISIT DATE: 04/25/2019 CSN: [id number] PCP: Yariel Tripathi MD Chief Complaint Patient presents with Dizziness Patient is here because of dizziness. Some going on for the last 2 days. No high fevers vomiting or chest pain. Patient does have a history of PCOS. Nothing makes his symptoms better or worse. Her last menstrual cycle was about 3 weeks ago. The feelings of feeling of room spinning. History reviewed. No pertinent past medical history. No past surgical history on file. History reviewed. No pertinent family history. Social History Socioeconomic History Marital status: Spouse name: Not on file Number of children: Not on file Years of education: Not on file Highest education level: Not on file Occupational History Not on file Social Needs Financial resource strain: Not on file Food insecurity: Worry: Not on file Inability: Not on file Transportation needs: Medical: Not on file Non-medical: Not on file Tobacco Use Smoking status: Not on file Substance and Sexual Activity Alcohol use: Not on file Drug use: Not on file Sexual activity: Not on file Lifestyle Physical activity: Days per week: Not on file Minutes per session: Not on file Stress: Not on file Relationships Social connections: Talks on phone: Not on file Gets together: Not on file Attends yazdanism service: Not on file Active member of club or organization: Not on file Attends meetings of clubs or organizations: Not on file Relationship status: Not on file Other Topics Concern Not on file Social History Narrative Not on file No current outpatient medications on file prior to encounter. No Known Allergies Review of Systems Neurological: Positive for light-headedness. All other systems reviewed and are negative. Patient Vitals for the past 24 hrs: BP Temp Pulse Resp SpO2 04/25/19 0010 129/79 98.3 F (36.8 C) 87 18 96 % Physical Exam Vitals signs reviewed. HENT: Head: Normocephalic. Nose: Nose normal. Mouth/Throat: Mouth: Mucous membranes are moist. Eyes: Pupils: Pupils are equal, round, and reactive to light. Cardiovascular: Rate and Rhythm: Normal rate and regular rhythm. Pulses: Normal pulses. Pulmonary: Effort: Pulmonary effort is normal. Abdominal: General: Abdomen is flat. Musculoskeletal: Normal range of motion. Skin: Capillary Refill: Capillary refill takes less than 2 seconds. Neurological: General: No focal deficit present. Mental Status: She is alert. Sensory: No sensory deficit. Motor: No weakness. Psychiatric: Mood and Affect: Mood normal. Thought Content: Thought content normal. Laboratory & Radiographic Imaging (if done): Results for orders placed or performed during the hospital encounter of 04/25/19 POC CBC and Differential Result Value Ref Range WBC 9.40 4.50 - 11.00 K/mcL RBC 4.76 4.00 - 5.20 M/mcL Hemoglobin 13.6 12.0 - 16.0 g/dL Hematocrit 41.4 36.0 - 46.0 % MCV 87.0 80.0 - 100.0 fL MCH 28.6 26.0 - 34.0 pg MCHC 32.9 31.0 - 37.0 g/dL RDW - CV 13.9 11.6 - 14.8 % Platelets 276 150 - 400 K/mcL MPV 9.7 9.0 - 15.5 fL Neutrophils 54.3 % Lymphocytes 38.2 % Mixed 7.5 % Neutrophil Abs 5.1 1.7 - 7.0 K/mcl Lymphocyte Abs 3.6 0.9 - 4.0 K/mcl Mixed Abs 0.7 K/mcl POC Basic Metabolic Panel Result Value Ref Range Glucose 165 (H) 65 - 99 mg/dL BUN 11 8 - 25 mg/dL Creatinine 0.51 0.40 - 1.10 mg/dL GFR 129 >=60 mL/min/1.73 m2 Sodium 141 135 - 145 mmol/L Potassium 3.8 3.5 - 5.1 mmol/L Chloride 106 98 - 108 mmol/L TCO2 26 21 - 32 mmol/L Ionized Calcium 4.6 4.5 - 5.3 mg/dL POC , Urine Result Value Ref Range POC Preg Test, Ur Negative Negative No orders to display Procedures MDM Number of Diagnoses or Management Options Diagnosis management comments: We will check labs and make disposition after that. Labs are pretty normal. Symptoms could be most consistent with nonspecific dizziness or a viral syndrome. Patient is advised to increase fluid intake. The patient has been informed that they may have pre-hypertension or hypertension based on a blood pressure reading in the Emergency Department. I recommend that the patient call the primary care provider listed on their discharge instructions or a physician of their choice as soon as possible to arrange follow-up in the next 4 weeks for further evaluation of possible pre-hypertension or hypertension. . Clinical Impression: 1. Dizzy ED Disposition ED Disposition Condition Comment Discharge Stable Angela Sales discharged to home/self care in stable condition. Follow-up Information 1. Yariel Tripathi MD. Specialty: Family Medicine Why: If symptoms worsen [id number] [facility] [address] Contact information for after-discharge care Follow-up information has not been specified. [place] MD 04/25/19 0111 Pt reports feeling dizzy off and on for the past few days. documented in this encounter Associated Order(s): EKG 12-lead [facility] PCP - Yariel Tripathi MD Please excuse grammar and misspelling secondary to Dragon dictation use Chief Complaint Patient presents with Tachycardia worsened over the last year HPI Chief complaint heart flip flopping This is a 34-year-old female presents to the ED stating that she has been having problems since last year with heart flip flopping patient states that yesterday became more severe along with last night. Patient states that she has had intermittent symptoms sometimes almost every month. Sometimes the last 4-5 times a minute. The patient denies any fevers or chills she does have a chronic cough cough she does feel slight shortness of breath. There is no abdominal pain the patient states that she has no exertional chest pain no dizziness or weakness. Patient states that she is a smoker. She states she has been under some stress at work and cut out caffeine. The patient denies any dysuria frequency no flank or back pain denies any syncope or dizziness with symptoms. Patient states she has had a evaluation by primary care previously was told to have expectant management as needed if symptoms get worsen. The patient denies any history of exertional syncope. Again the patient states that symptoms are intermittent seems to be worsening last night with her heart flip flopping patient states that stress does seem to aggravate her symptoms. She has cut out any excessive caffeine intake. MEDICAL DECISION MAKING This is a 34-year-old female who presents to the ED stating that she has been having flip-flopping symptoms in her heart. Patient does have palpitations. I did order routine laboratory diagnostic studies there is no evidence of anemia electrolyte imbalance no evidence of thyroid issues. The patient has no evidence of dehydration no significant metabolic abnormality. The patient during ED monitoring did have a PVC unifocal. Patient was noted to have occasional PVC not constant in nature. Patient's vital signs are otherwise stable I recommend further outpatient follow-up with her physician she may require further outpatient reevaluation with either Holter monitor or event monitor or even echocardiogram if needed. Patient encouraged fluids and outpatient follow-up avoid excess caffeine. Return to the ED if worsening problems other concerns again there is no evidence of acute life-threatening arrhythmia such as a flutter A. fib or SVT at this time. The patient has been informed that they may have pre-hypertension or hypertension based on a blood pressure reading in the Emergency Department. I recommend that the patient call the primary care provider listed on their discharge instructions or a physician of their choice as soon as possible to arrange follow-up in the next 4 weeks for further evaluation of possible pre-hypertension or hypertension. . Results for orders placed or performed during the hospital encounter of 08/08/20 Comprehensive Metabolic Panel Result Value Ref Range Sodium 138 135 - 145 mmol/L Potassium 3.7 3.5 - 5.1 mmol/L Chloride 108 98 - 108 mmol/L Bicarbonate 25 21 - 32 mmol/L Anion Gap 9 (L) 10 - 20 mmol/L Glucose 135 (H) 65 - 99 mg/dL BUN 10 8 - 25 mg/dL Creatinine 0.70 0.40 - 1.10 mg/dL eGFR 115 >=60 mL/min/1.73 m2 BUN/Creatinine Ratio 14.3 10.0 - 20.0 Total Protein 7.8 6.0 - 8.0 g/dL Albumin 3.5 3.2 - 5.2 g/dL Calcium 9.1 8.4 - 10.2 mg/dL Alkaline Phosphatase 76 40 - 140 U/L AST 17 0 - 45 U/L Total Bilirubin 0.2 0.0 - 1.3 mg/dL ALT 30 14 - 65 U/L TSH with Reflex Free T4 Result Value Ref Range TSH 1.08 0.27 - 4.20 mcIU/mL Troponin Result Value Ref Range Troponin I <15 <=45 ng/L Troponin I Interpretation Normal CBC Auto Differential Result Value Ref Range WBC 14.72 (H) 4.50 - 11.00 K/mcL RBC 5.42 (H) 4.00 - 5.20 M/mcL Hemoglobin 14.9 12.0 - 16.0 g/dL Hematocrit 47.9 (H) 36.0 - 46.0 % MCV 88.4 80.0 - 100.0 fL MCH 27.5 26.0 - 34.0 pg MCHC 31.1 31.0 - 37.0 g/dL Platelets 306 150 - 400 K/mcL RDW - CV 13.5 11.6 - 14.8 % MPV 10.1 9.4 - 12.4 fL Neutrophils 60.4 % Lymphocytes 28.5 % Monocytes 9.0 % Eosinophils 1.3 % Basophils 0.5 % IG Percent 0.30 % Neutrophils Abs 8.90 (H) 1.70 - 7.00 K/mcL Lymphocytes Abs 4.19 (H) 0.90 - 4.00 K/mcL Monocytes Abs 1.32 (H) 0.30 - 0.90 K/mcL Eosinophils Abs 0.19 0.00 - 0.50 K/mcL Basophils Abs 0.08 0.00 - 0.30 K/mcL IG Absolute 0.04 0.00 - 0.30 K/mcL Nucleated RBC 0.0 % Nucleated RBC Abs 0.00 0.00 - 0.00 K/mcL Radiographic Imaging (if any) During ED Visit All Radiographic Imaging (if any) were read by Radiologist and reviewed and viewed by myself I have also reviewed narcotic score prior to giving any narcotic pain medications XR Chest AP/PA and LAT Final Result No radiographic evidence of acute cardiopulmonary disease. Workstation ID: [id number] Medications Ordered/Given During ED Visit Medications - No data to display EKG 12-lead Date/Time: 08/08/2020 1:50 PM Performed by: Esdras Cruz MD Authorized by: Esdras Cruz MD Interpreted by ED attending physician Comparison: not compared with previous ECG Rhythm: sinus rhythm BPM: 97 Conduction: conduction normal CT Interval: 150 QRS Interval: 86 QT Interval: 426 Other findings: low voltage Clinical impression: non-specific ECG and low voltage Review of Systems Review of Systems Constitutional: Negative for appetite change, chills and fever. HENT: Negative for ear pain and sore throat. Eyes: Negative for visual disturbance. Respiratory: Negative for shortness of breath. Cardiovascular: Positive for palpitations. Negative for chest pain and leg swelling. Gastrointestinal: Negative for abdominal pain, constipation, diarrhea, nausea and vomiting. Endocrine: Negative for polyuria. Genitourinary: Negative for difficulty urinating, dysuria and flank pain. Musculoskeletal: Negative for arthralgias, back pain, myalgias and neck stiffness. Skin: Negative for color change and rash. Neurological: Negative for dizziness, weakness and light-headedness. Psychiatric/Behavioral: Negative for confusion, hallucinations and suicidal ideas. The patient is not nervous/anxious. All other systems reviewed and are negative. All systems reviewed negative except as mentioned above. Physical Exam Vital Signs During ED Visit (as charted by nursing) Patient Vitals for the past 24 hrs: BP Temp Temp src Pulse Resp SpO2 Height Weight 08/08/20 1430 130/86 94 96 % 08/08/20 1351 (!) 150/95 98.7 F (37.1 C) Oral 99 14 97 % 08/08/20 1347 5' 4 122.5 kg (270 lb) 08/08/20 1345 97 % Physical Exam Constitutional: General: She is not in acute distress. Appearance: She is well-developed. She is obese. She is not diaphoretic. HENT: Head: Normocephalic and atraumatic. Right Ear: External ear normal. Left Ear: External ear normal. Eyes: Pupils: Pupils are equal, round, and reactive to light. Neck: Musculoskeletal: Neck supple. Cardiovascular: Rate and Rhythm: Normal rate and regular rhythm. Pulses: Normal pulses. Heart sounds: Normal heart sounds, S1 normal and S2 normal. No murmur. Pulmonary: Effort: Pulmonary effort is normal. No respiratory distress. Breath sounds: Normal breath sounds. Abdominal: General: Bowel sounds are normal. There is no distension. Palpations: Abdomen is soft. There is no mass. Tenderness: There is no abdominal tenderness. There is no guarding. Negative signs include Salgado's sign and McBurney's sign. Hernia: No hernia is present. Musculoskeletal: Normal range of motion. General: No swelling. Right lower leg: No edema. Left lower leg: No edema. Lymphadenopathy: Cervical: No cervical adenopathy. Skin: General: Skin is warm. Capillary Refill: Capillary refill takes less than 2 seconds. Neurological: General: No focal deficit present. Mental Status: She is alert and oriented to person, place, and time. She is not disoriented. Cranial Nerves: No cranial nerve deficit. Psychiatric: Mood and Affect: Mood normal. Speech: Speech normal. Behavior: Behavior normal. Past Medical History Past Medical History: Diagnosis Date PCOS (polycystic ovarian syndrome) Past Surgical History Past Surgical History: Procedure Laterality Date ovary removed Right 2010 Family History History reviewed. No pertinent family history. Social History Social History Socioeconomic History Marital status: Spouse name: Not on file Number of children: Not on file Years of education: Not on file Highest education level: Not on file Occupational History Not on file Social Needs Financial resource strain: Not on file Food insecurity Worry: Not on file Inability: Not on file Transportation needs Medical: Not on file Non-medical: Not on file Tobacco Use Smoking status: Current Every Day Smoker Smokeless tobacco: Never Used Substance and Sexual Activity Alcohol use: Never Frequency: Never Drug use: Never Sexual activity: Not on file Lifestyle Physical activity Days per week: Not on file Minutes per session: Not on file Stress: Not on file Relationships Social connections Talks on phone: Not on file Gets together: Not on file Attends yazdanism service: Not on file Active member of club or organization: Not on file Attends meetings of clubs or organizations: Not on file Relationship status: Not on file Other Topics Concern Not on file Social History Narrative Not on file Allergies No Known Allergies Medications Patient's Medications No medications on file Esdras Cruz MD 08/08/20 1504 Bed: 14 Expected date: Expected time: Means of arrival: Comments: Next patient documented in this encounter 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 This clinical summary was aggregated from multiple sources. Caution should be exercised in using it in the provision of clinical care. This summary normalizes information from multiple sources, and as a consequence, information in this document may materially change the coding, format and clinical context of patient data. In addition, data may be omitted in some cases. CLINICAL DECISIONS SHOULD BE BASED ON THE PRIMARY CLINICAL RECORDS. [facility]. provides no warranty or guarantee of the accuracy or completeness of information in this document.
== END | disposition home or self-care (01) ==
PROVIDERS: Referring Provider Obstetrics & Gynecology; Visit Provider Obstetrics & Gynecology
DX: N91.2 Amenorrhea, unspecified (principal)
CPT/HCPCS: 36415; 84702

== ENCOUNTER → 2024-12-24 | Outpatient (CLI) | payer SELFPAY ==
--- NOTE | 2024-12-24 15:25 | US_ITS ---
PROCEDURE: TRANSVAGINAL W/PREG US 12/24/2024 REASON FOR EXAM: SPOTTING IN EARLY TECHNIQUE: TRANSVAGINAL W/PREG US. Status post right oophorectomy. COMPARISON: None FINDINGS: LMP: November 03, 2024. Comments: Transvaginal imaging was performed Number of Gestational Sacs: 1 Gestational Sac Shape: Normal Number of Fetuses: 1 Heart Rate: 150 beats per minute (average) Yolk Sac: Present and unremarkable. Placenta: Presently not well-visualized Amniotic Fluid Volume: Subjectively normal for gestational age. Uterine Abnormalities: Maternal uterus is unremarkable. Ovaries / Adnexa: Status post right oophorectomy. The left ovary measures 5.5 cm 4.8 cm 4 cm. There is a 4.6 cm x 3.9 cm x 3 cm left ovarian cyst. DIMENSIONS: Parameter Measurement / EGA [place] Rump Length: 1.1 cm/7 weeks and 2 days Gestational Sac: 2.8 cm/7 weeks and 6 days. Adjacent to the gestational sac, there appears to be a subchorionic hematoma measuring 2.1 cm 3 cm 0.8 cm. Yolk Sac: 3 mm/ ESTIMATED GESTATIONAL AGE: By Ultrasound: 7 weeks and 4 days. By LMP: 7 weeks and 2 days ESTIMATED DATE OF DELIVERY: By Ultrasound: August 08, 2025 By LMP: August 10, 2025 US/Transvaginal w/Preg US IMPRESSION: UNREMARKABLE FIRST TRIMESTER ULTRASOUND. Findings suggestive of a 2.1 cm 3 cm x 0.8 cm subchorionic hematoma adjacent to the gestational sac. 4.6 cm 3.9 cm 3 cm left ovarian cyst. Reading Location: [facility]
== END | disposition home or self-care (01) ==
LOC: US 15:22
PROVIDERS: Referring Provider Obstetrics & Gynecology; Visit Provider Obstetrics & Gynecology
DX: O26.851 Spotting complicating pregnancy, first trimester (principal); Z3A.01 Less than 8 weeks gestation of pregnancy
CPT/HCPCS: 76817

== ENCOUNTER → 2025-01-10 | Outpatient (CLI) | payer SELFPAY ==
[2025-01-14 04:07] LABS: Chlamydia By Nucleic Acid AMP Negative (Negative); Gonococcus By Nucleic Acid AMP Negative (Negative)
== END | disposition home or self-care (01) ==
LOC: LABSPEC 14:44
PROVIDERS: Referring Provider Obstetrics & Gynecology; Visit Provider Obstetrics & Gynecology
DX: O09.90 Supervision of high risk pregnancy, unspecified, unspecified trimester (principal); Z3A.00 Weeks of gestation of pregnancy not specified; Z12.4 Encounter for screening for malignant neoplasm of cervix
CPT/HCPCS: 87086; 87088; 87491; 87591; 87624; 88175; G0145

== ENCOUNTER → 2025-01-29 | Outpatient (CLI) | payer SELFPAY ==
[2025-01-29 12:25] LABS: Hematocrit 38.5 % (37-47); Hemoglobin 12.8 g/dL (12.0-15.0); Immature Granulocytes Count 0.050 X10^3/uL (0.0-0.0); Mean Corp Hgb Conc 33.2 g/dL (32-36); Mean Corpuscular Volume 89.5 fL (81-99); Mean Platelet Vol. 10.3 fl (6.2-12.0); NRBC Flagged by Analyzer 0 % (0-5); Platelet Count 235 K/mm3 (150-450); RBC Distribution Width CV 12.7 % (11.6-14.6); RBC Distribution Width SD 41.6 fl (35.1-43.9); Red Blood Count 4.30 M/mm3 (4.2-5.4); White Blood Count 11.5 K/mm3 (4.4-11.0)
[2025-01-29 13:09] LABS: HIV Nonreactive (Nonreactive); Hepatitis B Surface Antigen Nonreactive (Nonreactive); Hepatitis C Antibody Nonreactive (Nonreactive); Syphilis Antibodies Nonreactive (Nonreactive)
== END | disposition home or self-care (01) ==
PROVIDERS: Obstetrics & Gynecology; Referring Provider Nurse Practitioner Women's Health; Visit Provider Nurse Practitioner Women's Health
DX: O09.90 Supervision of high risk pregnancy, unspecified, unspecified trimester (principal); O99.210 Obesity complicating pregnancy, unspecified trimester; Z3A.00 Weeks of gestation of pregnancy not specified
CPT/HCPCS: 36415; 83036; 85025; 86703; 86762; 86780; 86803; 86850; 86900; 86901; 87340

== ENCOUNTER 2025-04-10 13:55 | Outpatient (CLI) | payer SELFPAY ==
[2025-04-10 14:10] VITALS: RESP 16; TEMP 36.9
[2025-04-10 14:17] VITALS: PULSE 87; O2SAT 97
[2025-04-10 14:19] VITALS: BP 137/65; PULSE 80
[2025-04-10 14:29] LABS: Hematocrit 34.7 % (37-47); Hemoglobin 11.5 g/dL (12.0-15.0); Immature Granulocytes Count 0.040 X10^3/uL (0.0-0.0); Mean Corp Hgb Conc 33.1 g/dL (32-36); Mean Corpuscular Volume 84.8 fL (81-99); Mean Platelet Vol. 9.8 fl (6.2-12.0); NRBC Flagged by Analyzer 0 % (0-5); Platelet Count 236 K/mm3 (150-450); RBC Distribution Width CV 13.2 % (11.6-14.6); RBC Distribution Width SD 40.5 fl (35.1-43.9); Red Blood Count 4.09 M/mm3 (4.2-5.4); White Blood Count 10.9 K/mm3 (4.4-11.0)
[2025-04-10 14:37] VITALS: BP 116/56; PULSE 83
[2025-04-10 14:52] LABS: Prothrombin Time (Protime)PT. 13.5 SECONDS (11.7-14.9)
[2025-04-10 14:53] LABS: Fibrinogen 480 mg/dl (203-444)
[2025-04-10 14:58] LABS: Partial Thromboplast Time 22.4 Seconds (24.1-36.2)
[2025-04-10 15:20] LABS: AST(SGOT) 22 U/L (<=31); Alanine Aminotransfer ALT/SGPT 8 U/L (<=34); Albumin, Serum 3.7 g/dL (3.5-5.0); Alkaline Phosphatase 81 U/L (35-104); Anion Gap 13 (5-15); BUN 7 mg/dL (4-19); BUN/Creat Ratio 17.6 RATIO (10-20); Calcium,Total 8.8 mg/dL (7.6-11.0); Carbon Dioxide 20.1 mmol/L (21.0-32.0); Chloride 103 mmol/L (98-108); Globulin 3.0 g/dL (2.2-4.2); Glucose 198 mg/dL (70-99); Potassium 3.5 mmol/L (3.3-5.1)
[2025-04-10] MEDS: Rho(D) Immune Globulin 300 MCG (1500 Unit) Syringe IV (18:53)
== END 2025-04-10 19:05 | disposition home or self-care (01) ==
LOC: WPOUT 13:59 → WP 14:00
PROVIDERS: Referring Provider Obstetrics & Gynecology; Visit Provider Obstetrics & Gynecology
DX: O9A.212 Injury, poisoning and certain other consequences of external causes complicating pregnancy, second trimester (principal); S39.91XA Unspecified injury of abdomen, initial encounter; W55.82XA Struck by other mammals, initial encounter; O09.512 Supervision of elderly primigravida, second trimester; O99.212 Obesity complicating pregnancy, second trimester; O99.891 Other specified diseases and conditions complicating pregnancy; O26.892 Other specified pregnancy related conditions, second trimester; Z67.11 Type A blood, Rh negative; Z3A.21 21 weeks gestation of pregnancy; Z87.891 Personal history of nicotine dependence
CPT/HCPCS: 36415; 59050; 76815; 80053; 85025; 85384; 85460; 85461; 85610; 85730; 90384; 99221; G0378; J2790; J2791

== ENCOUNTER → 2025-05-19 | Outpatient (CLI) | payer SELFPAY ==
[2025-05-19 12:01] LABS: Hematocrit 37.7 % (37-47); Hemoglobin 12.1 g/dL (12.0-15.0); Immature Granulocytes Count 0.060 X10^3/uL (0.0-0.0); Mean Corp Hgb Conc 32.1 g/dL (32-36); Mean Corpuscular Volume 85.3 fL (81-99); Mean Platelet Vol. 10.3 fl (6.2-12.0); NRBC Flagged by Analyzer 0 % (0-5); Platelet Count 222 K/mm3 (150-450); RBC Distribution Width CV 13.8 % (11.6-14.6); RBC Distribution Width SD 42.8 fl (35.1-43.9); Red Blood Count 4.42 M/mm3 (4.2-5.4); White Blood Count 11.1 K/mm3 (4.4-11.0)
[2025-05-19 13:06] LABS: Glucose Challenge Gest 1H 50g 274 mg/dL (70-140); HIV Nonreactive (Nonreactive); Syphilis Antibodies Nonreactive (Nonreactive)
== END | disposition home or self-care (01) ==
PROVIDERS: Visit Provider Obstetrics & Gynecology
DX: O26.891 Other specified pregnancy related conditions, first trimester (principal); Z67.91 Unspecified blood type, Rh negative; Z3A.00 Weeks of gestation of pregnancy not specified; Z13.1 Encounter for screening for diabetes mellitus
CPT/HCPCS: 36415; 82950; 85025; 86703; 86780; 86850; 86900; 86901